=== PATIENT | male | born 1945 | race Hispanic/Latino ===

== ENCOUNTER 2016-05-13 19:45 | Observation (INO) | payer MEDICARE, BC ==
[2016-05-13 20:02] VITALS: BMI 38.7
--- NOTE | 2016-05-13 21:05 | ED PDOC ---
Arrival/HPI - General Chief Complaint: Lower Extremity Problem/Injury Time Seen by Provider: 05/13/16 19:58 Historian: Patient - History of Present Illness Narrative History of Present Illness (Text): 05/13/16 20:05 Isreal Borjas is a 70 year old male, whose past medical history includes CAD with multiple PCIs, hypertension, diabetes, and dyslipidemia, who presents to the ED sent by his PMD for bilateral lower extremity swelling for 2 weeks. Patient also reports associated erythema to the area. Patient denies any fever, chills, chest pain, shortness of breath, nausea, vomiting, diarrhea, urinary symptoms, back pain, neck pain, headache, dizziness, or any other complaints. PMD: Dr. Maximus Cruz Time/Duration: Other (2 weeks) Symptom Onset: Gradual Symptom Course: Unchanged Activities at Onset: Rest, Light Context: Home Past Medical History - Provider Review Nursing Documentation Reviewed: Yes - Infectious Disease Hx of Infectious Diseases: None - Tetanus Immunization Tetanus Immunization: Unknown - Cardiac Hx Cardiac Disorders: Yes (CAD, open heart sx 20 yrs ago) - Pulmonary Hx Respiratory Disorders: Yes Hx Bronchitis: Yes - HEENT Hx HEENT Disorder: No (WEARS RX GLASSES) - Endocrine/Metabolic Hx Diabetes Mellitus Type 2: Yes - Integumentary Other/Comment: melanoma removed form upper back 5 yr ago - Musculoskeletal/Rheumatological Hx Arthritis: Yes (L hip, R knee) - Gastrointestinal Hx Gastrointestinal Disorders: No - Genitourinary/Gynecological Hx Genitourinary Disorders: No Hx Reproductive Disorders: Yes (BPH) - Psychiatric Hx Depression: No Hx Emotional Abuse: No Hx Physical Abuse: No Hx Substance Use: No - Surgical History Hx Cardiac Catheterization: Yes (x5) Hx Coronary Stent: Yes (x2) Hx Open Heart Surgery: Yes (bypass x6, cardiac stent x2, cardiac cath x5) - Anesthesia Hx Anesthesia: Yes Hx Anesthesia Reactions: No Hx Malignant Hyperthermia: No - Suicidal Assessment Feels Threatened In Home Enviroment: No Family/Social History - Physician Review Nursing Documentation Reviewed: Yes Family/Social History: No Known Family HX Smoking Status: Former Smoker Hx Alcohol Use: Yes (socially) Frequency of alcohol use: Socially Hx Substance Use: No Allergies/Home Meds Allergies/Adverse Reactions: Allergies No Known Allergies Allergy (Verified 02/19/15 17:43) Home Medications: Home Meds Medication Instructions Recorded Confirmed Glipizide 10 mg PO BID 07/12/12 02/19/15 Metformin HCl 1,000 mg PO BID 07/12/12 02/19/15 Rivaroxaban [Xarelto] 15 mg PO DAILY 12/07/12 02/19/15 Aspirin [Ecotrin] 81 mg PO DAILY 02/08/14 02/19/15 Magnesium Oxide 400 mg PO DAILY 02/08/14 02/19/15 Potassium Chloride [Klor-Con 10] 10 meq PO DAILY 02/08/14 02/19/15 Atorvastatin [Lipitor] 40 mg PO DAILY 10/31/14 02/19/15 Losartan Potassium [Cozaar] 100 mg PO DAILY 10/31/14 02/19/15 Insulin Glargine,Hum.rec.anlog 30 unit SC AMHS 02/16/15 02/19/15 [Lantus] Lansoprazole [Prevacid] 30 mg PO DAILY 02/16/15 02/19/15 Silodosin [Rapaflo] 4 mg PO HS 02/16/15 02/19/15 Review of Systems - Physician Review All systems were reviewed & negative as marked: Yes - Review of Systems Constitutional: Normal. absent: Fevers Eyes: Normal ENT: Normal Respiratory: Normal. absent: SOB, Cough Cardiovascular: Normal. absent: Chest Pain Gastrointestinal: Normal. absent: Abdominal Pain, Diarrhea, Nausea, Vomiting Genitourinary Male: Normal. absent: Dysuria, Frequency, Hematuria, Urinary Output Changes Musculoskeletal: Other (+bilateral lower extremity swelling). absent: Neck Pain , Joint Swelling Skin: Normal. absent: Rash Neurological: Normal. absent: Headache, Dizziness Endocrine: Normal Hemo/Lymphatic: Normal Psychiatric: Normal Physical Exam Vital Signs Reviewed: Yes Vital Signs Temp Pulse Resp BP Pulse Ox 05/14/16 00:58 62 126/71 05/14/16 00:54 62 19 128/67 99 05/13/16 22:51 66 18 153/72 H 94 L 05/13/16 22:42 153/72 H 05/13/16 20:21 98.3 F 67 18 142/49 L 96 Temperature: Afebrile Blood Pressure: Normal Pulse: Regular Respiratory Rate: Normal Appearance: Positive for: Well-Appearing, Non-Toxic, Comfortable Pain Distress: None Mental Status: Positive for: Alert and Oriented X 3 - Systems Exam Head: Present: Atraumatic, Normocephalic Pupils: Present: PERRL Extroacular Muscles: Present: EOMI Conjunctiva: Present: Normal Mouth: Present: Moist Mucous Membranes Neck: Present: Normal Range of Motion Respiratory/Chest: Present: Clear to Auscultation, Good Air Exchange. No: Respiratory Distress, Accessory Muscle Use Cardiovascular: Present: Regular Rate and Rhythm, Normal S1, S2. No: Murmurs Abdomen: Present: Normal Bowel Sounds. No: Tenderness, Distention, Peritoneal Signs Back: Present: Normal Inspection Upper Extremity: Present: Normal Inspection. No: Cyanosis, Edema Lower Extremity: Present: Swelling (Bilateral lower extremity swelling, left greater than right), Erythema (Bilateral lower extremity erythema), Neurovascularly Intact. No: Edema Neurological: Present: GCS=15, CN II-XII Intact, Speech Normal Skin: Present: Warm, Dry, Normal Color. No: Rashes Psychiatric: Present: Alert, Oriented x 3, Normal Insight, Normal Concentration Medical Decision Making ED Course and Treatment: 05/13/16 20:05 Impression: 70 year old male sent for bilateral lower extremity swelling for 2 weeks with erythema. Differential Diagnosis include but are not limited to: DVT vs. cellulitis vs. PVD Plan: -- EKG -- Chest X-ray -- US Duplex Lower Extremities -- Labs, blood cultures -- Reassess and disposition Prior Visits: Notes and results from previous visits were reviewed. On 02/16/2015, pt was seen in the ED for shortness of breath and cough. Pt was admitted to the hospital for further evaluation. Progress Notes: Reviewed EKG, a fib at [address] bpm[address] Non-specific ST/T wave changes. 05/13/16 21:01 Reviewed sono, US Duplex Lower Extremities are negative for DVT. Reviewed radiology, Chest X-ray shows mild CHF. 05/13/16 22:[address] Cruz, who is aware and agrees with plan. Accepts pt in to his service. Requests CT Abdomen and Pelvis. Pt will go to Telemetry for CHF. Pt is no acute distress. Discussed results and hospital observation plan with pt , who is aware and verbalizes understanding. 05/13/16 23:[address] Abdomen and Pelvis, shows: 1. There is mild bilateral inguinal lymphadenopathy. 2. Question mild anal rectal wall thickening versus underdistention. 3. There is some anasarca in both flank and both hip regions, left greater than right. 4. Additional incidental and/or chronic findings as described. 05/14/16 00:35 - Lab Interpretations Microbiology Results: Microbiology Results 05/13/16 21:17 Blood-Venous Blood Culture - Preliminary NO GROWTH AFTER 3 DAYS 05/13/16 21:17 Blood-Venous Blood Culture - Preliminary NO GROWTH AFTER 3 DAYS Lab Results: 05/13/16 21:17 05/13/16 21:17 Lab Results 05/13/16 21:27: Troponin I 0.01 D, NT-Pro-B Natriuret Pep 2040 H 05/13/16 21:17: WBC 7.0 D, RBC 3.52, Hgb 11.1 L, Hct 34.2 L, MCV 97.2, MCH 31.5 , MCHC 32.5, RDW 16.4 H, Plt Count 211, MPV 11.1 H, Gran % 69.5 H, Lymph % (Auto ) 17.9 L, [place] % (Auto) 7.7 H, Eos % (Auto) 4.8, Baso % (Auto) 0.1, Gran # 4.88 , Lymph # 1.3, [place] # 0.5, Eos # 0.3, Baso # 0.01, PT 12.6 H, INR 1.17 H, APTT 30.7, Sodium 141, Potassium 4.0, Chloride 100, Carbon Dioxide 24, Anion Gap 21 H , BUN 17, Creatinine 1.4, Est GFR ( Amer) > 60, Est GFR (Non-Af Amer) 50 , Random Glucose 110, Calcium 9.2, Total Bilirubin 1.1, AST 25, ALT 21, Alkaline Phosphatase 96, Total Protein 7.4, Albumin 4.0, Globulin 3.5, Albumin/ Globulin Ratio 1.1 I have reviewed the lab results: Yes - RAD Interpretation Narrative RAD Interpretations (Text): CT Abdomen and Pelvis shows: Lower thorax: There is minimal bibasilar atelectasis. ABDOMEN: Liver: There are no focal liver lesions present. Gallbladder and bile ducts: Multiple calcified gallstones are present. No ductal dilation. Pancreas: Pancreas is partially fatty replaced. No ductal dilation. Spleen: The spleen is normal. Adrenals: The adrenal glands are normal. Kidneys and ureters: The kidneys are normal. No obstructing stones. No hydronephrosis. Stomach and bowel: Question mild anal rectal wall thickening versus underdistention. The stomach is normal. There is no evidence of intestinal obstruction. Colonic constipation is present. Appendix: A normal appendix is identified. PELVIS: Bladder: Bladder is decompressed. No stones. Reproductive: Prostate is enlarged measuring 5.1 CM transverse. ABDOMEN and PELVIS: Intraperitoneal space: There is no evidence of free intraperitoneal fluid. There is no free intraperitoneal air. Bones/joints: There is some anasarca in both flank and both hip regions, left greater than right. There are moderate degenerative changes present. There is moderate diffuse osteopenia. Soft tissues: There are bilateral fat-containing inguinal hernias. Vasculature: The aorta demonstrates moderate atherosclerotic calcification. No abdominal aortic aneurysm. Lymph nodes: There is mild bilateral inguinal lymphadenopathy. There are some top normal retroperitoneal nodes without jose d adenopathy. IMPRESSION: 1. There is mild bilateral inguinal lymphadenopathy. 2. Question mild anal rectal wall thickening versus underdistention. 3. There is some anasarca in both flank and both hip regions, left greater than right. 4. Additional incidental and/or chronic findings as described. Radiology Orders: 05/13/16 20:06 DUPLEX LOWER EXTRM VEIN BILAT [US] Stat 05/13/16 20:07 CHEST ONE VIEW [RAD] Stat 05/13/16 22:13 ABD & PELVIS W/O PO OR IV CONT [CT] Stat [employer]: ED Physician, Radiologist - EKG Interpretation Interpreted by ED Physician: Yes Type: 12 lead EKG - Medication Orders Current Medication Orders: Discontinued Medications Amiodarone HCl (Cordarone) 200 mg PO DAILY [facility] Last Admin: 05/15/16 09:31 Dose: 200 MG MAR Pulse and Blood Pressure Document 05/15/16 09:31 IG (Rec: 05/15/16 09:31 [id number]) Pulse Pulse Rate (60-90) 64 Blood Pressure Blood Pressure (100/60-150/90) 140/64 Aspirin (Ecotrin) 81 mg PO DAILY [facility] Last Admin: 05/15/16 09:30 Dose: 81 MG Atorvastatin Calcium (Lipitor) 40 mg PO DAILY [facility] Last Admin: 05/15/16 09:30 Dose: 40 MG Clopidogrel Bisulfate (Plavix) 75 mg PO DAILY [facility] Last Admin: 05/15/16 09:32 Dose: 75 MG Furosemide (Lasix) 20 mg IVP ONCE ONE Stop: 05/13/16 22:06 Last Admin: 05/13/16 22:42 Dose: 20 MG MAR Blood Pressure Document 05/13/16 22:42 MR (Rec: 05/13/16 22:42 MR [facility]-[id number]) Blood Pressure Blood Pressure (100/60-150/90) 153/72 IVP Administration Document 05/13/16 22:42 MR (Rec: 05/13/16 22:42 MR [facility] [place] [place]-[id number]) Charges for Administration # of IVP Administrations 1 Furosemide (Lasix) 40 mg IVP BID GLENNY Stop: 05/15/16 11:00 Last Admin: 05/15/16 11:09 Dose: 40 MG MAR Blood Pressure Document 05/15/16 11:09 IG (Rec: 05/15/16 11:09 IG [facility] [place] [id number]) Blood Pressure Blood Pressure (100/60-150/90) 150/80 IVP Administration Document 05/15/16 11:09 IG (Rec: 05/15/16 11:09 IG [facility] [id number]) Charges for Administration # of IVP Administrations 1 Furosemide (Lasix) 40 mg PO 0800,1400 [facility] Last Admin: 05/15/16 14:09 Dose: Ceftriaxone Sodium (Rocephin 1 Gram Ivpb) 100 mls @ 100 mls/hr IVPB DAILY [facility] PRN Reason: Protocol Last Admin: 05/14/16 10:12 Dose: 100 MLS/HR eMAR Start Stop Document 05/14/16 10:12 MOOKIE (Rec: 05/14/16 10:12 MOOKIE [facility] [place]-[id number]) Intravenous Solution Start Date 05/14/16 Start Time 10:12 End Date 05/14/16 End time 11:12 Total Infusion Time 60 Insulin Human Regular (Humulin R Low) 0 units SC ACHS GLNENY PRN Reason: Protocol Last Admin: 05/15/16 08:19 Dose: Not Given Non-Admin Reason: Blood Sugar Parameter Levothyroxine Sodium (Synthroid) 50 mcg PO ACB [facility]ENNY Last Admin: 05/15/16 11:09 Dose: 50 MCG Losartan Potassium (Cozaar) 100 mg PO DAILY [facility] Last Admin: 05/15/16 09:30 Dose: 100 MG Magnesium Oxide (Mag-Ox) 400 mg PO BID [facility] Last Admin: 05/15/16 09:30 Dose: 400 MG Metformin HCl (Glucophage) 1,000 mg PO BID [facility] Last Admin: 05/15/16 09:40 Dose: 1,000 MG Metoprolol Tartrate (Lopressor) 50 mg PO BID [facility] Last Admin: 05/15/16 09:30 Dose: 50 MG MAR Pulse and Blood Pressure Document 05/15/16 09:30 IG (Rec: 05/15/16 09:31 IG [id number]) Pulse Pulse Rate (60-90) 64 Blood Pressure Blood Pressure (100/60-150/90) 140/74 Silodosin [Rapaflo] (4 Mg (Home Med)) 4 mg PO HS [facility] Last Admin: 05/14/16 22:07 Dose: Rivaroxaban (Xarelto) 15 mg PO DAILY [facility] Last Admin: 05/14/16 10:13 Dose: 15 MG - Xochilt Statement The provider has reviewed the documentation as recorded by the Xochilt Abarca All medical record entries made by the Xochilt were at my direction and personally dictated by me. I have reviewed the chart and agree that the record accurately reflects my personal performance of the history, physical exam, medical decision making, and the department course for this patient. I have also personally directed, reviewed, and agree with the discharge instructions and disposition. Disposition/Present on Arrival - Present on Arrival Any Indicators Present on Arrival: No History of DVT/PE: No History of Uncontrolled Diabetes: No Urinary Catheter: No History of Decub. Ulcer: No History Surgical Site Infection Following: None - Disposition Have Diagnosis and Disposition been Completed?: Yes Diagnosis: Congestive heart failure Disposition: HOSPITALIZED Disposition Time: 22:00 Condition: FAIR
[2016-05-13 21:29] LABS: ADD MANUAL DIFF? NO
[2016-05-13 21:44] LABS: BASO # 0.01 K/mm3 (0.0-2.0); BASO % 0.1 % (0.0-3.0); EOS # 0.3 (0.0-0.7); EOS % 4.8 % (1.5-5.0); GRAN # 4.88 (1.4-6.5); GRAN % 69.5 % (50.0-68.0); HEMATOCRIT 34.2 % (42.0-52.0); LYMPH # 1.3 (1.2-3.4); LYMPH % 17.9 % (22.0-35.0); MEAN CELL VOLUME 97.2 fL (80.0-105.0); MEAN CORPUSCULAR HEMOGLOBIN 31.5 pg (25.0-35.0); MEAN CORPUSCULAR HGB CONC 32.5 g/dl (31.0-37.0); MEAN PLATELET VOLUME 11.1 fl (7.0-11.0); MONO # 0.5 (0.1-0.6); MONO % 7.7 % (1.0-6.0); PLATELET COUNT 211 10^3/uL (120.0-450.0); RED CELL DISTRIBUTION WIDTH 16.4 % (11.5-14.5)
[2016-05-13 21:51] LABS: ALB/GLOB RATIO 1.1 (1.1-1.8); ALKALINE PHOSPHATASE 96 U/L (38-133); ALT/SGPT 21 U/L (7-56); AST/SGOT 25 U/L (15-59); BILIRUBIN,TOTAL 1.1 mg/dL (0.2-1.3); BLOOD UREA NITROGEN 17 mg/dL (7-21); CALCIUM 9.2 mg/dL (8.4-10.5); CARBON DIOXIDE 24 mmol/L (21-33); CHLORIDE 100 mmol/L (98-107); GFR AFRICAN-AMERICAN > 60; GLUCOSE,RANDOM 110 mg/dL (70-110); SODIUM 141 mmol/L (132-148); TOTAL PROTEIN 7.4 g/dL (5.8-8.3)
[2016-05-13 21:55] LABS: INR 1.17 (0.93-1.08); PARTIAL THROMBOPLASTIN TIME 30.7 Seconds (23.7-30.8)
[2016-05-13 23:13] LABS: TROPONIN I 0.01 ng/mL
--- NOTE | 2016-05-14 07:18 | CT ---
PROCEDURE: CT Abdomen and Pelvis without intravenous contrast HISTORY: left leg swelling COMPARISON: None. TECHNIQUE: Unenhanced study. Neither oral nor intravenous contrast administered. Radiation dose: Total exam DLP = 1203.89 mGy-cm. FINDINGS: LOWER THORAX: Unremarkable. LIVER: Unremarkable. No gross lesion or ductal dilatation. GALLBLADDER AND BILE DUCTS: Cholelithiasis without CT evidence of acute cholecystitis. PANCREAS: Unremarkable. No gross lesion or ductal dilatation. SPLEEN: Unremarkable. ADRENALS: Unremarkable. No mass. KIDNEYS AND URETERS: Unremarkable. No hydronephrosis. No solid mass. VASCULATURE: Unremarkable. No aortic aneurysm. BOWEL: Unremarkable. No obstruction. No gross mural thickening. APPENDIX: Unremarkable. Normal appendix. PERITONEUM: Unremarkable. No free fluid. No free air. LYMPH NODES: Small mesenteric and retroperitoneal lymph nodes. Similar-sized bilateral asymmetric lymph nodes in the inguinal regions. BLADDER: Unremarkable. REPRODUCTIVE: Unremarkable. BONES: No acute fracture. OTHER FINDINGS: Bilateral fat containing hernias. IMPRESSION: Cholelithiasis without CT evidence of acute cholecystitis. Retroperitoneal, pelvic and bilateral inguinal lymphadenopathy although the preponderance 1 lymph nodes are less than 1 cm. Concordant results (preliminary interpretation) provided by [employer]. Procedure Completed: 22:55 Preliminary ([facility]) Report: Dictated and Authenticated: 23:19. Final Interpretation: 07:17. May 14, 2016.
[2016-05-14 07:30] LABS: ADD MANUAL DIFF? NO
[2016-05-14 07:35] LABS: BASO # 0.02 K/mm3 (0.0-2.0); BASO % 0.3 % (0.0-3.0); EOS # 0.3 (0.0-0.7); EOS % 5.1 % (1.5-5.0); GRAN # 4.64 (1.4-6.5); GRAN % 69.2 % (50.0-68.0); HEMATOCRIT 36.9 % (42.0-52.0); LYMPH # 1.2 (1.2-3.4); LYMPH % 17.9 % (22.0-35.0); MEAN CELL VOLUME 97.9 fL (80.0-105.0); MEAN CORPUSCULAR HEMOGLOBIN 30.5 pg (25.0-35.0); MEAN CORPUSCULAR HGB CONC 31.2 g/dl (31.0-37.0); MONO # 0.5 (0.1-0.6); MONO % 7.5 % (1.0-6.0); PLATELET COUNT 204 10^3/uL (120.0-450.0); RED CELL DISTRIBUTION WIDTH 16.6 % (11.5-14.5); WHITE BLOOD COUNT 6.7 10^3/ul (4.5-11.0)
[2016-05-14 07:47] LABS: CALCIUM 9.3 mg/dL (8.4-10.5); MAGNESIUM 1.6 mg/dL (1.7-2.2); POTASSIUM 4.1 mmol/L (3.6-5.0)
[2016-05-14] MEDS: Insulin Reg-LOW-Coverage SC SCH ×4 (08:17→22:05)
[2016-05-14] MEDS: Levothyroxine 50 MCG TAB PO SCH (08:18)
--- NOTE | 2016-05-14 08:18 | US ---
HISTORY: Leg pain and swelling. Evaluate for DVT PHYSICIAN(S): Joel Guthrie MD. TECHNIQUE: Duplex sonography and color-flow Doppler with graded compression were used to evaluate the deep venous systems of both lower extremities. The exam is limited by edema. The tibial veins are not well seen. FINDINGS: The visualized deep venous systems of both lower extremities are sonographically normal and compressible. Normal wave forms and augmentation are seen. There is no sonographic evidence for deep venous thrombosis in the visualized segments of both lower extremities. IMPRESSION: No sonographic evidence for deep venous thrombosis in the visualized segments of both lower extremities.
--- NOTE | 2016-05-14 09:23 | RAD ---
PROCEDURE: CHEST RADIOGRAPH, 1 VIEW HISTORY: pain COMPARISON: 02/16/2015 FINDINGS: LUNGS: Clear. PLEURA: No pneumothorax or pleural fluid seen. CARDIOVASCULAR: Sternotomy wires. Mild cardiomegaly. Likely CABG. Surgical clips in both axillae. OSSEOUS STRUCTURES: No significant abnormalities. VISUALIZED UPPER ABDOMEN: Normal. OTHER FINDINGS: None. IMPRESSION: No active disease.
[2016-05-14] MEDS ORDERED: cefTRIAXone 1 gm 100 ML IVPB SCH (10:00)
[2016-05-14] MEDS: Magnesium Oxide 400 mg Tab UD PO SCH ×2 (10:12→18:13)
--- NOTE | 2016-05-14 14:52 | CP.PCM.CON ---
History of Present Illness - History of Present Illness History of Present Illness: 70 year old male with PMH of CAD S/P stenting and cardiac bypass surgery, DM with peripheral neuropathy, hyerplipidemia, back melanoma S/P surgical removal, CHF with EF 40-45%, left knee arthritis was sent in for admission by his PMD because of bilateral lower extremity swelling for the past 2 weeks. He was recently in [place] for vacation and apparently it started during that time. The patient did a good amount of walking while in [place]. The patient denies swimming , no known animal contacts, did not travel through wooded areas. He denies fever or chills, no nausea or vomiting, no chest pain, no headache or dizziness , no abdominal pain, no dysuria. The patient also denies insect bites or known tick bites, no trauma to the foot or legs. Infectious Diseases consult is requested to further evaluate and manage. Social history: He is a former smoker, still drinks alcoholic beverages daily, no illicit drug use; he works in a bar; has no pets at home; he traveled as outlined above Review of Systems - Review of Systems All systems: reviewed and no additional remarkable complaints except (as per HPI ) Past Patient History - Infectious Disease Hx of Infectious Diseases: None - Tetanus Immunizations Tetanus Immunization: Unknown - Past Medical History & Family History Past Medical History?: Yes Past Family History: Reviewed and not pertinent - Past Social History Smoking Status: Former Smoker Alcohol: Occasional Drugs: Denies Home Situation {Lives}: With Family - CARDIAC Hx Cardiac Disorders: Yes (CAD) Hx Hypercholesterolemia: Yes Hx Hypertension: Yes - PULMONARY Hx Bronchitis: Yes Hx Pneumonia: Yes - HEENT Hx HEENT Problems: No (WEARS RX GLASSES) - ENDOCRINE/METABOLIC Hx Diabetes Mellitus Type 2: Yes - INTEGUMENTARY Other/Comment: melanoma removed form upper back 5 yr ago - MUSCULOSKELETAL/RHEUMATOLOGICAL Hx Falls: No - GASTROINTESTINAL Hx Gastrointestinal Disorders: No - GENITOURINARY/GYNECOLOGICAL Hx Prostate Problems: Yes (BPH) - PSYCHIATRIC Hx Substance Use: No - SURGICAL HISTORY Hx Surgeries: Yes (Bilateral knee replacement) Hx Coronary Stent: Yes Hx Open Heart Surgery: Yes (CABG) - ANESTHESIA Hx Anesthesia: Yes Hx Anesthesia Reactions: No Hx Malignant Hyperthermia: No Meds Allergies/Adverse Reactions: Allergies Allergy/AdvReac Type Severity Reaction Status Date / Time No Known Allergies Allergy Verified 02/19/15 17:43 - Medications Medications: Current Medications Amiodarone HCl (Cordarone) 200 mg PO DAILY [facility] Last Admin: 05/14/16 10:09 Dose: 200 mg Aspirin (Ecotrin) 81 mg PO DAILY [facility] Last Admin: 05/14/16 10:09 Dose: 81 mg Atorvastatin Calcium (Lipitor) 40 mg PO DAILY [facility] Last Admin: 05/14/16 10:10 Dose: 40 mg Clopidogrel Bisulfate (Plavix) 75 mg PO DAILY [facility] Last Admin: 05/14/16 10:12 Dose: 75 mg Furosemide (Lasix) 40 mg IVP BID [facility] Last Admin: 05/14/16 10:09 Dose: 40 mg Ceftriaxone Sodium (Rocephin 1 Gram Ivpb) 100 mls @ 100 mls/hr IVPB DAILY [facility] PRN Reason: Protocol Last Admin: 05/14/16 10:12 Dose: 100 mls/hr Insulin Human Regular (Humulin R Low) 0 units SC ACHS [facility] PRN Reason: Protocol Last Admin: 05/14/16 08:17 Dose: 1 units Levothyroxine Sodium (Synthroid) 50 mcg PO ACB [facility] Last Admin: 05/14/16 08:18 Dose: 50 mcg Losartan Potassium (Cozaar) 100 mg PO DAILY [facility] Last Admin: 05/14/16 10:09 Dose: 100 mg Magnesium Oxide (Mag-Ox) 400 mg PO BID [facility] Last Admin: 05/14/16 10:12 Dose: 400 mg Metformin HCl (Glucophage) 1,000 mg PO BID [facility] Last Admin: 05/14/16 10:09 Dose: 1,000 mg Metoprolol Tartrate (Lopressor) 50 mg PO BID [facility] Last Admin: 05/14/16 10:10 Dose: 50 mg Silodosin [Rapaflo] (4 Mg (Home Med)) 4 mg PO [facility] Rivaroxaban (Xarelto) 15 mg PO DAILY [facility] Last Admin: 05/14/16 10:13 Dose: 15 mg Physical Exam - Constitutional Appears: Non-toxic, No Acute Distress - Head Exam Head Exam: NORMAL INSPECTION - ENT Exam ENT Exam: Mucous Membranes Moist - Neck Exam Neck exam: Negative for: Lymphadenopathy, Meningismus - Respiratory Exam Respiratory Exam: Decreased Breath Sounds - Cardiovascular Exam Cardiovascular Exam: +S1, +S2 - GI/Abdominal Exam GI & Abdominal Exam: Soft. absent: Tenderness - Extremities Exam Additional comments: bilateral 2+ pitting edema on the lower extremities with blanching erythema but no tenderness noted, no increased warmth, no note of open wounds or bliters; edema is erythema Results - Vital Signs Recent Vital Signs: Last Vital Signs Temp 97.8 F 05/14/16 06:00 Pulse 64 05/14/16 08:44 Resp 20 05/14/16 06:00 BP 134/90 05/14/16 10:09 Pulse Ox 99 05/14/16 06:00 - Labs Result Diagrams: 05/14/16 06:30 05/14/16 06:30 Labs: Laboratory Results - last 24 hr 05/14/16 05/14/16 05/14/16 06:30 07:33 11:06 WBC 6.7 RBC 3.77 Hgb 11.5 L Hct 36.9 L MCV 97.9 MCH 30.5 MCHC 31.2 RDW 16.6 H Plt Count 204 MPV 11.0 Gran % 69.2 H Lymph % (Auto) 17.9 L [place] % (Auto) 7.5 H Eos % (Auto) 5.1 H Baso % (Auto) 0.3 Gran # 4.64 Lymph # 1.2 [place] # 0.5 Eos # 0.3 Baso # 0.02 Sodium 139 Potassium 4.1 Chloride 102 Carbon Dioxide 26 Anion Gap 15 BUN 19 Creatinine 1.5 H Est GFR ( Amer) 56 Est GFR (Non-Af Amer) 46 POC Glucose (mg/dL) 187 H 213 H Random Glucose 158 H Calcium 9.3 Magnesium 1.6 L NT-Pro-B Natriuret Pep 2100 H TSH 3rd Generation 4.41 Assessment & Plan - Assessment and Plan (Free Text) Plan: Assessment bilateral lower extremity pitting edema, probably related to congestive heart failure as well as lymphatic and venous insufficiency; clinically does not behave like cellulitis CAD S/P stenting and cardiac bypass surgery DM hyerplipidemia back melanoma S/P surgical removal CHF with EF 40-45% left knee arthritis Plan Will monitor off antibiotics since he is at risk for nosocomial infections; doppler U/S did not show DVT; patient may benefit from lasix and leg elevation but will defer to Cardiology Will follow clinically
--- NOTE | 2016-05-14 18:32 | CARD ---
APPROVED REPORT EKG Measurement Heart [id number] <Conclusion> Atrial fibrillation with slow ventricular response Low voltage QRS Cannot rule out Anteroseptal infarct, age undetermined T wave abnormality, consider lateral ischemia or digitalis effect Abnormal ECG
--- NOTE | 2016-05-14 19:02 | CARD ---
APPROVED REPORT EXAM: Two-dimensional and M-mode echocardiogram with Doppler and color Doppler. INDICATION Congestive Heart Failure 2D DIMENSIONS Left Atrium (2D)4.3 (1.6-4.0cm)IVSd1.0 (0.7-1.1cm) LVDd5.7 (3.9-5.9cm)PWd1.2 (0.7-1.1cm) LVDs5.1 (2.5-4.0cm)FS (%) 10.9 % LVEF (%)23.3 (>50%) M-Mode DIMENSIONS Aortic Root3.10 (2.2-3.7cm)Aortic Cusp Exc.1.50 (1.5-2.0cm) Aortic Valve AoV Peak Ybczlddy671.0cm/Michael Peak GR.6mmHg Mitral Valve MV E Okwnchba42.4cm/sMV A Hwoklfrv71.4cm/sE/A ratio1.7 TDI Lateral E' Peak V6.73cm/sMedial E' Peak V4.87cm/sE/Lateral E'12.8 E/Medial E'17.7 Pulmonary Valve PV Peak Drryhxyg61.3cm/sPV Peak Grad.1mmHg Tricuspid Valve TR Peak Fztyhhjl251mk/sRAP [id number] Peak Gr.41mmHg [id number] LEFT VENTRICLE The Left Ventricle is mildly dilated. There is normal left ventricular wall thickness. The systolic function is moderately impaired.EF-30-35% There is normal LV segmental wall motion. The left ventricular diastolic function is normal. No left ventricle thrombus noted on this study. There is no ventricular septal defect visualized. There is no left ventricular aneurysm. RIGHT VENTRICLE The right ventricle is mildly dilated. There is normal right ventricular wall thickness. Systolic function is mildly reduced. ATRIA The left atrium is moderately dilated. The right atrium is mildly dilated. The interatrial septum is intact with no evidence for an atrial septal defect. AORTIC VALVE The aortic valve is calcified and displays decreased opening. No aortic regurgitation is present. There is mild valvular aortic stenosis. There is no aortic valvular vegetation. MITRAL VALVE The mitral valve is thickened but opens well. Mitral regurgitation is mild. There is no mitral valve stenosis. There is no evidence of mitral valve prolapse. TRICUSPID VALVE The tricuspid valve leaflets are thickened , but open well. There is mild to moderate tricuspid regurgitation.RVSP-51 mof Hg. There is no tricuspid valve stenosis. There is no tricuspid valve prolapse or vegetation. PULMONIC VALVE The pulmonic valve is mildly thickened. There is trace pulmonic valvular regurgitation. There is no pulmonic valvular stenosis. GREAT VESSELS The aortic root is normal in size. The ascending aorta is normal in size. The pulmonary artery is normal. The IVC was not visualized. PERICARDIAL EFFUSION There is no pleural effusion. There is a small pericardial effusion. <Conclusion> Four Chamber Dilatation.EF-30-35%. Mitral regurgitation is mild. There is mild to moderate tricuspid regurgitation.RVSP-51 mof Hg. There is a small pericardial effusion. No vegetation, No thrombus noted
[2016-05-14 20:14] LABS: TROPONIN I < 0.01 ng/mL
[2016-05-14] MEDS ORDERED: SILODOSIN 4 MG PO SCH (22:00)
[2016-05-15 00:12] VITALS: RESP 20
[2016-05-15 05:39] VITALS: O2SAT 94
[2016-05-15 07:26] LABS: ADD MANUAL DIFF? NO
[2016-05-15 07:39] LABS: BASO # 0.01 K/mm3 (0.0-2.0); BASO % 0.1 % (0.0-3.0); EOS # 0.4 (0.0-0.7); EOS % 5.5 % (1.5-5.0); GRAN # 4.94 (1.4-6.5); GRAN % 69.8 % (50.0-68.0); HEMATOCRIT 34.6 % (42.0-52.0); LYMPH # 1.2 (1.2-3.4); LYMPH % 16.6 % (22.0-35.0); MEAN CELL VOLUME 96.6 fL (80.0-105.0); MEAN CORPUSCULAR HEMOGLOBIN 30.4 pg (25.0-35.0); MEAN CORPUSCULAR HGB CONC 31.5 g/dl (31.0-37.0); MEAN PLATELET VOLUME 10.7 fl (7.0-11.0); MONO # 0.6 (0.1-0.6); PLATELET COUNT 196 10^3/uL (120.0-450.0); RED CELL DISTRIBUTION WIDTH 16.1 % (11.5-14.5); WHITE BLOOD COUNT 7.1 10^3/ul (4.5-11.0)
[2016-05-15 07:45] LABS: ALB/GLOB RATIO 1.2 (1.1-1.8); BILIRUBIN,TOTAL 1.3 mg/dL (0.2-1.3); CALCIUM 8.7 mg/dL (8.4-10.5); MAGNESIUM 1.6 mg/dL (1.7-2.2); PHOSPHOROUS 3.7 mg/dL (2.5-4.5); POTASSIUM 4.2 mmol/L (3.6-5.0); TOTAL PROTEIN 6.9 g/dL (5.8-8.3)
--- NOTE | 2016-05-15 08:01 | CON ---
DATE: 05/14/2016 SERVICE: Cardiology. REASON FOR CONSULTATION AND FOLLOWUP: Coronary artery disease, status post multiple PTCAs, admitted with swelling of extremity and shortness of breath. Rule out congestive heart failure. BRIEF CLINICAL HISTORY: This is a 70-year-old male with past medical history of morbid obesity, diab etes, hypertension, hyperlipidemia, coronary artery disease, status post CABG, history of multiple PT Abhishek, admitted with complaining of cough, shortness of breath and swelling of extremities. PAST MEDICAL HISTORY: Significant for coronary artery bypass surgery x 2, first was 22 years ago and the second time was 10 years ago, history of cardiomyopathy, LV dysfunction, history of congestive h eart failure, history of paroxysmal atrial fibrillation. PREVIOUS CARDIAC WORKUP: The patient had a MUGA scan done 08/29/2013 that showed ejection fraction 45 %. The patient has history of atrial fibrillation in 2012, had a stress test in 08/2013 that shows ar ea of ischemia and ____ decided to be treated medically. Most recently, the patient had a stress luther t 10/22/2015 that is abnormal, 45%, partially reversible inferolateral suspicious for ischemia, mild LV ____ function. In comparison to the last study, there is ____ reversible changes, decided to be olamide ated medically. PAST SURGICAL HISTORY: Significant for CABG, cardiomyopathy. The patient's most recent echocardiography done on 02/18/2015 showed ejection fraction 40%-45%, trace a ortic regurgitation, trace to mild mitral regurgitation, mild to moderate tricuspid regurgitation, ej ection fraction 40%-45%, RV systolic pressure 42, mild to moderate tricuspid regurgitation. Last str ess test 10/31/2014 showed abnormal SPECT myocardial perfusion study, ejection fraction 40%, partially reversible anterior anterolateral defect suspicious for ischemia. In comparison to the last study , there is less reversible ischemic changes. SOCIAL HISTORY: Denies smoking. Denies any alcohol abuse. ALLERGIES: No known drug allergy. CURRENT MEDICATIONS: The patient is taking Rapaflo for prostate, Xarelto for atrial fibrillation, po tassium chloride, metformin, magnesium oxide, losartan, Cozaar, Prevacid, glipizide, clopidogrel, sunny rvastatin, aspirin, amiodarone for paroxysmal atrial fibrillation. REVIEW OF SYSTEMS: As per HPI. PHYSICAL EXAMINATION: VITAL SIGNS: Temperature afebrile, heart rate 87, blood pressure 132/77. HEENT: PERRLA. Extraocular muscles intact. NECK: Supple. No carotid bruit or thyromegaly. CHEST: Clear to auscultation. HEART: S1, S2 irregular. ABDOMEN: Soft. EXTREMITIES: Clubbing and cyanosis negative. EKG shows atrial fibrillation, rate of 55. LABORATORY DATA: Blood workup as follows: WBC 6.7, hemoglobin ____, hematocrit 36.9, platelet count 204. Chemistry shows sodium ____, potassium ____, chloride 102, carbon dioxide 26, anion gap of 19, BUN 15, creatinine 1.5. BNP 2040. IMPRESSION: Mild congestive heart failure, leg edema, cardiomyopathy, coronary artery disease, coron trent artery bypass graft x 2, 20 years ago and 10 years ago, history of multiple percutaneous translum inal coronary angioplasties, cardiomyopathy, most recent stress test, no significant change from befo re. RECOMMENDATION: Get lipid profile, TSH, hemoglobin A1c. We will use diuretics. Echo to assess LV f unction. We will follow with you. Thank you, Dr. Cruz, for providing the opportunity in taking care of this patient. We will follow with you. Don Cullen MD cc: [id number] TT: 05/14/2016 21:32:37 Confirmation # [id number] Dictation # [id number] neeraj
[2016-05-15] MEDS: Insulin Reg-LOW-Coverage SC SCH (08:19)
[2016-05-15] MEDS: Magnesium Oxide 400 mg Tab UD PO SCH (09:30)
--- NOTE | 2016-05-15 09:38 | PN ---
DATE: 05/15/2016 REASON FOR CONSULTATION AND FOLLOWUP: Coronary artery disease, status post multiple PTCAs, admitted with swelling of extremities and shortness of breath, rule out congestive heart failure. BRIEF CLINICAL HISTORY: A 70-year-old male with a past medical history significant for obesity, diab etes, hypertension, hyperlipidemia, coronary artery disease, status post CABG, history of multiple PT Abhishek. Admitted with a complaint of cough, shortness of breath and swelling of extremities. Denies an y chest pain. PHYSICAL EXAMINATION: VITAL SIGNS: Temperature afebrile, heart rate , blood pressure 119/54. HEENT: PERRLA. Extraocular muscles intact. NECK: Supple. No carotid bruits. No thyromegaly. CHEST: Clear to auscultation. HEART: S1, S2 regular. ABDOMEN: Soft. EXTREMITIES: Clubbing, cyanosis negative. BLOOD WORKUP: WBC 7.8, hemoglobin 10.9, hematocrit 34.6, platelet count 196. Chemistry shows sodium 134, potassium 4.2, chloride 99, carbon dioxide 27, anion gap of 12, BUN 22, creatinine 1.5. The patient underwent echocardiography done yesterday that shows ejection fraction 30%-35%, mild mitr al regurgitation, mild to moderate tricuspid regurgitation, RV systolic pressure 51, small pericardia l effusion noted, no vegetation or thrombus noted. The patient had last stress test 10/31/2014, shows abnormal SPECT myocardial perfusion, ejection fraction 40%, partially reversible anterior defect, peck spicious for ischemia. Compared to last study, no significant change. RECOMMENDATIONS: Continue Lasix. We will get a MUGA scan to see ejection fraction for need for auto matic implantable cardioverter-defibrillator in future. No significant change in stress test i schemia unchanged, history of coronary artery disease, history of coronary artery bypass graft twice 10 years ago and 20 years ago, multiple percutaneous transluminal coronary angioplasties, cardiomyopa thy, ischemic. Recent stress test, no change from there. Monitor electrolytes. We will cut down e Lasix to prevent going into acute renal failure. We will discontinue telemetry. We will follow wi you. Thank you, Dr. Cruz, for providing us the opportunity in taking care of the patient. Cardiovascula r status is stable. Continue gentle diuretics, will change to p.o. We will follow with you. oDn Cullen MD cc: [id number] TT: 05/15/2016 09:37:30 Confirmation # [id number] Dictation # [id number] en
--- NOTE | 2016-05-15 11:08 | HP ---
The patient is a 70-year-old male who came in with swelling of both lower extremities, left more than right. HISTORY OF PRESENT ILLNESS: This is a 70-year-old male with ischemic heart disease, multiple stents, multiple cardiac caths, has a history of congestive heart failure, below normal ejection fraction, s ystolic dysfunction, chronic, came into the hospital with worsened leg swelling, left more than right . The patient does have a history of traveling to [place], staying and driving for a long time. The p atde also has been on medication at home including Xarelto 15 mg and Lasix 40 mg daily. The patien t was taking his meds according to him and has been traveling in [place] for almost a week or more, cam e back with travel for almost 9 hours coming and going, was worsening his leg swelling. He does feel winded, but there is no paroxysmal nocturnal dyspnea. There is no cough. There is no fever. He do es have some bruises in his left toes. There is not any other complaint. His sugar is controlled. The patient was concerned about any infection in his leg or any ischemia. The patient denied any kamilla n. Denied any fever, chills or any other complaints. PAST MEDICAL HISTORY: As I mentioned, chronic atrial fibrillation, paroxysmal, coronary artery disea se, multiple stents, chronic ischemic heart disease, multiple stents, congestive heart failure, chron ic systolic occasionally with acute worsening; insulin-dependent diabetes type 2, using insulin; hype rcholesterolemia, morbid obesity, prostate enlargement. HOME MEDICATIONS: Rapaflo 4 mg at night, Xarelto 15, potassium 10 once a day, metformin 1000 b.i.d., magnesium 400 p.o. daily, Cozaar 100 mg p.o. daily, Prevacid 30 mg p.o. daily, Lantus 10 units q. a. m. and at bedtime, glipizide 10 mg b.i.d., Lasix 40 p.o. daily, Plavix 75 mg once a day, Lipitor 40 a t bedtime, aspirin 81 mg q. day, amiodarone 200 mg p.o. daily. ALLERGIES: No known allergies. SOCIAL HISTORY: He quit smoking many years ago. Drinking not anymore, not even social. He does not drink. PAST SURGICAL HISTORY: He does have bilateral knee replacement. He does have multiple cardiac stent s. He does have also melanoma on the back, was resected 4 or 5 years ago. REVIEW OF SYSTEMS: As in the present illness. He has bilateral arthritis and back pain. He also co mplains of leg swelling occasionally numbness, tingling in his hands and in his feet, especially. Le g cramps at night, short of breath occasionally. PHYSICAL EXAMINATION: VITAL SIGNS: Temperature 98.1, heart rate 87, blood pressure 132/77, respirations 20. HEAD AND NECK: Normal. No JVD, no thyromegaly. CHEST: Clear, good air entry. CARDIAC: First sound, second sound normal. Systolic murmur. ABDOMEN: Obese, nontender. EXTREMITIES: Left leg is more swollen up to the thigh more than the right leg. No tenderness. It f eels warm, but there is no jose d tenderness. NEUROLOGIC: Normal. LABORATORY DATA: When he came in sodium 139, potassium 4.1, chloride 102, bicarb 26, BUN 19, creatin ine 1.5, blood sugar 158, his calcium 9.3, magnesium 1.6. ProBNP 2400. The patient also had the hem atology which shows white count 7, hemoglobin 11.1, hematocrit 34.2, platelets 211. He also had a PT , PTT which was INR 1.17 and PTT normal 30.7. He also had a chest x-ray which shows no active pulmon trent disease, no congestive heart failure. A venous Doppler of lower extremities shows no evidence of DVT. CT abdomen and pelvis shows small lymphadenopathy, retroperitoneal, pelvic and inguinal small lymphadenopathy. The patient also had an electrocardiogram which shows low voltage QRS, atrial fibri llation, slow ventricular response, cannot rule out anteroseptal infarctions, T-wave abnormality, con marine insulator lateral ischemia or digitalis effect. The patient also had an echocardiogram done by Dr. Cullen, shows EF 35% with mild pulmonary hypertension 51 mmHg. IMPRESSION AND PLAN: This 70-year-old man with history of coronary artery disease, ischemic heart di sease with low ejection fraction, came in with lower extremities edema, left more than right. Venous Doppler is negative. CT abdomen and pelvis: No masses. Most likely, the patient could have conges tive heart failure, right heart failure secondary to left heart failure. We will consider increasing his diuretics. We will admit the patient for: 1. Acute congestive heart failure, acute systolic on top of chronic. Continue IV Lasix. Continue o ther medications, anticoagulation with Xarelto, Plavix and aspirin. We will continue these. Continu e Cordarone. We will check his TSH. We will get Dr. Cullen, cardiology consult, to help us with the m anagement and we will follow up clinically. 2. Left leg warm, possible tenderness. Does not look like any infections. We will get infectious jayy story help us with the left leg warm sensations and also the lymphadenopathy which is considered nonspecific. I doubt any infection, but we will continue current treatment. The patient received 1 Rocephin dose and we will follow up with the other consultants. 3. Prostate enlargement, diabetes type 2, on insulin. Continue those treatments, Rapaflo, metformin , insulin coverage, Lipitor, Lopressor and we will follow up clinically. Continue current treatment. Follow up clinically. We will keep the head of the bed at 45 degrees. The patient is obese. The possibility of sleep apnea has been discussed with the patient. He refused completely the CPAP machi ne in the past. He is not willing to deal with that. Continue current management. Follow up clinic ally. Vance Cruz MD cc: [phone] TT: 05/15/2016 11:07:50 nc
[2016-05-15] MEDS: Levothyroxine 50 MCG TAB PO SCH (11:09)
[2016-05-15 11:46] VITALS: BP 148/77; PULSE 61; TEMP 97.9
--- NOTE | 2016-05-15 18:17 | CARD ---
APPROVED REPORT INDICATION Congestive Heart Failure CMP,CABG PROCEDURE The above named patient recieved 28.7 millicuries of Tc99m tagged red blood cells intravenously. After achieving equilibrium, gated imaging of 16/frame/cycle was performed utillizing Gamma camera interfaced with a digital computer and gated device. Gated imaging was then performed in the left anterior oblique, anterior, and the left lateral projections. Findings Left Ventricle: The quality of the study is good. The left ventricle is mildly enlarged in size. The right ventricle is normal in size. Wall motion study shows good contractility of the left ventricle. RV wall motion is normal. The right atrium is dynamic.. The remainder of the study is unremarkable. Impressions Normal gated wall motion of left ventricle wall. LVEF = 53%. LBBB Normal RV wall motion.
--- NOTE | 2016-05-16 09:28 | DS ---
The patient is a 70-year-old male who came in with congestive heart failure. Left leg has much more swelling than the right, and he underwent a venous Doppler, which was negative. His BNP was 2400, an d seen by cardiology, Dr. Aponte. The patient was given IV Lasix twice, he had echocardiography whic h shows pulmonary hypertension, and EF in the 35-40%. The patient, day of discharge, under MUGA to assess his left ventricular function; was read by Dr. Sa hanane Beauchamp, and the ejection fraction was 53%, and normal right ventricular wall motion. The patient was given Lasix and was advised to follow up in the office. The patient has no other complaint. He dempsey s have sleep apnea. Needs to be evaluated as outpatient. He did refuse a mask and the idea of putmalka ng a mask on his face, and otherwise negative. PHYSICAL EXAMINATION: On day of discharge is as follows: Temperature 97, heart rate 61, blood pressure 148/77, respirations 20. HEAD AND NECK: Normal. No JVD, no thyromegaly. CHEST EXAMINATION: Clear, good entry. CARDIAC: First and second sounds normal. ABDOMEN: Soft, obese, nontender. EXTREMITIES: Leg edema, left, all the way up to the thigh, but it is softer and less swelling than b efore. Left is more than right. NEUROLOGIC EXAMINATION: Normal. LABORATORY: White count 7.1, hemoglobin 10.9, hematocrit 34.6, platelet is 96. His chemistry shows sodium 134, potassium 4.2, chloride 99, bicarb 27, BUN 22, creatinine 1.5. Blood sugar 157. Liver f unction test is normal. Magnesium 1.6. The patient also had LDL which was 62, and had TSH was 3.74. DISCHARGE DIAGNOSES: 1. Acute systolic heart failure on top of chronic systolic and diastolic heart failure. Continue Las ix 40 b.i.d., potassium 10 mEq once a day, and follow up in the office in a week in the office. 2. Pulmonary hypertension, probably secondary to left anterior failure. A component of obstructive s leep apnea has been discussed with the patient. 3. Diabetes, using insulin. Will continue current medicines. 4. Coronary artery disease, multiple stents. The patient has bypass surgery in the past. 5. Hypercholesterolemia, morbid obesity, peripheral neuropathy, chronic osteoarthritis, history of bi lateral knee replacements, history of chronic atrial fibrillation, anemia. The patient had colonosco pies in the past. He also has been maintained on the Xarelto 50 mg, plus Plavix, plus baby aspirin 8 1 mg. PLAN: Continue current treatment. Continue Lopressor, Lipitor, insulin, Lantus, Percocet, Cozaar 10 0 once a day, mag oxide was advised to continue 400 mg b.i.d., metformin 1000 b.i.d., potassium 10 mE q once a day, and Rapaflo 4 mg p.o. at bedtime. The patient also advised to continue Cordarone, whic h kept his cardiac status stable. Continue current therapy, see in a week, monitor. Keep the leg el evated, and keep head of the bed elevated. Vance Cruz MD cc: [id number] TT: 05/16/2016 09:27:26 jn
== END 2016-05-15 14:53 | disposition home or self-care (01) ==
LOC: ED 19:45 → ERH 05-14 00:18 → 2RSO 05-14 02:42
PROVIDERS: ADMIT Internal Medicine; ATTEND Internal Medicine
DX: I11.0 Hypertensive heart disease with heart failure (principal); I50.43 Acute on chronic combined systolic (congestive) and diastolic (congestive) heart failure; I27.2 Other secondary pulmonary hypertension; E11.42 Type 2 diabetes mellitus with diabetic polyneuropathy; I25.10 Atherosclerotic heart disease of native coronary artery without angina pectoris; Z96.653 Presence of artificial knee joint, bilateral; M17.12 Unilateral primary osteoarthritis, left knee; G47.33 Obstructive sleep apnea (adult) (pediatric); I48.2 Chronic atrial fibrillation; E66.01 Morbid (severe) obesity due to excess calories; D64.9 Anemia, unspecified; E78.00 Pure hypercholesterolemia, unspecified; N40.0 Benign prostatic hyperplasia without lower urinary tract symptoms; R59.0 Localized enlarged lymph nodes; I48.0 Paroxysmal atrial fibrillation; I08.1 Rheumatic disorders of both mitral and tricuspid valves; I42.9 Cardiomyopathy, unspecified; Z95.1 Presence of aortocoronary bypass graft; Z95.5 Presence of coronary angioplasty implant and graft; Z68.36 Body mass index [BMI] 36.0-36.9, adult; Z79.82 Long term (current) use of aspirin; Z79.01 Long term (current) use of anticoagulants; Z79.84 Long term (current) use of oral hypoglycemic drugs; Z87.891 Personal history of nicotine dependence; Z85.820 Personal history of malignant melanoma of skin
CPT/HCPCS: 36415; 71010; 74176; 78472; 80048; 80053; 80061; 82550; 82948; 83036; 83615; 83735; 83880; 84100; 84443; 84484; 85025; 85610; 85730; 87040; 93005; 93306; 93970; 96374; 99285; G0378; J0696; J1940

== ENCOUNTER 2018-04-04 09:27 | Day surgery (SDC) | payer MEDICARE, BC ==
[2017-07-01 13:41] VITALS: BMI 35.5
[2018-04-04] MEDS ORDERED: Propofol 10 mg/ml Inj (20 ML) ONE (10:39)
[2018-04-04] MEDS ORDERED: Etomidate 20 mg/10ml Inj IV ONE (10:39)
[2018-04-04] MEDS ORDERED: Midazolam 2 MG/2 ML VIAL ONE (10:45)
[2018-04-04] MEDS ORDERED: ePHEDrine 50 mg/ml Inj ONE (10:53)
[2018-04-04] MEDS ORDERED: Sodium Chloride 0.9% 1,000 ML IV SCH (11:15)
[2018-04-04 12:11] VITALS: BP 145/66; PULSE 53; RESP 16; TEMP 97.5; O2SAT 100
== END 2018-04-04 12:50 | disposition home or self-care (01) ==
LOC: ENDO 09:27
PROVIDERS: ATTEND Internal Medicine Gastroenterology
DX: Z12.11 Encounter for screening for malignant neoplasm of colon (principal); Z80.0 Family history of malignant neoplasm of digestive organs; D12.4 Benign neoplasm of descending colon; K57.30 Diverticulosis of large intestine without perforation or abscess without bleeding; K64.8 Other hemorrhoids; E11.9 Type 2 diabetes mellitus without complications; I25.10 Atherosclerotic heart disease of native coronary artery without angina pectoris
CPT/HCPCS: 45380; 82948; 88305; J2250; J2704; J3010; J7030

== ENCOUNTER 2018-06-20 14:25 | Inpatient (IN) | payer MEDICARE, BC ==
[2018-06-20 14:44] VITALS: BMI 36.3
[2018-06-20] MEDS ORDERED: Sodium Chloride 0.9% 1,000 ML IV STA ×2 (14:56→17:48)
[2018-06-20] MEDS ORDERED: Morphine 2 mg/ml ISec IVP STA (15:26)
--- NOTE | 2018-06-20 15:30 | ED PDOC ---
Arrival/HPI - General Chief Complaint: Abdominal Pain Historian: Patient - History of Present Illness Narrative History of Present Illness (Text): 06/20/18 14:56 Isreal Borjas is a 72 year old male, with a past medical history of CAD with multiple PCIs, hypertension, diabetes,dyslipidemia, and endoscopy (04/06/[address] Bills, colonic polyps removed x 2), who presents to the emergency department complaining of constant abdominal pain since 4-6 hours ago. Patient informs noticing sharp midline lower abdominal pain after stress test per Dr. Aponte. Patient notes nausea but denies vomiting or loose stools. Patient's abdominal pain resolved upon arrival to the ED. Patient informs last bowel movement earlier today. Patient denies taking medications for pain. Patient denies any syncopal episodes, chest pain, shortness of breath, constipation, fevers, chills, headache, dizziness, dysuria, hematuria, or any other complaint. Time/Duration: 4-6 hours Symptom Onset: Sudden Symptom Course: Resolved Quality: Stabbing ("sharp") Past Medical History - Provider Review Nursing Documentation Reviewed: Yes Primary Care Provider: Vance Cruz - Infectious Disease Hx of Infectious Diseases: None - Tetanus Immunization Tetanus Immunization: Unknown - Cardiac Hx Hypertension: Yes Hx Pacemaker: No Other/Comment: open heart surgery x 2 - Pulmonary Hx Respiratory Disorders: Yes Hx Bronchitis: Yes - HEENT Hx HEENT Disorder: No (WEARS RX GLASSES) - Endocrine/Metabolic Hx Diabetes Mellitus Type 2: Yes - Hematological/Oncological Hx Blood Transfusions: No Hx Blood Transfusion Reaction: No - Integumentary Other/Comment: melanoma removed form upper back 5 yr ago - Musculoskeletal/Rheumatological Hx Musculoskeletal Disorders: Yes (BILATERAL KNEE REPLACEMENTS) - Gastrointestinal Hx Gastrointestinal Disorders: No - Genitourinary/Gynecological Hx Genitourinary Disorders: No Hx Reproductive Disorders: Yes (BPH) - Psychiatric Hx Emotional Abuse: No Hx Physical Abuse: No Hx Substance Use: No - Surgical History Hx Open Heart Surgery: Yes - Anesthesia Hx Anesthesia: Yes Hx Anesthesia Reactions: No Hx Malignant Hyperthermia: No - Suicidal Assessment Feels Threatened In Home Enviroment: No Family/Social History - Physician Review Nursing Documentation Reviewed: Yes Family/Social History: Unknown Family HX Smoking Status: Former Smoker Hx Alcohol Use: Yes (4-5X PER WEEK) Frequency of alcohol use: Socially Hx Substance Use: No Allergies/Home Meds Allergies/Adverse Reactions: Allergies No Known Allergies Allergy (Verified 06/20/18 14:43) Home Medications: Home Meds Medication Instructions Recorded Confirmed Metformin HCl 1,000 mg PO BID 07/12/12 04/04/18 Atorvastatin [Lipitor] 40 mg PO DAILY 10/31/14 04/04/18 Losartan Potassium [Cozaar] 100 mg PO DAILY 10/31/14 04/04/18 Silodosin [Rapaflo] 4 mg PO HS 02/16/15 04/04/18 Aspirin [Aspirin Chewable] 81 mg PO DAILY 12/23/16 04/04/18 Glipizide [Glipizide ER] 10 mg PO DAILY 12/23/16 04/04/18 Magnesium Oxide [Mag-Ox] 400 mg PO DAILY 12/23/16 04/04/18 Rivaroxaban [Xarelto] 15 mg PO DAILY 12/23/16 04/04/18 Insulin Glargine,Hum.rec.anlog 30 unit SQ QAM 03/28/18 04/04/18 [Lantus Solostar] Potassium Chloride [K-Tab ER] 10 meq PO DAILY 03/28/18 04/04/18 Levothyroxine [Synthroid] 50 mcg PO DAILY 04/04/18 04/04/18 Review of Systems - Physician Review All systems were reviewed & negative as marked: Yes - Review of Systems Constitutional: absent: Fevers, Other (chills) Respiratory: absent: SOB Cardiovascular: absent: Chest Pain, Syncope Gastrointestinal: Abdominal Pain, Nausea. absent: Constipation, Diarrhea (loose stools), Vomiting Genitourinary Male: absent: Dysuria, Hematuria Neurological: absent: Headache, Dizziness Physical Exam Vital Signs Reviewed: Yes Vital Signs Pulse Resp BP Pulse Ox 06/20/18 14:45 65 18 185/84 H 97 Blood Pressure: Normal Pulse: Regular Respiratory Rate: Normal Appearance: Positive for: Well-Appearing, Non-Toxic, Comfortable Pain Distress: None Mental Status: Positive for: Alert and Oriented X 3 - Systems Exam Head: Present: Atraumatic, Normocephalic Pupils: Present: PERRL Extroacular Muscles: Present: EOMI Conjunctiva: Present: Normal Mouth: Present: Moist Mucous Membranes Neck: Present: Normal Range of Motion Respiratory/Chest: Present: Clear to Auscultation, Good Air Exchange. No: Respiratory Distress, Accessory Muscle Use, Wheezes, Rhonchi Cardiovascular: Present: Regular Rate and Rhythm, Normal S1, S2. No: Murmurs, Rub, Gallop Abdomen: Present: Tenderness (periumbilical region), Distention, Normal Bowel Sounds. No: Peritoneal Signs, Rebound, Guarding Back: Present: Normal Inspection Upper Extremity: Present: Normal Inspection. No: Cyanosis, Edema Lower Extremity: Present: Normal Inspection. No: Edema Neurological: Present: GCS=15, CN II-XII Intact, Speech Normal Skin: Present: Warm, Dry, Normal Color. No: Rashes Psychiatric: Present: Alert, Oriented x 3, Normal Insight, Normal Concentration Medical Decision Making ED Course and Treatment: 06/20/18 14:56 Impression: 72 year old male, with a past medical history of CAD with multiple PCIs, hypertension, diabetes,dyslipidemia, and endoscopy (04/06/[address] Bills, colonic polyps removed x 2), who presents to the emergency department complaining of constant abdominal pain since 4-6 hours ago Plan: -- VBG -- CT A/P w/ IV Contrast -- EKG -- Morphine -- Reglan -- IV Fluids -- Reassess and disposition Prior Visits: Notes and results from previous visits were reviewed. Progress Notes: 06/20/18 18:43 Labs reviewed with mild leukocytosis of 11.3 and elevated lipase of 17,[address] a/p reveals distended gallbladder with stones, but no evidence of cholecystitis. Call placed to Dr. Cruz(PCP). - Lab Interpretations Lab Results: 06/20/18 15:24 06/20/18 15:24 Lab Results 06/20/18 17:24: Urine Color Yellow, Urine Appearance Clear, Urine pH 6.5, Ur Specific [place] 1.010, Urine Protein Negative, Urine Glucose (UA) Negative, Urine Ketones Negative, Urine Blood Negative, Urine Nitrate Negative, Urine Bilirubin Negative, Urine Urobilinogen 0.2, Ur Leukocyte Esterase Negative 06/20/18 15:24: Sodium 140, Chloride 103, Potassium 4.5, Carbon Dioxide 22, Anion Gap 20, BUN 27 H, Creatinine 2.0 H, Est GFR ( Amer) 40, Est GFR (Non-Af Amer) 33, Random Glucose 134 H, Calcium 10.0, Magnesium 1.8, Total Bilirubin 2.8 H, AST 98 H, ALT 63 H, Alkaline Phosphatase 279 H, Total Protein 8.5 H, Albumin 4.8, Globulin 3.7, Albumin/Globulin Ratio 1.3, Lipase 55039 H 06/20/18 15:24: PT 30.7 H, INR 2.77, APTT 42.2 H 06/20/18 15:24: WBC 11.3 H, RBC 4.25, Hgb 13.2 L, Hct 41.9 L, MCV 98.6, MCH 31.1, MCHC 31.5, RDW 15.8 H, Plt Count 181, MPV 11.5 H, Neut % (Auto) 77.4 H, Lymph % (Auto) 15.0 L, [place] % (Auto) 6.3 H, Eos % (Auto) 1.1 L, Baso % (Auto) 0.2, Lymph # (Auto) 1.7, [place] # (Auto) 0.7 H, Eos # (Auto) 0.1, Baso # (Auto) 0.02, Absolute Neuts (auto) 8.72 H 06/20/18 04:51: pO2 17 L, VBG pH 7.35, VBG pCO2 48.0, VBG HCO3 26.5, VBG Total CO2 28.0, VBG O2 Sat (Calc) 14.5 L, VBG Base Excess 0.3, VBG Potassium 4.6, Sodium 138.0, Chloride 104.0, Glucose 100, Lactate 2.6 H, FiO2 21.0, Crit Value Called To kathia Velázquez md, Crit Value Called By Thania magana md, Blood Gas Notified Time 1700, Venous Blood Potassium 4.6 I have reviewed the lab results: Yes - RAD Interpretation Narrative RAD Interpretations (Text): 06/20/18 18:40 06/20/2018 PROCEDURE: CT Abdomen and Pelvis with contrast FINDINGS: LOWER THORAX: Unremarkable. LIVER: Unremarkable. No gross lesion or ductal dilatation. GALLBLADDER AND BILE DUCTS: Distended gallbladder. Cholelithiasis without CT evidence of acute cholecystitis. PANCREAS: Unremarkable. No gross lesion or ductal dilatation. SPLEEN: Unremarkable. ADRENALS: Unremarkable. No mass. KIDNEYS AND URETERS: Unremarkable. No hydronephrosis. No solid mass. VASCULATURE: Atherosclerotic calcification and mural plaque present. Findings are seen throughout the aorta which is non aneurysmal. BOWEL: Unremarkable. No obstruction. No gross mural thickening. APPENDIX: A normal appendix is visualized in it's entirety. PERITONEUM: Unremarkable. No free fluid. No free air. LYMPH NODES: Unremarkable. No enlarged lymph nodes. BLADDER: Unremarkable. REPRODUCTIVE: Unremarkable. BONES: No acute fracture. Diffuse osteopenia. Multilevel degenerative change. OTHER FINDINGS: None. IMPRESSION: Distended gallbladder. Cholelithiasis without CT evidence of acute cholecystitis. No significant interval change compared to the prior examination(s). Radiology Orders: 06/20/18 15:12 ABDOMEN & PELVIS [ABD & PELVIS IV CONTRAST ONLY] [CT] Stat - Medication Orders Current Medication Orders: Sodium Chloride (Sodium Chloride 0.9%) 1,000 mls @ 1,000 mls/hr IV .Q1H STA Stop: 06/20/18 15:55 Metoclopramide HCl (Reglan) 10 mg IVP STAT STA Stop: 06/20/18 15:27 - Scribe Statement The provider has reviewed the documentation as recorded by the Scribmahnaz Manriquez All medical record entries made by the Scribe were at my direction and personally dictated by me. I have reviewed the chart and agree that the record accurately reflects my personal performance of the history, physical exam, medical decision making, and the department course for this patient. I have also personally directed, reviewed, and agree with the discharge instructions and disposition. Disposition/Present on Arrival - Present on Arrival Any Indicators Present on Arrival: No History of DVT/PE: No History of Uncontrolled Diabetes: No Urinary Catheter: No History of Decub. Ulcer: No History Surgical Site Infection Following: None - Disposition Have Diagnosis and Disposition been Completed?: Yes Diagnosis: Pancreatitis Disposition: HOSPITALIZED Patient Problems: Current Active Problems Problem Status Onset Pancreatitis Acute Referrals: PCP,NO [Primary Care Provider] - Follow up with primary Forms: [employer] (L[place]anese)
[2018-06-20 15:33] LABS: BASO # 0.02 K/mm3 (0.0-2.0); BASO % 0.2 % (0.0-3.0); EOS # 0.1 (0.0-0.7); EOS % 1.1 % (1.5-5.0); HEMOGLOBIN 13.2 g/dL (14.0-18.0); LYMPH # 1.7 (1.2-3.4); MEAN CELL VOLUME 98.6 fl (80.0-105.0); MEAN CORPUSCULAR HEMOGLOBIN 31.1 pg (25.0-35.0); MEAN CORPUSCULAR HGB CONC 31.5 g/dl (31.0-37.0); MEAN PLATELET VOLUME 11.5 fl (7.0-11.0); MONO # 0.7 (0.1-0.6); MONO % 6.3 % (1.0-6.0); RBC 4.25 10^6/uL (3.5-6.1); RED CELL DISTRIBUTION WIDTH 15.8 % (11.5-14.5); WHITE BLOOD COUNT 11.3 10^3/uL (4.5-11.0)
[2018-06-20 15:41] LABS: INR 2.77; PARTIAL THROMBOPLASTIN TIME 42.2 Seconds (26.9-38.3); PROTHROMBIN TIME 30.7 SECONDS (9.4-12.5)
[2018-06-20 15:45] LABS: ALB/GLOB RATIO 1.3 (1.1-1.8); ALBUMIN 4.8 g/dL (3.0-4.8)
[2018-06-20] MEDS ORDERED: Iodixanol 320 MG/ML 100 ML BOTTLE IV ONE (17:00)
[2018-06-20 17:01] LABS: VENOUS BLOOD GAS BASE EXCESS 0.3 mmol/L (0.0-2.0); VENOUS BLOOD GAS PO2 17 mm/Hg (30-55); VENOUS BLOOD PH 7.35 (7.32-7.43)
[2018-06-20 17:35] LABS: PH,URINE 6.5 (4.7-8.0); URINE BILIRUBIN NEGATIVE (NEGATIVE); URINE BLOOD NEGATIVE (NEGATIVE); URINE GLUCOSE (UA) NEGATIVE (NEGATIVE); URINE LEUKOCYTE ESTERASE NEGATIVE Leu/uL (NEGATIVE); URINE PROTEIN NEGATIVE mg/dL (<30 mg/dL); URINE UROBILINOGEN 0.2 E.U./dL (<1 E.U./dL)
[2018-06-20 17:36] LABS: URINE APPEARANCE CLEAR (CLEAR); URINE COLOR YELLOW (YELLOW)
--- NOTE | 2018-06-20 17:49 | CT ---
Date of service: 06/20/2018 PROCEDURE: CT Abdomen and Pelvis with contrast HISTORY: abdominal pain COMPARISON: 05/13/2016. CT abdomen and pelvis. TECHNIQUE: Intravenous contrast dose: 100 cc Visipaque 320. Radiation dose: Total exam DLP = 1102.31 mGy-cm. This CT exam was performed using one or more of the following dose reduction techniques: Automated exposure control, adjustment of the mA and/or kV according to patient size, and/or use of iterative reconstruction technique. FINDINGS: LOWER THORAX: Unremarkable. LIVER: Unremarkable. No gross lesion or ductal dilatation. GALLBLADDER AND BILE DUCTS: Distended gallbladder. Cholelithiasis without CT evidence of acute cholecystitis. PANCREAS: Unremarkable. No gross lesion or ductal dilatation. SPLEEN: Unremarkable. ADRENALS: Unremarkable. No mass. KIDNEYS AND URETERS: Unremarkable. No hydronephrosis. No solid mass. VASCULATURE: Atherosclerotic calcification and mural plaque present. Findings are seen throughout the aorta which is non aneurysmal. BOWEL: Unremarkable. No obstruction. No gross mural thickening. APPENDIX: A normal appendix is visualized in it's entirety. PERITONEUM: Unremarkable. No free fluid. No free air. LYMPH NODES: Unremarkable. No enlarged lymph nodes. BLADDER: Unremarkable. REPRODUCTIVE: Unremarkable. BONES: No acute fracture. Diffuse osteopenia. Multilevel degenerative change. OTHER FINDINGS: None. IMPRESSION: Distended gallbladder. Cholelithiasis without CT evidence of acute cholecystitis. No significant interval change compared to the prior examination(s).
[2018-06-20 20:48] LABS: VENOUS BLOOD GAS BASE EXCESS 0.5 mmol/L (0.0-2.0); VENOUS BLOOD GAS PO2 30 mm/Hg (30-55)
--- NOTE | 2018-06-20 23:25 | CP.PCM.HP ---
<Neal Thakur - Last Filed: 06/21/18 04:33> History of Present Illness - History of Present Illness History of Present Illness: HISTORY & PHYSICAL NOTE FOR HOSPITALIST SERVICE Neal Thakur PGY1 72 y/o M with PMH of Afib on xarelto/amiodarone/metoprolol, HFrEF (outpatient echo yesterday), DM2, HTN, HLD hypothyroidism, hemorrhoids, diverticulosis presented to ED with complaints of diffuse abdominal pain that started about 1 day ago in the am after returning from an outpatient echocardiogram with Dr. Aponte. Pt reports pain was diffuse, dull, non-radiating, non associated with food, not alleviated/aggravated by anything. He hasn't ate anything since yesterday morning d/t abdominal pain. He reports he had bowel movement yesterday but hasn't passed gas today. He reports associated clear/white dry heaving and fatigue however denies fevers, chills, headache, dizziness, chest pain, palpitations, shortness of breath, constipation, diarrhea, dysuria, hematuria. He reports his abdominal pain had essentially resolved while he was in the ED and received IV fluids PMH: Afib on xarelto/amiodarone/metoprolol, HFrEF (outpatient echo yesterday), DM2, HTN, HLD hypothyroidism, hemorrhoids, diverticulosis, All: NKDA PSH: B/l TKR (2014&2016) SH: Denies current tobacco use, smoked 2-3 pack/day x 10 years (started 14 y/o), Drink ~2shots whiskey every other day. Denies illicit drug use. Reports eating "everything" specifically enjoys mac&cheese Hosp: Denies recent hospitalizations elsewhere FH: Mother: (88 y/o), Father: (38 y/o) [place], Brother 53 y/o (kidney dz), Sister, brain ca Meds: Meds reconciled & reviewed in MAR, pt confirmed PMD: Dr. Cruz Pharmacy: Alexandra Li ([facility]), brought med list to ED and inserted to MAR by nursing staff Present on Admission - Present on Admission Any Indicators Present on Admission: No Review of Systems - Review of Systems Review of Systems: per HPI Past Patient History - Infectious Disease Hx of Infectious Diseases: None - Tetanus Immunizations Tetanus Immunization: Unknown - Past Medical History & Family History Past Medical History?: Yes - Past Social History Smoking Status: Former Smoker - CARDIAC Hx Angina: Yes Hx Cardia Arrhythmia: Yes Hx Hypercholesterolemia: Yes Hx Hypertension: Yes Other/Comment: CABG X2, PTCA - PULMONARY Hx Bronchitis: Yes Hx Pneumonia: Yes - HEENT Hx HEENT Problems: No (WEARS RX GLASSES) - ENDOCRINE/METABOLIC Hx Diabetes Mellitus Type 2: Yes - HEMATOLOGICAL/ONCOLOGICAL Hx Cancer: Yes (SKIN, SURGICAL INTERVENTION) - INTEGUMENTARY Other/Comment: melanoma removed form upper back 5 yr ago - MUSCULOSKELETAL/RHEUMATOLOGICAL Hx Falls: No - GASTROINTESTINAL Hx Gastrointestinal Disorders: No - GENITOURINARY/GYNECOLOGICAL Hx Prostate Problems: Yes (BPH) - PSYCHIATRIC Hx Substance Use: No - SURGICAL HISTORY Hx Surgeries: Yes Hx Cardiac Catheterization: Yes Hx Coronary Stent: Yes Hx Joint Replacement: Yes (B/L KNEE REPLACEMENTS) Hx Open Heart Surgery: Yes - ANESTHESIA Hx Anesthesia: Yes Hx Anesthesia Reactions: No Hx Malignant Hyperthermia: No Meds Allergies/Adverse Reactions: Allergies Allergy/AdvReac Type Severity Reaction Status Date / Time No Known Allergies Allergy Verified 06/20/18 14:43 Physical Exam - Constitutional Appears: Well, Non-toxic, No Acute Distress - Head Exam Head Exam: NORMAL INSPECTION, NORMOCEPHALIC - Eye Exam Eye Exam: EOMI, Normal appearance - ENT Exam ENT Exam: Mucous Membranes Moist - Neck Exam Neck exam: Positive for: Normal Inspection - Respiratory Exam Respiratory Exam: Clear to Auscultation Bilateral, NORMAL BREATHING PATTERN - Cardiovascular Exam Cardiovascular Exam: REGULAR RHYTHM, +S1, +S2 - GI/Abdominal Exam GI & Abdominal Exam: Soft, Tenderness (mildly tender in epigastric region). absent: Organomegaly - Extremities Exam Extremities exam: Positive for: normal inspection. Negative for: calf tenderness - Back Exam Back exam: NORMAL INSPECTION - Neurological Exam Neurological exam: Alert, Oriented x3 - Psychiatric Exam Psychiatric exam: Normal Affect, Normal Mood - Skin Skin Exam: Dry, Intact, Warm Results - Vital Signs Recent Vital Signs: Last Vital Signs Temp 98.3 F 06/20/18 15:30 Pulse 84 06/20/18 20:17 Resp 18 06/20/18 22:01 BP 148/88 06/20/18 20:17 Pulse Ox 97 06/20/18 20:17 - Labs Result Diagrams: 06/20/18 15:24 06/20/18 15:24 Labs: Laboratory Results - last 24 hr 06/20/18 06/20/18 06/20/18 15:24 15:24 15:24 WBC 11.3 H RBC 4.25 Hgb 13.2 L Hct 41.9 L MCV 98.6 MCH 31.1 MCHC 31.5 RDW 15.8 H Plt Count 181 MPV 11.5 H Neut % (Auto) 77.4 H Lymph % (Auto) 15.0 L [place] % (Auto) 6.3 H Eos % (Auto) 1.1 L Baso % (Auto) 0.2 Lymph # (Auto) 1.7 [place] # (Auto) 0.7 H Eos # (Auto) 0.1 Baso # (Auto) 0.02 Absolute Neuts (auto) 8.72 H PT 30.7 H INR 2.77 APTT 42.2 H pO2 VBG pH VBG pCO2 VBG HCO3 VBG Total CO2 VBG O2 Sat (Calc) VBG Base Excess VBG Potassium Glucose Lactate FiO2 Crit Value Called To Crit Value Called By Blood Gas Notified Time Sodium 140 Potassium 4.5 Chloride 103 Carbon Dioxide 22 Anion Gap 20 BUN 27 H Creatinine 2.0 H Est GFR ( Amer) 40 Est GFR (Non-Af Amer) 33 POC Glucose (mg/dL) Random Glucose 134 H Calcium 10.0 Magnesium 1.8 Total Bilirubin 2.8 H AST 98 H ALT 63 H Alkaline Phosphatase 279 H Total Protein 8.5 H Albumin 4.8 Globulin 3.7 Albumin/Globulin Ratio 1.3 Lipase 19333 H Venous Blood Potassium Urine Color Urine Appearance Urine pH Ur Specific [place] Urine Protein Urine Glucose (UA) Urine Ketones Urine Blood Urine Nitrate Urine Bilirubin Urine Urobilinogen Ur Leukocyte Esterase 06/20/18 06/20/18 06/20/18 16:51 17:24 20:40 WBC RBC Hgb Hct MCV MCH MCHC RDW Plt Count MPV Neut % (Auto) Lymph % (Auto) [place] % (Auto) Eos % (Auto) Baso % (Auto) Lymph # (Auto) [place] # (Auto) Eos # (Auto) Baso # (Auto) Absolute Neuts (auto) PT INR APTT pO2 17 L 30 VBG pH 7.35 7.40 VBG pCO2 48.0 41.0 VBG HCO3 26.5 25.4 VBG Total CO2 28.0 26.7 VBG O2 Sat (Calc) 14.5 L 53.8 VBG Base Excess 0.3 0.5 VBG Potassium 4.6 4.2 Glucose 100 69 L Lactate 2.6 H 1.4 FiO2 21.0 21.0 Crit Value Called To kathia Velázquez md Crit Value Called By Thania magana md Blood Gas Notified Time 1700 Sodium 138.0 136.0 Potassium Chloride 104.0 107.0 Carbon Dioxide Anion Gap BUN Creatinine Est GFR ( Amer) Est GFR (Non-Af Amer) POC Glucose (mg/dL) Random Glucose Calcium Magnesium Total Bilirubin AST ALT Alkaline Phosphatase Total Protein Albumin Globulin Albumin/Globulin Ratio Lipase Venous Blood Potassium 4.6 4.2 Urine Color Yellow Urine Appearance Clear Urine pH 6.5 Ur Specific [place] 1.010 Urine Protein Negative Urine Glucose (UA) Negative Urine Ketones Negative Urine Blood Negative Urine Nitrate Negative Urine Bilirubin Negative Urine Urobilinogen 0.2 Ur Leukocyte Esterase Negative 06/20/18 21:50 WBC RBC Hgb Hct MCV MCH MCHC RDW Plt Count MPV Neut % (Auto) Lymph % (Auto) [place] % (Auto) Eos % (Auto) Baso % (Auto) Lymph # (Auto) [place] # (Auto) Eos # (Auto) Baso # (Auto) Absolute Neuts (auto) PT INR APTT pO2 VBG pH VBG pCO2 VBG HCO3 VBG Total CO2 VBG O2 Sat (Calc) VBG Base Excess VBG Potassium Glucose Lactate FiO2 Crit Value Called To Crit Value Called By Blood Gas Notified Time Sodium Potassium Chloride Carbon Dioxide Anion Gap BUN Creatinine Est GFR ( Amer) Est GFR (Non-Af Amer) POC Glucose (mg/dL) 99 Random Glucose Calcium Magnesium Total Bilirubin AST ALT Alkaline Phosphatase Total Protein Albumin Globulin Albumin/Globulin Ratio Lipase Venous Blood Potassium Urine Color Urine Appearance Urine pH Ur Specific [place] Urine Protein Urine Glucose (UA) Urine Ketones Urine Blood Urine Nitrate Urine Bilirubin Urine Urobilinogen Ur Leukocyte Esterase Assessment & Plan - Assessment and Plan (Free Text) Assessment: 72 y/o M with PMH Afib on xarelto/amiodarone/metoprolol, HFrEF (outpatient echo yesterday), DM2, HTN, HLD hypothyroidism, hemorrhoids, diverticulosis admitted for gallstone pancreatitis Plan: Gallstone Pancreatitis CT A/P 06/20/18: Distended gallbladder. Cholelithiasis without CT evidence of acute cholecystitis. Lipase 06145, AST/ALT/Alk Phos: 98/63/279 Keep pt NPO, advance as tolerated received 2L IVF bolus in ED, continue 1L LR bolus followed by maintenance IVF Morphine prn pain, zofran prn trend amylase/lipase GI consulted: Dr. Bills, appreciate recs CAD s/p CABG continue ASA, statin, b-ava Afib on coumadin Rate controlled continue amiodarone, metoprolol, xarelto HFrEF continue home lasix Per pt, outpatient echocardiogram performed yesterday with Dr. Aponte HTN continue home losartan, metoprolol HLD continue home atorvastatin lipid panel pending DM2 Hold metformin continue glipizide, home insulin insulin sliding scale morning A1c pending BPH Hypothyroidism Continue home levothyroxine thyroid studies pending GI/DVT PPX: Case reviewed with attending physician, Dr. Kim Thakur PGY1 <Jose Luis Alvarez - Last Filed: 06/21/18 08:48> Results - Vital Signs Recent Vital Signs: Last Vital Signs Temp 98.3 F 06/20/18 15:30 Pulse 84 06/20/18 20:17 Resp 18 06/20/18 22:01 BP 148/88 06/20/18 20:17 Pulse Ox 97 06/20/18 20:17 - Labs Result Diagrams: 06/21/18 06:30 06/21/18 06:30 Labs: Laboratory Results - last 24 hr 06/20/18 06/20/18 06/20/18 15:24 15:24 15:24 WBC 11.3 H RBC 4.25 Hgb 13.2 L Hct 41.9 L MCV 98.6 MCH 31.1 MCHC 31.5 RDW 15.8 H Plt Count 181 MPV 11.5 H Neut % (Auto) 77.4 H Lymph % (Auto) 15.0 L [place] % (Auto) 6.3 H Eos % (Auto) 1.1 L Baso % (Auto) 0.2 Lymph # (Auto) 1.7 [place] # (Auto) 0.7 H Eos # (Auto) 0.1 Baso # (Auto) 0.02 Absolute Neuts (auto) 8.72 H PT 30.7 H INR 2.77 APTT 42.2 H pO2 VBG pH VBG pCO2 VBG HCO3 VBG Total CO2 VBG O2 Sat (Calc) VBG Base Excess VBG Potassium Glucose Lactate FiO2 Crit Value Called To Crit Value Called By Blood Gas Notified Time Sodium 140 Potassium 4.5 Chloride 103 Carbon Dioxide 22 Anion Gap 20 BUN 27 H Creatinine 2.0 H Est GFR ( Amer) 40 Est GFR (Non-Af Amer) 33 POC Glucose (mg/dL) Random Glucose 134 H Calcium 10.0 Phosphorus Magnesium 1.8 Total Bilirubin 2.8 H AST 98 H ALT 63 H Alkaline Phosphatase 279 H Total Protein 8.5 H Albumin 4.8 Globulin 3.7 Albumin/Globulin Ratio 1.3 Triglycerides Cholesterol LDL Cholesterol Direct HDL Cholesterol Lipase 93015 H Free T4 TSH 3rd Generation Venous Blood Potassium Urine Color Urine Appearance Urine pH Ur Specific [place] Urine Protein Urine Glucose (UA) Urine Ketones Urine Blood Urine Nitrate Urine Bilirubin Urine Urobilinogen Ur Leukocyte Esterase Alcohol, Quantitative 06/20/18 06/20/18 06/20/18 16:51 17:24 20:40 WBC RBC Hgb Hct MCV MCH MCHC RDW Plt Count MPV Neut % (Auto) Lymph % (Auto) [place] % (Auto) Eos % (Auto) Baso % (Auto) Lymph # (Auto) [place] # (Auto) Eos # (Auto) Baso # (Auto) Absolute Neuts (auto) PT INR APTT pO2 17 L 30 VBG pH 7.35 7.40 VBG pCO2 48.0 41.0 VBG HCO3 26.5 25.4 VBG Total CO2 28.0 26.7 VBG O2 Sat (Calc) 14.5 L 53.8 VBG Base Excess 0.3 0.5 VBG Potassium 4.6 4.2 Glucose 100 69 L Lactate 2.6 H 1.4 FiO2 21.0 21.0 Crit Value Called To kathia Velázquez md Crit Value Called By Thania magana md Blood Gas Notified Time 1700 Sodium 138.0 136.0 Potassium Chloride 104.0 107.0 Carbon Dioxide Anion Gap BUN Creatinine Est GFR ( Amer) Est GFR (Non-Af Amer) POC Glucose (mg/dL) Random Glucose Calcium Phosphorus Magnesium Total Bilirubin AST ALT Alkaline Phosphatase Total Protein Albumin Globulin Albumin/Globulin Ratio Triglycerides Cholesterol LDL Cholesterol Direct HDL Cholesterol Lipase Free T4 TSH 3rd Generation Venous Blood Potassium 4.6 4.2 Urine Color Yellow Urine Appearance Clear Urine pH 6.5 Ur Specific [place] 1.010 Urine Protein Negative Urine Glucose (UA) Negative Urine Ketones Negative Urine Blood Negative Urine Nitrate Negative Urine Bilirubin Negative Urine Urobilinogen 0.2 Ur Leukocyte Esterase Negative Alcohol, Quantitative 06/20/18 06/21/18 06/21/18 21:50 06:30 06:30 WBC 11.9 H RBC 3.59 Hgb 11.0 L D Hct 35.0 L MCV 97.5 MCH 30.6 MCHC 31.4 RDW 15.8 H Plt Count 149 MPV 11.7 H Neut % (Auto) 81.8 H Lymph % (Auto) 8.8 L [place] % (Auto) 9.0 H Eos % (Auto) 0.3 L Baso % (Auto) 0.1 Lymph # (Auto) 1.1 L [place] # (Auto) 1.1 H Eos # (Auto) 0.0 Baso # (Auto) 0.01 Absolute Neuts (auto) 9.71 H PT INR APTT pO2 VBG pH VBG pCO2 VBG HCO3 VBG Total CO2 VBG O2 Sat (Calc) VBG Base Excess VBG Potassium Glucose Lactate FiO2 Crit Value Called To Crit Value Called By Blood Gas Notified Time Sodium Potassium Chloride Carbon Dioxide Anion Gap BUN Creatinine Est GFR ( Amer) Est GFR (Non-Af Amer) POC Glucose (mg/dL) 99 Random Glucose Calcium Phosphorus Magnesium Total Bilirubin AST ALT Alkaline Phosphatase Total Protein Albumin Globulin Albumin/Globulin Ratio Triglycerides Cholesterol LDL Cholesterol Direct HDL Cholesterol Lipase Free T4 2.41 H TSH 3rd Generation 2.58 Venous Blood Potassium Urine Color Urine Appearance Urine pH Ur Specific [place] Urine Protein Urine Glucose (UA) Urine Ketones Urine Blood Urine Nitrate Urine Bilirubin Urine Urobilinogen Ur Leukocyte Esterase Alcohol, Quantitative 06/21/18 06/21/18 06/21/18 06:30 07:15 08:20 WBC RBC Hgb Hct MCV MCH MCHC RDW Plt Count MPV Neut % (Auto) Lymph % (Auto) [place] % (Auto) Eos % (Auto) Baso % (Auto) Lymph # (Auto) [place] # (Auto) Eos # (Auto) Baso # (Auto) Absolute Neuts (auto) PT INR APTT pO2 VBG pH VBG pCO2 VBG HCO3 VBG Total CO2 VBG O2 Sat (Calc) VBG Base Excess VBG Potassium Glucose Lactate FiO2 Crit Value Called To Crit Value Called By Blood Gas Notified Time Sodium 140 Potassium 4.3 Chloride 106 Carbon Dioxide 24 Anion Gap 14 BUN 24 H Creatinine 1.7 H Est GFR ( Amer) 48 Est GFR (Non-Af Amer) 40 POC Glucose (mg/dL) 57 L Random Glucose 51 L Calcium 8.8 Phosphorus 4.0 Magnesium Total Bilirubin 5.3 H AST 88 H ALT 69 H Alkaline Phosphatase 254 H Total Protein 6.9 Albumin 3.7 Globulin 3.2 Albumin/Globulin Ratio 1.1 Triglycerides 73 Cholesterol 100 L LDL Cholesterol Direct 49 HDL Cholesterol 33 Lipase 656 H Free T4 TSH 3rd Generation Venous Blood Potassium Urine Color Urine Appearance Urine pH Ur Specific [place] Urine Protein Urine Glucose (UA) Urine Ketones Urine Blood Urine Nitrate Urine Bilirubin Urine Urobilinogen Ur Leukocyte Esterase Alcohol, Quantitative < 10 06/21/18 08:32 WBC RBC Hgb Hct MCV MCH MCHC RDW Plt Count MPV Neut % (Auto) Lymph % (Auto) [place] % (Auto) Eos % (Auto) Baso % (Auto) Lymph # (Auto) [place] # (Auto) Eos # (Auto) Baso # (Auto) Absolute Neuts (auto) PT INR APTT pO2 VBG pH VBG pCO2 VBG HCO3 VBG Total CO2 VBG O2 Sat (Calc) VBG Base Excess VBG Potassium Glucose Lactate FiO2 Crit Value Called To Crit Value Called By Blood Gas Notified Time Sodium Potassium Chloride Carbon Dioxide Anion Gap BUN Creatinine Est GFR ( Amer) Est GFR (Non-Af Amer) POC Glucose (mg/dL) 84 Random Glucose Calcium Phosphorus Magnesium Total Bilirubin AST ALT Alkaline Phosphatase Total Protein Albumin Globulin Albumin/Globulin Ratio Triglycerides Cholesterol LDL Cholesterol Direct HDL Cholesterol Lipase Free T4 TSH 3rd Generation Venous Blood Potassium Urine Color Urine Appearance Urine pH Ur Specific [place] Urine Protein Urine Glucose (UA) Urine Ketones Urine Blood Urine Nitrate Urine Bilirubin Urine Urobilinogen Ur Leukocyte Esterase Alcohol, Quantitative Attending/Attestation - Attestation I have personally seen and examined this patient.: Yes I have fully participated in the care of the patient.: Yes I have reviewed all pertinent clinical information: Yes Notes (Text): 06/21/18 08:47 Patient was seen when he was in [facility]. Medical record was reviewed. Agree with history, physical examination, assessment and plan.
[2018-06-20] MEDS ORDERED: Morphine 2 mg/ml ISec IVP PRN (23:27)
[2018-06-20] MEDS ORDERED: Lactated Ringer's 1,000 ML IV SCH (23:30)
[2018-06-21] MEDS ORDERED: Lactated Ringer's 1,000 ML IV SCH (01:00)
[2018-06-21] MEDS: Levothyroxine 50 MCG TAB PO SCH (05:40)
[2018-06-21 07:10] LABS: BASO # 0.01 K/mm3 (0.0-2.0); BASO % 0.1 % (0.0-3.0); EOS % 0.3 % (1.5-5.0); LYMPH # 1.1 (1.2-3.4); LYMPH % 8.8 % (22.0-35.0); MEAN CELL VOLUME 97.5 fl (80.0-105.0); MEAN CORPUSCULAR HEMOGLOBIN 30.6 pg (25.0-35.0); MEAN CORPUSCULAR HGB CONC 31.4 g/dl (31.0-37.0); MEAN PLATELET VOLUME 11.7 fl (7.0-11.0); MONO # 1.1 (0.1-0.6); RBC 3.59 10^6/uL (3.5-6.1); RED CELL DISTRIBUTION WIDTH 15.8 % (11.5-14.5); WHITE BLOOD COUNT 11.9 10^3/uL (4.5-11.0)
--- NOTE | 2018-06-21 07:13 | CARD ---
APPROVED REPORT Date of service: 06/20/2018 EKG Measurement Heart [id number] <Conclusion> Atrial fibrillation Low voltage QRS Cannot rule out Anteroseptal infarct, age undetermined Abnormal ECG
[2018-06-21 07:25] LABS: ALB/GLOB RATIO 1.1 (1.1-1.8); ALBUMIN 3.7 g/dL (3.0-4.8); CALCIUM 8.8 mg/dL (8.4-10.5); FREE T4 2.41 ng/dL (0.78-2.19)
[2018-06-21] MEDS ORDERED: Dextrose 50% SYRINGE Inj (50 ml) IVP STA (07:27)
[2018-06-21] MEDS: Insulin Reg-LOW-Coverage SC SCH ×4 (08:46→22:00)
--- NOTE | 2018-06-21 09:09 | CP.PCM.CON ---
<KvngalfredoDamion zuniga D - Last Filed: 06/21/18 10:57> History of Present Illness - History of Present Illness History of Present Illness: SURGERY CONSULT NOTE DR. WU Reason: gallstone pancreatitis 72M presents with abdominal pain. Patient states pain started yesterday and is located in the epigastric and right upper quadrant region. The pain is associated with nausea, dry heaving. He states those symptoms have now resolved. At home he began feeling fatigues and that is why he came to hospital. he states he has never had this kind of pain before. Denies any change in bowel function. PMH: Afib, CAD, DM, HTN, HLD, Hypothyroid, hemorrhoids, diverticulosis PSH: B/L TKR, Open heart surgery*2 bypass Social: Denies current tobacco use, smoked 2-3 pack/day x 10 years (started 14 y/o), Drink ~2shots whiskey every other day. Denies illicit drug use. Allergies: NKDA Past Patient History - Infectious Disease Hx of Infectious Diseases: None - Tetanus Immunizations Tetanus Immunization: Unknown - Past Medical History & Family History Past Medical History?: Yes - Past Social History Smoking Status: Former Smoker - CARDIAC Hx Angina: Yes Hx Cardia Arrhythmia: Yes Hx Hypercholesterolemia: Yes Hx Hypertension: Yes Other/Comment: CABG X2, PTCA - PULMONARY Hx Bronchitis: Yes Hx Pneumonia: Yes - HEENT Hx HEENT Problems: No (WEARS RX GLASSES) - ENDOCRINE/METABOLIC Hx Diabetes Mellitus Type 2: Yes - HEMATOLOGICAL/ONCOLOGICAL Hx Cancer: Yes (SKIN, SURGICAL INTERVENTION) - INTEGUMENTARY Other/Comment: melanoma removed form upper back 5 yr ago - MUSCULOSKELETAL/RHEUMATOLOGICAL Hx Falls: No - GASTROINTESTINAL Hx Gastrointestinal Disorders: No - GENITOURINARY/GYNECOLOGICAL Hx Prostate Problems: Yes (BPH) - PSYCHIATRIC Hx Substance Use: No - SURGICAL HISTORY Hx Surgeries: Yes Hx Cardiac Catheterization: Yes Hx Coronary Stent: Yes Hx Joint Replacement: Yes (B/L KNEE REPLACEMENTS) Hx Open Heart Surgery: Yes - ANESTHESIA Hx Anesthesia: Yes Hx Anesthesia Reactions: No Hx Malignant Hyperthermia: No Meds Allergies/Adverse Reactions: Allergies Allergy/AdvReac Type Severity Reaction Status Date / Time No Known Allergies Allergy Verified 06/20/18 14:43 - Medications Medications: Current Medications Amiodarone HCl (Cordarone) 200 mg PO DAILY [facility] Aspirin (Aspirin Chewable) 81 mg PO DAILY [facility] Atorvastatin Calcium (Lipitor) 40 mg PO DAILY [facility] Dextrose (Dextrose 50% Inj) 0 ml IV STAT PRN; Protocol PRN Reason: Hypoglycemia Protocol Last Admin: 06/21/18 07:38 Dose: 50 ml Furosemide (Lasix) 40 mg PO 0800,1400 [facility] Lactated Ringer's (Lactated Ringer's) 1,000 mls @ 125 mls/hr IV .Q8H [facility] Last Admin: 06/21/18 01:16 Dose: 125 mls/hr Dextrose (Dextrose 5% In Water 1000 Ml) 1,000 mls @ 0 mls/hr IV .Q0M PRN; Protocol PRN Reason: Hypoglycemia Protocol Insulin Human Regular (Humulin R Low) 0 units SC ACHS [facility]; Protocol Levothyroxine Sodium (Synthroid) 50 mcg PO 0600 [facility] Last Admin: 06/21/18 05:40 Dose: Not Given Losartan Potassium (Cozaar) 100 mg PO DAILY [facility] Magnesium Oxide (Mag-Ox) 400 mg PO DAILY [facility] Metoprolol Tartrate (Lopressor) 50 mg PO BID [facility] Morphine Sulfate (Morphine) 2 mg IVP Q6H PRN PRN Reason: Pain, severe (8-10) Non-Formulary Medication (Silodosin [Rapaflo]) 4 mg PO HS [facility] Ondansetron HCl (Zofran Inj) 4 mg IVP Q6H PRN PRN Reason: Nausea/Vomiting Pantoprazole Sodium (Protonix Inj) 40 mg IVP DAILY [facility] Potassium Chloride (Klor-Con 10) 10 meq PO DAILY [facility] Rivaroxaban (Xarelto) 15 mg PO DAILY [facility]; Protocol Physical Exam - Constitutional Appears: Non-toxic, No Acute Distress - Eye Exam Eye Exam: EOMI - ENT Exam ENT Exam: Mucous Membranes Moist - Respiratory Exam Respiratory Exam: Clear to Auscultation Bilateral, NORMAL BREATHING PATTERN - Cardiovascular Exam Cardiovascular Exam: REGULAR RHYTHM, +S1, +S2 - GI/Abdominal Exam GI & Abdominal Exam: Soft, Tenderness (RUQ tenderness). absent: Distended, Firm, Guarding, Rebound, Rigid - Extremities Exam Extremities exam: Negative for: pedal edema, tenderness - Neurological Exam Neurological exam: Alert, Oriented x3 - Psychiatric Exam Psychiatric exam: Normal Affect, Normal Mood - Skin Skin Exam: Dry, Intact, Normal Color, Warm Results - Vital Signs Recent Vital Signs: Last Vital Signs Temp 98 F 06/21/18 08:53 Pulse 62 06/21/18 08:53 Resp 20 06/21/18 08:53 BP 125/51 L 06/21/18 08:53 Pulse Ox 93 L 06/21/18 08:53 - Labs Result Diagrams: 06/21/18 06:30 06/21/18 06:30 Labs: Laboratory Results - last 24 hr 06/20/18 06/20/18 06/20/18 15:24 15:24 15:24 WBC 11.3 H RBC 4.25 Hgb 13.2 L Hct 41.9 L MCV 98.6 MCH 31.1 MCHC 31.5 RDW 15.8 H Plt Count 181 MPV 11.5 H Neut % (Auto) 77.4 H Lymph % (Auto) 15.0 L [place] % (Auto) 6.3 H Eos % (Auto) 1.1 L Baso % (Auto) 0.2 Lymph # (Auto) 1.7 [place] # (Auto) 0.7 H Eos # (Auto) 0.1 Baso # (Auto) 0.02 Absolute Neuts (auto) 8.72 H PT 30.7 H INR 2.77 APTT 42.2 H pO2 VBG pH VBG pCO2 VBG HCO3 VBG Total CO2 VBG O2 Sat (Calc) VBG Base Excess VBG Potassium Glucose Lactate FiO2 Crit Value Called To Crit Value Called By Blood Gas Notified Time Sodium 140 Potassium 4.5 Chloride 103 Carbon Dioxide 22 Anion Gap 20 BUN 27 H Creatinine 2.0 H Est GFR ( Amer) 40 Est GFR (Non-Af Amer) 33 POC Glucose (mg/dL) Random Glucose 134 H Calcium 10.0 Phosphorus Magnesium 1.8 Total Bilirubin 2.8 H AST 98 H ALT 63 H Alkaline Phosphatase 279 H Total Protein 8.5 H Albumin 4.8 Globulin 3.7 Albumin/Globulin Ratio 1.3 Triglycerides Cholesterol LDL Cholesterol Direct HDL Cholesterol Lipase 42015 H Free T4 TSH 3rd Generation Venous Blood Potassium Urine Color Urine Appearance Urine pH Ur Specific [place] Urine Protein Urine Glucose (UA) Urine Ketones Urine Blood Urine Nitrate Urine Bilirubin Urine Urobilinogen Ur Leukocyte Esterase Alcohol, Quantitative 06/20/18 06/20/18 06/20/18 16:51 17:24 20:40 WBC RBC Hgb Hct MCV MCH MCHC RDW Plt Count MPV Neut % (Auto) Lymph % (Auto) [place] % (Auto) Eos % (Auto) Baso % (Auto) Lymph # (Auto) [place] # (Auto) Eos # (Auto) Baso # (Auto) Absolute Neuts (auto) PT INR APTT pO2 17 L 30 VBG pH 7.35 7.40 VBG pCO2 48.0 41.0 VBG HCO3 26.5 25.4 VBG Total CO2 28.0 26.7 VBG O2 Sat (Calc) 14.5 L 53.8 VBG Base Excess 0.3 0.5 VBG Potassium 4.6 4.2 Glucose 100 69 L Lactate 2.6 H 1.4 FiO2 21.0 21.0 Crit Value Called To kathia Velázquez md Crit Value Called By Thania magana md Blood Gas Notified Time 1700 Sodium 138.0 136.0 Potassium Chloride 104.0 107.0 Carbon Dioxide Anion Gap BUN Creatinine Est GFR ( Amer) Est GFR (Non-Af Amer) POC Glucose (mg/dL) Random Glucose Calcium Phosphorus Magnesium Total Bilirubin AST ALT Alkaline Phosphatase Total Protein Albumin Globulin Albumin/Globulin Ratio Triglycerides Cholesterol LDL Cholesterol Direct HDL Cholesterol Lipase Free T4 TSH 3rd Generation Venous Blood Potassium 4.6 4.2 Urine Color Yellow Urine Appearance Clear Urine pH 6.5 Ur Specific [place] 1.010 Urine Protein Negative Urine Glucose (UA) Negative Urine Ketones Negative Urine Blood Negative Urine Nitrate Negative Urine Bilirubin Negative Urine Urobilinogen 0.2 Ur Leukocyte Esterase Negative Alcohol, Quantitative 06/20/18 06/21/18 06/21/18 21:50 06:30 06:30 WBC 11.9 H RBC 3.59 Hgb 11.0 L D Hct 35.0 L MCV 97.5 MCH 30.6 MCHC 31.4 RDW 15.8 H Plt Count 149 MPV 11.7 H Neut % (Auto) 81.8 H Lymph % (Auto) 8.8 L [place] % (Auto) 9.0 H Eos % (Auto) 0.3 L Baso % (Auto) 0.1 Lymph # (Auto) 1.1 L [place] # (Auto) 1.1 H Eos # (Auto) 0.0 Baso # (Auto) 0.01 Absolute Neuts (auto) 9.71 H PT INR APTT pO2 VBG pH VBG pCO2 VBG HCO3 VBG Total CO2 VBG O2 Sat (Calc) VBG Base Excess VBG Potassium Glucose Lactate FiO2 Crit Value Called To Crit Value Called By Blood Gas Notified Time Sodium Potassium Chloride Carbon Dioxide Anion Gap BUN Creatinine Est GFR ( Amer) Est GFR (Non-Af Amer) POC Glucose (mg/dL) 99 Random Glucose Calcium Phosphorus Magnesium Total Bilirubin AST ALT Alkaline Phosphatase Total Protein Albumin Globulin Albumin/Globulin Ratio Triglycerides Cholesterol LDL Cholesterol Direct HDL Cholesterol Lipase Free T4 2.41 H TSH 3rd Generation 2.58 Venous Blood Potassium Urine Color Urine Appearance Urine pH Ur Specific [place] Urine Protein Urine Glucose (UA) Urine Ketones Urine Blood Urine Nitrate Urine Bilirubin Urine Urobilinogen Ur Leukocyte Esterase Alcohol, Quantitative 06/21/18 06/21/18 06/21/18 06:30 07:15 08:20 WBC RBC Hgb Hct MCV MCH MCHC RDW Plt Count MPV Neut % (Auto) Lymph % (Auto) [place] % (Auto) Eos % (Auto) Baso % (Auto) Lymph # (Auto) [place] # (Auto) Eos # (Auto) Baso # (Auto) Absolute Neuts (auto) PT INR APTT pO2 VBG pH VBG pCO2 VBG HCO3 VBG Total CO2 VBG O2 Sat (Calc) VBG Base Excess VBG Potassium Glucose Lactate FiO2 Crit Value Called To Crit Value Called By Blood Gas Notified Time Sodium 140 Potassium 4.3 Chloride 106 Carbon Dioxide 24 Anion Gap 14 BUN 24 H Creatinine 1.7 H Est GFR ( Amer) 48 Est GFR (Non-Af Amer) 40 POC Glucose (mg/dL) 57 L Random Glucose 51 L Calcium 8.8 Phosphorus 4.0 Magnesium Total Bilirubin 5.3 H AST 88 H ALT 69 H Alkaline Phosphatase 254 H Total Protein 6.9 Albumin 3.7 Globulin 3.2 Albumin/Globulin Ratio 1.1 Triglycerides 73 Cholesterol 100 L LDL Cholesterol Direct 49 HDL Cholesterol 33 Lipase 656 H Free T4 TSH 3rd Generation Venous Blood Potassium Urine Color Urine Appearance Urine pH Ur Specific [place] Urine Protein Urine Glucose (UA) Urine Ketones Urine Blood Urine Nitrate Urine Bilirubin Urine Urobilinogen Ur Leukocyte Esterase Alcohol, Quantitative < 10 06/21/18 08:32 WBC RBC Hgb Hct MCV MCH MCHC RDW Plt Count MPV Neut % (Auto) Lymph % (Auto) [place] % (Auto) Eos % (Auto) Baso % (Auto) Lymph # (Auto) [place] # (Auto) Eos # (Auto) Baso # (Auto) Absolute Neuts (auto) PT INR APTT pO2 VBG pH VBG pCO2 VBG HCO3 VBG Total CO2 VBG O2 Sat (Calc) VBG Base Excess VBG Potassium Glucose Lactate FiO2 Crit Value Called To Crit Value Called By Blood Gas Notified Time Sodium Potassium Chloride Carbon Dioxide Anion Gap BUN Creatinine Est GFR ( Amer) Est GFR (Non-Af Amer) POC Glucose (mg/dL) 84 Random Glucose Calcium Phosphorus Magnesium Total Bilirubin AST ALT Alkaline Phosphatase Total Protein Albumin Globulin Albumin/Globulin Ratio Triglycerides Cholesterol LDL Cholesterol Direct HDL Cholesterol Lipase Free T4 TSH 3rd Generation Venous Blood Potassium Urine Color Urine Appearance Urine pH Ur Specific [place] Urine Protein Urine Glucose (UA) Urine Ketones Urine Blood Urine Nitrate Urine Bilirubin Urine Urobilinogen Ur Leukocyte Esterase Alcohol, Quantitative Assessment & Plan - Assessment and Plan (Free Text) Assessment: 72M with an extensive cardiac history presents with Pancreatitis likely from gallbladder source CT: cholelithaiasis, distended gallbladder US: Cholelithiasis, [id number] Plan: - NPO - IVF - Pain control - Follow up ultrasound report - Patient will require MRCP, r/o choledocholithiasis - GI team is on board - Will continue to follow Further recs discuss with Dr. Dominik Gonzalez, PGY3 <Brad Wu - Last Filed: 06/26/18 20:40> Results - Vital Signs Recent Vital Signs: Last Vital Signs Temp 98.2 F 06/26/18 00:00 Pulse 72 06/26/18 10:00 Resp 20 06/26/18 00:00 BP 116/66 06/26/18 10:10 Pulse Ox 96 06/26/18 00:00 - Labs Result Diagrams: 06/26/18 07:00 06/26/18 07:00 Labs: Laboratory Results - last 24 hr 06/25/18 06/26/18 06/26/18 21:04 07:00 07:00 WBC 6.2 RBC 3.73 Hgb 11.5 L Hct 36.1 L MCV 96.8 MCH 30.8 MCHC 31.9 RDW 15.9 H Plt Count 170 MPV 11.5 H Neut % (Auto) 68.5 H Lymph % (Auto) 17.0 L [place] % (Auto) 9.5 H Eos % (Auto) 4.7 Baso % (Auto) 0.3 Lymph # (Auto) 1.1 L [place] # (Auto) 0.6 Eos # (Auto) 0.3 Baso # (Auto) 0.02 Absolute Neuts (auto) 4.27 Sodium 137 Potassium 3.7 Chloride 103 Carbon Dioxide 22 Anion Gap 15 BUN 21 Creatinine 1.7 H Est GFR ( Amer) 48 Est GFR (Non-Af Amer) 40 POC Glucose (mg/dL) 151 H Random Glucose 140 H Calcium 8.8 Total Bilirubin 4.1 H AST 45 ALT 41 Alkaline Phosphatase 377 H Total Protein 7.2 Albumin 3.6 Globulin 3.6 Albumin/Globulin Ratio 1.0 L 06/26/18 07:29 WBC RBC Hgb Hct MCV MCH MCHC RDW Plt Count MPV Neut % (Auto) Lymph % (Auto) [place] % (Auto) Eos % (Auto) Baso % (Auto) Lymph # (Auto) [place] # (Auto) Eos # (Auto) Baso # (Auto) Absolute Neuts (auto) Sodium Potassium Chloride Carbon Dioxide Anion Gap BUN Creatinine Est GFR ( Amer) Est GFR (Non-Af Amer) POC Glucose (mg/dL) 165 H Random Glucose Calcium Total Bilirubin AST ALT Alkaline Phosphatase Total Protein Albumin Globulin Albumin/Globulin Ratio Attending/Attestation - Attestation I have personally seen and examined this patient.: Yes I have fully participated in the care of the patient.: Yes I have reviewed all pertinent clinical information: Yes Notes (Text): Pt was seen and examined at bedside Agree with above note and assessment Pt with Upper abdominal pain and diarrhea Abdomen : Soft, tender in upper abdomen, Non distended Labs and Radiology reviewed Ass: GS Pancreatitis, Cholelithiasis Plan : IV antibiotics MRCP GI consult for ERCP NPO, IVF Plan d.w pt in detail Risk and benefit explained in detail.
[2018-06-21 09:32] LABS: BILIRUBIN,DIRECT 3.8 mg/dL (0.0-0.4)
--- NOTE | 2018-06-21 09:38 | RAD ---
Date of service: 06/21/2018 HISTORY: evaluation COMPARISON: 10/13/2017 TECHNIQUE: Chest PA and lateral views FINDINGS: LUNGS: No active pulmonary disease. PLEURA: No significant pleural effusion identified. No pneumothorax apparent. CARDIOVASCULAR: Aortic calcification Mild cardiomegaly no pulmonary vascular congestion. OSSEOUS STRUCTURES: Sternal wires VISUALIZED UPPER ABDOMEN: Normal. OTHER FINDINGS: None. IMPRESSION: No active disease.
[2018-06-21] MEDS ORDERED: GlipiZIDE 10 mg SR Tab PO SCH (10:00)
[2018-06-21] MEDS ORDERED: Insulin Detemir 100 units/ml Vial (Levemir) SC SCH (10:00)
--- NOTE | 2018-06-21 10:20 | US ---
Date of service: 06/21/2018 HISTORY: pancreatitis, transaminitis COMPARISON: None. TECHNIQUE: Sonographic evaluation of the right upper quadrant of the abdomen. FINDINGS: LIVER: Measures 19.6 cm in length. Patent portal and hepatic venous systems. Hepatopedal blood flow. Fatty infiltration manifest ultrasonographically as increased echogenicity of the liver parenchyma. No mass. No intrahepatic bile duct dilatation. GALLBLADDER: Cholelithiasis. Negative study for gallbladder wall thickening, pericholecystic fluid, sonographic Chaney's sign. Distended gall bladder COMMON BILE DUCT: Measures 6.3 mm. No stones. No dilatation. PANCREAS: Unremarkable as visualized. No mass. No ductal dilatation. RIGHT KIDNEY: Measures 5.3 x 10.8 cm in length. Normal echogenicity. No calculus, mass, or hydronephrosis. AORTA: No aneurysmal dilatation. IVC: Unremarkable. OTHER FINDINGS: None . IMPRESSION: Cholelithiasis. No sonographic evidence of acute cholecystitis.
[2018-06-21] MEDS ORDERED: Dextrose 50% SYRINGE Inj (50 ml) IVP ONE (11:13)
[2018-06-21] MEDS: Potassium Chloride 10 mEq ER Tab PO SCH (11:59)
[2018-06-21] MEDS: Magnesium Oxide 400 mg Tab UD PO SCH (11:59)
--- NOTE | 2018-06-21 12:11 | CP.PCM.PN ---
<Bharath Honeycutt - Last Filed: 06/21/18 12:06> Subjective - Date & Time of Evaluation Date of Evaluation: 06/21/18 Time of Evaluation: 12:06 - Subjective Subjective: Bharath Honeycutt, PGY-1, Internal Medicine Progress Note for Dr. Bravo Patient seen and evaluated at bedside. Patient had no acute overnight events. Patient reports significant improvement of abdominal pain. He currently denies nausea, vomiting, though he did have 9-10 episodes yesterday. He also denies constipation or diarrhea at this time. He denies fever, chills, chest pain, heart palpitations, shortness of breath, dysuria, and hematuria. 12-point ROS was unremarkable except for what was mentioned above. Objective - Vital Signs/Intake and Output Vital Signs (last 24 hours): Temp Pulse Resp BP Pulse Ox 98 F 62 20 125/51 L 93 L 06/21/18 08:53 06/21/18 08:53 06/21/18 08:53 06/21/18 12:01 06/21/18 08:53 - Medications Medications: Current Medications Amiodarone HCl (Cordarone) 200 mg PO DAILY [facility] Aspirin (Aspirin Chewable) 81 mg PO DAILY [facility] Last Admin: 06/21/18 12:00 Dose: 81 mg Atorvastatin Calcium (Lipitor) 40 mg PO DAILY [facility] Last Admin: 06/21/18 12:00 Dose: 40 mg Dextrose (Dextrose 50% Inj) 0 ml IV STAT PRN; Protocol PRN Reason: Hypoglycemia Protocol Last Admin: 06/21/18 11:33 Dose: 50 ml Furosemide (Lasix) 40 mg PO 0800,1400 [facility] Last Admin: 06/21/18 12:01 Dose: 40 mg Lactated Ringer's (Lactated Ringer's) 1,000 mls @ 125 mls/hr IV .Q8H [facility] Last Admin: 06/21/18 01:16 Dose: 125 mls/hr Dextrose (Dextrose 5% In Water 1000 Ml) 1,000 mls @ 0 mls/hr IV .Q0M PRN; Protocol PRN Reason: Hypoglycemia Protocol Dextrose/Sodium Chloride (Dextrose 5%/0.45% Ns 1000 Ml) 1,000 mls @ 125 mls/hr IV .Q8H [facility] Insulin Human Regular (Humulin R Low) 0 units SC ACHS [facility]; Protocol Last Admin: 06/21/18 08:46 Dose: Not Given Levothyroxine Sodium (Synthroid) 50 mcg PO 0600 [facility] Last Admin: 06/21/18 05:40 Dose: Not Given Losartan Potassium (Cozaar) 100 mg PO DAILY [facility] Last Admin: 06/21/18 12:00 Dose: 100 mg Magnesium Oxide (Mag-Ox) 400 mg PO DAILY [facility] Last Admin: 06/21/18 11:59 Dose: 400 mg Metoprolol Tartrate (Lopressor) 50 mg PO BID [facility] Morphine Sulfate (Morphine) 2 mg IVP Q6H PRN PRN Reason: Pain, severe (8-10) Non-Formulary Medication (Silodosin [Rapaflo]) 4 mg PO HS [facility] Ondansetron HCl (Zofran Inj) 4 mg IVP Q6H PRN PRN Reason: Nausea/Vomiting Pantoprazole Sodium (Protonix Inj) 40 mg IVP DAILY [facility] Potassium Chloride (Klor-Con 10) 10 meq PO DAILY [facility] Last Admin: 06/21/18 11:59 Dose: 10 meq Rivaroxaban (Xarelto) 15 mg PO DAILY [facility]; Protocol - Labs Labs: 06/21/18 06:30 06/21/18 06:30 PT 30.7 SECONDS (9.4-12.5) H 06/20/18 15:24 INR 2.77 06/20/18 15:24 APTT 42.2 Seconds (26.9-38.3) H 06/20/18 15:24 - Constitutional Appears: Well, Non-toxic, No Acute Distress - Head Exam Head Exam: ATRAUMATIC, NORMAL INSPECTION, NORMOCEPHALIC - Eye Exam Eye Exam: EOMI, PERRL - ENT Exam ENT Exam: Mucous Membranes Moist - Neck Exam Neck Exam: Full ROM - Respiratory Exam Respiratory Exam: Clear to Ausculation Bilateral, NORMAL BREATHING PATTERN. absent: Decreased Breath Sounds, Rales, Rhonchi, Wheezes - Cardiovascular Exam Cardiovascular Exam: REGULAR RHYTHM, RRR, +S1, +S2. absent: Clicks, Gallop, Rubs, Murmur - GI/Abdominal Exam GI & Abdominal Exam: Soft, Normal Bowel Sounds. absent: Distended, Firm, Guarding, Tenderness - Extremities Exam Extremities Exam: Full ROM, Normal Capillary Refill, Normal Inspection - Neurological Exam Neurological Exam: Alert, Awake, CN II-XII Intact, Oriented x3 - Psychiatric Exam Psychiatric exam: Normal Affect, Normal Mood - Skin Skin Exam: Dry, Intact, Normal Color Assessment and Plan - Assessment and Plan (Free Text) Assessment: 72 year old male with past medical history of Atrial Fibrillation on Xarelto, amiodarone, and metoprolol, diabetes mellitus type II, hypertension, hyperlipidemia, hemorrhoids, and diverticulosis presented with abdominal pain and intractible nausea and vomiting. CT abdomen and pelvis on 06/20 showed distended gallbladder. Cholelithiasis without evidence of acute cholecystitis. Pancreas was shown to be unremarkable. Gallbladder ultrasound also showed cholithiasis with no evidence of cholecystitis. Plan: Abdominal pain / to gallstone pancreatitis vs. choledocholithiasis -CT abdomen and pelvis 06/20: distended gallbladder. Cholelithiasis without evidence of acute cholecystitis. Pancreas was shown to be unremarkable. -Gallbladder ultrasound 06/20: cholelithiasis with no evidence of cholecystitis. -Lipase on admission was [id number], which has trended down to 656 -Lipid panel is within normal limits. -AST, ALT, ALP, and bilirubin were all elevated on admission and AST and ALP are trending down at this time. Bilirubin is trending up. -Mild elevation of WBC in the 11s -Blood alcohol level was unremarkable. He reports drinking a few shots every other day. -Patient fulfills 2 out of 3 criteria for pancreatitis and was thus diagnosed with likely pancreatitis -Patient received 3 L of IV fluids. Initially was on LR, but switched to D51/2NS due to hypoglycemia since he is NPO -Patient is NPO for possible procedure -Xarelto held for possible procedure. -Continue with morphine PRN for pain -Continue with zofran PRN for nausea -General surgery recommends MRCP to rule out choledocholithiasis. -Cardiology, Dr. Aponte, consulted for cardiology clearance for possible procedure. -General surgery, Dr. Colon, consulted for recommendations. Follow recs -GI, Dr. Bills, consulted for recommendations. Follow recs Diabetes Mellitus -HgbA1c: 8.4 -Patient was found to be hypoglycemic and was started on D51/2NS -Continue with low SSI Paroxysmal atrial fibrillation -EKG on admission showed atrial fibrillation but is rate controlled -Continue home amiodarone, metoprolol tartrate -Held xarelto due to possible procedure -Continue home aspirin Benign prostatic hyperplasia -Continue with home sildosin Coronary artery disease -Continue with home aspirin, lipitor, cozaar, and lopressor Systolic Congestive heart failure -Echo from 05/14/16: LVEF: 23.3%, four chamber dilation, RVSP 51, small pericardial effusion -Continue with home lasix, cozaar, lopressor -Continue with potassium chloride and magnesium oxide for side effects of lasix. Hypertension -Continue with home cozaar, lopressor Hyperlipidemia -Continue with home lipitor Hypothyroidism -Continue with home levothyroxine GI prophylaxis: protonix DVT prophylaxis: xarelto held, SCD Patient plan discussed with Dr. Bravo. <Rosalba Bravo - Last Filed: 06/21/18 13:48> Objective - Vital Signs/Intake and Output Vital Signs (last 24 hours): Temp Pulse Resp BP Pulse Ox 98 F 62 20 125/51 L 93 L 06/21/18 08:53 06/21/18 08:53 06/21/18 08:53 06/21/18 12:01 06/21/18 08:53 - Medications Medications: Current Medications Amiodarone HCl (Cordarone) 200 mg PO DAILY [facility] Last Admin: 06/21/18 12:07 Dose: 200 mg Aspirin (Aspirin Chewable) 81 mg PO DAILY [facility] Last Admin: 06/21/18 12:00 Dose: 81 mg Atorvastatin Calcium (Lipitor) 40 mg PO DAILY [facility] Last Admin: 06/21/18 12:00 Dose: 40 mg Dextrose (Dextrose 50% Inj) 0 ml IV STAT PRN; Protocol PRN Reason: Hypoglycemia Protocol Last Admin: 06/21/18 11:33 Dose: 50 ml Furosemide (Lasix) 40 mg PO 0800,1400 [facility] Last Admin: 06/21/18 12:01 Dose: 40 mg Lactated Ringer's (Lactated Ringer's) 1,000 mls @ 125 mls/hr IV .Q8H [facility] Last Admin: 06/21/18 01:16 Dose: 125 mls/hr Dextrose (Dextrose 5% In Water 1000 Ml) 1,000 mls @ 0 mls/hr IV .Q0M PRN; Protocol PRN Reason: Hypoglycemia Protocol Dextrose/Sodium Chloride (Dextrose 5%/0.45% Ns 1000 Ml) 1,000 mls @ 125 mls/hr IV .Q8H [facility] Insulin Human Regular (Humulin R Low) 0 units SC ACHS [facility]; Protocol Last Admin: 06/21/18 08:46 Dose: Not Given Levothyroxine Sodium (Synthroid) 50 mcg PO 0600 [facility] Last Admin: 06/21/18 05:40 Dose: Not Given Losartan Potassium (Cozaar) 100 mg PO DAILY [facility] Last Admin: 06/21/18 12:00 Dose: 100 mg Magnesium Oxide (Mag-Ox) 400 mg PO DAILY [facility] Last Admin: 06/21/18 11:59 Dose: 400 mg Metoprolol Tartrate (Lopressor) 50 mg PO BID [facility] Morphine Sulfate (Morphine) 2 mg IVP Q6H PRN PRN Reason: Pain, severe (8-10) Non-Formulary Medication (Silodosin [Rapaflo]) 4 mg PO HS [facility] Ondansetron HCl (Zofran Inj) 4 mg IVP Q6H PRN PRN Reason: Nausea/Vomiting Pantoprazole Sodium (Protonix Inj) 40 mg IVP DAILY [facility] Potassium Chloride (Klor-Con 10) 10 meq PO DAILY [facility] Last Admin: 06/21/18 11:59 Dose: 10 meq Rivaroxaban (Xarelto) 15 mg PO DAILY [facility]; Protocol - Labs Labs: 06/21/18 06:30 06/21/18 06:30 PT 30.7 SECONDS (9.4-12.5) H 06/20/18 15:24 INR 2.77 06/20/18 15:24 APTT 42.2 Seconds (26.9-38.3) H 06/20/18 15:24 Attending/Attestation - Attestation I have personally seen and examined this patient.: Yes I have fully participated in the care of the patient.: Yes I have reviewed all pertinent clinical information, including history, physical exam and plan: Yes Notes (Text): 06/21/18 13:42 72 year old male with past medical history of afib on xarelto, diabetes, hypertension, dyslipidemia and CAD who presented with complaint of abdominal pain with nausea/vomiting. He was found to have cholelithiasis on US/CT with elevated lipase; admitted for gallstone pancreatitis. Continue with NPO, iv fluids and analgesics. GI and surgery evaluation are requested. MRCP is ordered. Cardiology evaluation also requested for cardiac clearance if plan is for any procedure. Xarelto on hold for now in case plan is for procedure. Patient was counselled on alcohol abstinence. Rosalba Bravo MD Hospitalist.
--- NOTE | 2018-06-21 12:18 | CP.PCM.APN ---
Subjective - Date & Time of Evaluation Date of Evaluation: 06/21/18 Time of Evaluation: 12:00 - Subjective Subjective: pt seen and examined at bedside, pt reports he feels better , sttes he is awaiting MRI , no n/v at [facility] time states abd pain has improved Review of Systems - Constitutional Constitutional: As Per HPI Objective - Vital Signs/Intake and Output Vital Signs (last 24 hours): Temp Pulse Resp BP Pulse Ox 98 F 62 20 125/51 L 93 L 06/21/18 08:53 06/21/18 08:53 06/21/18 08:53 06/21/18 12:01 06/21/18 08:53 - Medications Medications: Current Medications Amiodarone HCl (Cordarone) 200 mg PO DAILY [facility] Last Admin: 06/21/18 12:07 Dose: 200 mg Aspirin (Aspirin Chewable) 81 mg PO DAILY [facility] Last Admin: 06/21/18 12:00 Dose: 81 mg Atorvastatin Calcium (Lipitor) 40 mg PO DAILY [facility] Last Admin: 06/21/18 12:00 Dose: 40 mg Dextrose (Dextrose 50% Inj) 0 ml IV STAT PRN; Protocol PRN Reason: Hypoglycemia Protocol Last Admin: 06/21/18 11:33 Dose: 50 ml Furosemide (Lasix) 40 mg PO 0800,1400 [facility] Last Admin: 06/21/18 12:01 Dose: 40 mg Lactated Ringer's (Lactated Ringer's) 1,000 mls @ 125 mls/hr IV .Q8H [facility] Last Admin: 06/21/18 01:16 Dose: 125 mls/hr Dextrose (Dextrose 5% In Water 1000 Ml) 1,000 mls @ 0 mls/hr IV .Q0M PRN; Protocol PRN Reason: Hypoglycemia Protocol Dextrose/Sodium Chloride (Dextrose 5%/0.45% Ns 1000 Ml) 1,000 mls @ 125 mls/hr IV .Q8H [facility] Insulin Human Regular (Humulin R Low) 0 units SC ACHS [facility]; Protocol Last Admin: 06/21/18 08:46 Dose: Not Given Levothyroxine Sodium (Synthroid) 50 mcg PO 0600 [facility] Last Admin: 06/21/18 05:40 Dose: Not Given Losartan Potassium (Cozaar) 100 mg PO DAILY [facility] Last Admin: 06/21/18 12:00 Dose: 100 mg Magnesium Oxide (Mag-Ox) 400 mg PO DAILY [facility] Last Admin: 06/21/18 11:59 Dose: 400 mg Metoprolol Tartrate (Lopressor) 50 mg PO BID [facility] Morphine Sulfate (Morphine) 2 mg IVP Q6H PRN PRN Reason: Pain, severe (8-10) Non-Formulary Medication (Silodosin [Rapaflo]) 4 mg PO HS [facility] Ondansetron HCl (Zofran Inj) 4 mg IVP Q6H PRN PRN Reason: Nausea/Vomiting Pantoprazole Sodium (Protonix Inj) 40 mg IVP DAILY [facility] Potassium Chloride (Klor-Con 10) 10 meq PO DAILY [facility] Last Admin: 06/21/18 11:59 Dose: 10 meq Rivaroxaban (Xarelto) 15 mg PO DAILY [facility]; Protocol - Labs Labs: 06/21/18 06:30 06/21/18 06:30 PT 30.7 SECONDS (9.4-12.5) H 06/20/18 15:24 INR 2.77 06/20/18 15:24 APTT 42.2 Seconds (26.9-38.3) H 06/20/18 15:24 - Constitutional Appears: Well, Non-toxic, No Acute Distress - Head Exam Head Exam: ATRAUMATIC, NORMAL INSPECTION - Eye Exam Eye Exam: Normal appearance - ENT Exam ENT Exam: Mucous Membranes Moist - Neck Exam Neck Exam: Normal Inspection - Respiratory Exam Respiratory Exam: NORMAL BREATHING PATTERN - Cardiovascular Exam Cardiovascular Exam: +S2 - GI/Abdominal Exam GI & Abdominal Exam: Guarding, Tenderness, Normal Bowel Sounds - Extremities Exam Extremities Exam: Full ROM - Neurological Exam Neurological Exam: Alert, Awake - Psychiatric Exam Psychiatric exam: Anxious - Skin Skin Exam: Dry, Intact Assessment and Plan - Assessment and Plan (Free Text) Plan: ITS Impressions Abdomen/Pelvis CT 06/20/18 15:12 IMPRESSION: Distended gallbladder. Cholelithiasis without CT evidence of acute cholecystitis. No significant interval change compared to the prior examination(s). Chest X-Ray 06/21/18 08:03 IMPRESSION: No active disease. Gallbladder Ultrasound 06/21/18 08:44 IMPRESSION: Cholelithiasis. No sonographic evidence of acute cholecystitis. A/P 72 yr old white male with pmh sig for afib , Chf with normal EF, htn, hld, hemorrhoids, diverticulosis who presented to the ED with diffuse abd pain. pt was admitted for further eval with GI, cardiology and surgical consultation. pt workup so far revealed distended Gb on Ct, cholelithiasis on US and pt is now awaiting MRI/MRCP. will follow results. BPCI/TIC - BPCIA/TIC Educated pt/family on BPCIA/CIR/Med to Bed Programs: N/A Flyers given, including [facility] Beneficiary letter: N/A Pt/family verbalized understanding & agreed to program: N/A
--- NOTE | 2018-06-21 13:31 | MRI ---
Date of service: 06/21/2018 PROCEDURE: Magnetic Resonance Cholangiopancreatography HISTORY: Rule out choledocholithiasis COMPARISON: None available. TECHNIQUE: Multiplanar, multisequence MR images of the abdomen were obtained, including heavily T2 weighted MRCP images of the biliary system. Rotating maximum intensity projection images of the biliary system were generated. FINDINGS: MRCP: There is a 6 mm stone in the distal common duct. There is no evidence of biliary obstruction or dilatation. Multiple stones are seen in the gallbladder LIVER: Unremarkable. GALLBLADDER: Multiple small stones SPLEEN: Unremarkable. PANCREAS: Unremarkable. ADRENALS: Unremarkable. KIDNEYS: Unremarkable. AORTA: No aneurysm. ASCITES: None. OTHER FINDINGS: None. IMPRESSION: There is a 6 mm stone in the distal common duct. There is no evidence of biliary obstruction or dilatation. Multiple stones are seen in the gallbladder
--- NOTE | 2018-06-21 16:55 | CP.PCM.CON ---
<Sonny Morales - Last Filed: 06/21/18 17:05> History of Present Illness - History of Present Illness History of Present Illness: PGY6 GI Fellow Consult Note Patient is a 72yo male with PMHx significant for atrial fibrillation on Xarelto, DM2, HTN, HLD and hypothyroidism who presented to ED with complaints of abdominal pain. Pain began suddenly one day prior to admission. Patient cannot locate any one particular area that hurts, rather stating that pain was diffuse at onset. He did try to alleviate symptoms with the use of Pepto Bismol but did not have any improvement. As pain intensified, he developed nausea but did not vomit. Given prolonged symptoms, he came to the ED for evaluation. In the ED he was noted to have KYLE and elevated LFTs (mixed patter). A CT and U/S of the abdomen revealed cholelithiasis. Currently, patient has ongoing abdominal pain, though improved from prior. Denies any fever, chills, weight loss, change in bowel habits. 12 system ROS performed and negative except where stated PMHx: See HPI PSHx: B/L total knee replacement FHx: Father - CAD; Brother - CKD; Sister - brain malignancy Social: Prior tobacco use (quit > 10 yrs ago), +EtOH use every other day; denies illicit drug use Past Patient History - Infectious Disease Hx of Infectious Diseases: None - Tetanus Immunizations Tetanus Immunization: Unknown - Past Medical History & Family History Past Medical History?: Yes - Past Social History Smoking Status: Former Smoker - CARDIAC Hx Angina: Yes Hx Cardia Arrhythmia: Yes Hx Hypercholesterolemia: Yes Hx Hypertension: Yes Other/Comment: CABG X2, PTCA - PULMONARY Hx Bronchitis: Yes Hx Pneumonia: Yes - HEENT Hx HEENT Problems: No (WEARS RX GLASSES) - ENDOCRINE/METABOLIC Hx Diabetes Mellitus Type 2: Yes - HEMATOLOGICAL/ONCOLOGICAL Hx Cancer: Yes (SKIN, SURGICAL INTERVENTION) - INTEGUMENTARY Other/Comment: melanoma removed form upper back 5 yr ago - MUSCULOSKELETAL/RHEUMATOLOGICAL Hx Falls: No - GASTROINTESTINAL Hx Gastrointestinal Disorders: No - GENITOURINARY/GYNECOLOGICAL Hx Prostate Problems: Yes (BPH) - PSYCHIATRIC Hx Substance Use: No - SURGICAL HISTORY Hx Surgeries: Yes Hx Cardiac Catheterization: Yes Hx Coronary Stent: Yes Hx Joint Replacement: Yes (B/L KNEE REPLACEMENTS) Hx Open Heart Surgery: Yes - ANESTHESIA Hx Anesthesia: Yes Hx Anesthesia Reactions: No Hx Malignant Hyperthermia: No Meds Allergies/Adverse Reactions: Allergies Allergy/AdvReac Type Severity Reaction Status Date / Time No Known Allergies Allergy Verified 06/20/18 14:43 - Medications Medications: Current Medications Amiodarone HCl (Cordarone) 200 mg PO DAILY [facility] Last Admin: 06/21/18 12:07 Dose: 200 mg Aspirin (Aspirin Chewable) 81 mg PO DAILY [facility] Last Admin: 06/21/18 12:00 Dose: 81 mg Atorvastatin Calcium (Lipitor) 40 mg PO DAILY [facility] Last Admin: 06/21/18 12:00 Dose: 40 mg Dextrose (Dextrose 50% Inj) 0 ml IV STAT PRN; Protocol PRN Reason: Hypoglycemia Protocol Last Admin: 06/21/18 11:33 Dose: 50 ml Furosemide (Lasix) 40 mg PO 0800,1400 [facility] Last Admin: 06/21/18 12:01 Dose: 40 mg Lactated Ringer's (Lactated Ringer's) 1,000 mls @ 125 mls/hr IV .Q8H [facility] Last Admin: 06/21/18 01:16 Dose: 125 mls/hr Dextrose (Dextrose 5% In Water 1000 Ml) 1,000 mls @ 0 mls/hr IV .Q0M PRN; Protocol PRN Reason: Hypoglycemia Protocol Dextrose/Sodium Chloride (Dextrose 5%/0.45% Ns 1000 Ml) 1,000 mls @ 125 mls/hr IV .Q8H [facility] Insulin Human Regular (Humulin R Low) 0 units SC ACHS [facility]; Protocol Last Admin: 06/21/18 08:46 Dose: Not Given Levothyroxine Sodium (Synthroid) 50 mcg PO 0600 [facility] Last Admin: 06/21/18 05:40 Dose: Not Given Losartan Potassium (Cozaar) 100 mg PO DAILY [facility] Last Admin: 06/21/18 12:00 Dose: 100 mg Magnesium Oxide (Mag-Ox) 400 mg PO DAILY [facility] Last Admin: 06/21/18 11:59 Dose: 400 mg Metoprolol Tartrate (Lopressor) 50 mg PO BID [facility] Morphine Sulfate (Morphine) 2 mg IVP Q6H PRN PRN Reason: Pain, severe (8-10) Non-Formulary Medication (Silodosin [Rapaflo]) 4 mg PO HS [facility] Ondansetron HCl (Zofran Inj) 4 mg IVP Q6H PRN PRN Reason: Nausea/Vomiting Pantoprazole Sodium (Protonix Inj) 40 mg IVP DAILY [facility] Potassium Chloride (Klor-Con 10) 10 meq PO DAILY [facility] Last Admin: 06/21/18 11:59 Dose: 10 meq Rivaroxaban (Xarelto) 15 mg PO DAILY [facility]; Protocol Physical Exam - Constitutional Appears: Non-toxic, No Acute Distress - Eye Exam Eye Exam: EOMI, PERRL - ENT Exam ENT Exam: Mucous Membranes Moist - Respiratory Exam Respiratory Exam: Clear to Auscultation Bilateral. absent: Rales, Rhonchi, Wheezes - Cardiovascular Exam Cardiovascular Exam: RRR, +S1, +S2 - GI/Abdominal Exam GI & Abdominal Exam: Normal Bowel Sounds, Soft, Tenderness. absent: Distended, Firm, Guarding, Mass, Organomegaly, Rigid - Extremities Exam Extremities exam: Positive for: normal inspection. Negative for: pedal edema - Neurological Exam Neurological exam: Alert, Oriented x3 - Psychiatric Exam Psychiatric exam: Normal Affect, Normal Mood - Skin Skin Exam: Dry, Warm Results - Vital Signs Recent Vital Signs: Last Vital Signs Temp 97.4 F L 06/21/18 16:44 Pulse 51 L 06/21/18 16:44 Resp 20 06/21/18 16:44 BP 115/49 L 06/21/18 16:44 Pulse Ox 95 06/21/18 16:44 - Labs Result Diagrams: 06/21/18 06:30 06/21/18 06:30 Labs: Laboratory Results - last 24 hr 06/20/18 06/20/18 06/20/18 16:51 17:24 20:40 WBC RBC Hgb Hct MCV MCH MCHC RDW Plt Count MPV Neut % (Auto) Lymph % (Auto) [place] % (Auto) Eos % (Auto) Baso % (Auto) Lymph # (Auto) [place] # (Auto) Eos # (Auto) Baso # (Auto) Absolute Neuts (auto) Retic Count pO2 17 L 30 VBG pH 7.35 7.40 VBG pCO2 48.0 41.0 VBG HCO3 26.5 25.4 VBG Total CO2 28.0 26.7 VBG O2 Sat (Calc) 14.5 L 53.8 VBG Base Excess 0.3 0.5 VBG Potassium 4.6 4.2 Sodium 138.0 136.0 Chloride 104.0 107.0 Glucose 100 69 L Lactate 2.6 H 1.4 FiO2 21.0 21.0 Crit Value Called To kathia Velázquez md Crit Value Called By Thania magana md Blood Gas Notified Time 1700 Potassium Carbon Dioxide Anion Gap BUN Creatinine Est GFR ( Amer) Est GFR (Non-Af Amer) POC Glucose (mg/dL) Random Glucose Hemoglobin A1c Calcium Phosphorus Total Bilirubin Direct Bilirubin AST ALT Alkaline Phosphatase Lactate Dehydrogenase Total Protein Albumin Globulin Albumin/Globulin Ratio Triglycerides Cholesterol LDL Cholesterol Direct HDL Cholesterol Lipase Free T4 TSH 3rd Generation Venous Blood Potassium 4.6 4.2 Urine Color Yellow Urine Appearance Clear Urine pH 6.5 Ur Specific [place] 1.010 Urine Protein Negative Urine Glucose (UA) Negative Urine Ketones Negative Urine Blood Negative Urine Nitrate Negative Urine Bilirubin Negative Urine Urobilinogen 0.2 Ur Leukocyte Esterase Negative Alcohol, Quantitative 06/20/18 06/21/18 06/21/18 21:50 06:30 06:30 WBC RBC Hgb Hct MCV MCH MCHC RDW Plt Count MPV Neut % (Auto) Lymph % (Auto) [place] % (Auto) Eos % (Auto) Baso % (Auto) Lymph # (Auto) [place] # (Auto) Eos # (Auto) Baso # (Auto) Absolute Neuts (auto) Retic Count pO2 VBG pH VBG pCO2 VBG HCO3 VBG Total CO2 VBG O2 Sat (Calc) VBG Base Excess VBG Potassium Sodium Chloride Glucose Lactate FiO2 Crit Value Called To Crit Value Called By Blood Gas Notified Time Potassium Carbon Dioxide Anion Gap BUN Creatinine Est GFR ( Amer) Est GFR (Non-Af Amer) POC Glucose (mg/dL) 99 Random Glucose Hemoglobin A1c 8.4 H Calcium Phosphorus Total Bilirubin Direct Bilirubin AST ALT Alkaline Phosphatase Lactate Dehydrogenase Total Protein Albumin Globulin Albumin/Globulin Ratio Triglycerides Cholesterol LDL Cholesterol Direct HDL Cholesterol Lipase Free T4 2.41 H TSH 3rd Generation 2.58 Venous Blood Potassium Urine Color Urine Appearance Urine pH Ur Specific [place] Urine Protein Urine Glucose (UA) Urine Ketones Urine Blood Urine Nitrate Urine Bilirubin Urine Urobilinogen Ur Leukocyte Esterase Alcohol, Quantitative 06/21/18 06/21/18 06/21/18 06:30 06:30 07:15 WBC 11.9 H RBC 3.59 Hgb 11.0 L D Hct 35.0 L MCV 97.5 MCH 30.6 MCHC 31.4 RDW 15.8 H Plt Count 149 MPV 11.7 H Neut % (Auto) 81.8 H Lymph % (Auto) 8.8 L [place] % (Auto) 9.0 H Eos % (Auto) 0.3 L Baso % (Auto) 0.1 Lymph # (Auto) 1.1 L [place] # (Auto) 1.1 H Eos # (Auto) 0.0 Baso # (Auto) 0.01 Absolute Neuts (auto) 9.71 H Retic Count pO2 VBG pH VBG pCO2 VBG HCO3 VBG Total CO2 VBG O2 Sat (Calc) VBG Base Excess VBG Potassium Sodium 140 Chloride 106 Glucose Lactate FiO2 Crit Value Called To Crit Value Called By Blood Gas Notified Time Potassium 4.3 Carbon Dioxide 24 Anion Gap 14 BUN 24 H Creatinine 1.7 H Est GFR ( Amer) 48 Est GFR (Non-Af Amer) 40 POC Glucose (mg/dL) 57 L Random Glucose 51 L Hemoglobin A1c Calcium 8.8 Phosphorus 4.0 Total Bilirubin 5.3 H Direct Bilirubin AST 88 H ALT 69 H Alkaline Phosphatase 254 H Lactate Dehydrogenase Total Protein 6.9 Albumin 3.7 Globulin 3.2 Albumin/Globulin Ratio 1.1 Triglycerides 73 Cholesterol 100 L LDL Cholesterol Direct 49 HDL Cholesterol 33 Lipase 656 H Free T4 TSH 3rd Generation Venous Blood Potassium Urine Color Urine Appearance Urine pH Ur Specific [place] Urine Protein Urine Glucose (UA) Urine Ketones Urine Blood Urine Nitrate Urine Bilirubin Urine Urobilinogen Ur Leukocyte Esterase Alcohol, Quantitative 06/21/18 06/21/18 06/21/18 08:20 08:32 09:15 WBC RBC Hgb Hct MCV MCH MCHC RDW Plt Count MPV Neut % (Auto) Lymph % (Auto) [place] % (Auto) Eos % (Auto) Baso % (Auto) Lymph # (Auto) [place] # (Auto) Eos # (Auto) Baso # (Auto) Absolute Neuts (auto) Retic Count 1.63 H pO2 VBG pH VBG pCO2 VBG HCO3 VBG Total CO2 VBG O2 Sat (Calc) VBG Base Excess VBG Potassium Sodium Chloride Glucose Lactate FiO2 Crit Value Called To Crit Value Called By Blood Gas Notified Time Potassium Carbon Dioxide Anion Gap BUN Creatinine Est GFR ( Amer) Est GFR (Non-Af Amer) POC Glucose (mg/dL) 84 Random Glucose Hemoglobin A1c Calcium Phosphorus Total Bilirubin Direct Bilirubin AST ALT Alkaline Phosphatase Lactate Dehydrogenase Total Protein Albumin Globulin Albumin/Globulin Ratio Triglycerides Cholesterol LDL Cholesterol Direct HDL Cholesterol Lipase Free T4 TSH 3rd Generation Venous Blood Potassium Urine Color Urine Appearance Urine pH Ur Specific [place] Urine Protein Urine Glucose (UA) Urine Ketones Urine Blood Urine Nitrate Urine Bilirubin Urine Urobilinogen Ur Leukocyte Esterase Alcohol, Quantitative < 10 06/21/18 06/21/18 06/21/18 09:15 11:03 12:15 WBC RBC Hgb Hct MCV MCH MCHC RDW Plt Count MPV Neut % (Auto) Lymph % (Auto) [place] % (Auto) Eos % (Auto) Baso % (Auto) Lymph # (Auto) [place] # (Auto) Eos # (Auto) Baso # (Auto) Absolute Neuts (auto) Retic Count pO2 VBG pH VBG pCO2 VBG HCO3 VBG Total CO2 VBG O2 Sat (Calc) VBG Base Excess VBG Potassium Sodium Chloride Glucose Lactate FiO2 Crit Value Called To Crit Value Called By Blood Gas Notified Time Potassium Carbon Dioxide Anion Gap BUN Creatinine Est GFR ( Amer) Est GFR (Non-Af Amer) POC Glucose (mg/dL) 52 L 80 Random Glucose Hemoglobin A1c Calcium Phosphorus Total Bilirubin Direct Bilirubin 3.8 H AST ALT Alkaline Phosphatase Lactate Dehydrogenase 493 Total Protein Albumin Globulin Albumin/Globulin Ratio Triglycerides Cholesterol LDL Cholesterol Direct HDL Cholesterol Lipase Free T4 TSH 3rd Generation Venous Blood Potassium Urine Color Urine Appearance Urine pH Ur Specific [place] Urine Protein Urine Glucose (UA) Urine Ketones Urine Blood Urine Nitrate Urine Bilirubin Urine Urobilinogen Ur Leukocyte Esterase Alcohol, Quantitative 06/21/18 16:27 WBC RBC Hgb Hct MCV MCH MCHC RDW Plt Count MPV Neut % (Auto) Lymph % (Auto) [place] % (Auto) Eos % (Auto) Baso % (Auto) Lymph # (Auto) [place] # (Auto) Eos # (Auto) Baso # (Auto) Absolute Neuts (auto) Retic Count pO2 VBG pH VBG pCO2 VBG HCO3 VBG Total CO2 VBG O2 Sat (Calc) VBG Base Excess VBG Potassium Sodium Chloride Glucose Lactate FiO2 Crit Value Called To Crit Value Called By Blood Gas Notified Time Potassium Carbon Dioxide Anion Gap BUN Creatinine Est GFR ( Amer) Est GFR (Non-Af Amer) POC Glucose (mg/dL) 66 Random Glucose Hemoglobin A1c Calcium Phosphorus Total Bilirubin Direct Bilirubin AST ALT Alkaline Phosphatase Lactate Dehydrogenase Total Protein Albumin Globulin Albumin/Globulin Ratio Triglycerides Cholesterol LDL Cholesterol Direct HDL Cholesterol Lipase Free T4 TSH 3rd Generation Venous Blood Potassium Urine Color Urine Appearance Urine pH Ur Specific [place] Urine Protein Urine Glucose (UA) Urine Ketones Urine Blood Urine Nitrate Urine Bilirubin Urine Urobilinogen Ur Leukocyte Esterase Alcohol, Quantitative Assessment & Plan - Assessment and Plan (Free Text) Assessment: Patient is a 72yo male with PMHx significant for atrial fibrillation on Xarelto, DM2, HTN, HLD and hypothyroidism who presented to ED with complaints of abdominal pain -Cholelithiasis -Choledocolithiasis -Elevated LFTs likely 2/2 above -KYLE -Atrial fibrillation on Xarelto (HELD) -DM2 Plan: -MRCP ordered and reviewed with distal CBD filling defect concerning for obstruction -LFTs with direct hyperbilirubinemia could reflect biliary obstruction -Xarelto is currently held with last dose 06/20/18 - Xarelto ideally held for at least 2 days prior to endoscopic interventions -Patient may benefit from ERCP, will discuss timing with Dr Bills -Liquid diet recommended - Date & Time Date: 06/21/18 Time: 09:30 <Crystal Bills V - Last Filed: 06/22/18 20:50> Meds - Medications Medications: Current Medications Amiodarone HCl (Cordarone) 200 mg PO DAILY [facility] Last Admin: 06/21/18 12:07 Dose: 200 mg Aspirin (Aspirin Chewable) 81 mg PO DAILY [facility] Last Admin: 06/21/18 12:00 Dose: 81 mg Atorvastatin Calcium (Lipitor) 40 mg PO DAILY [facility] Last Admin: 06/21/18 12:00 Dose: 40 mg Dextrose (Dextrose 50% Inj) 0 ml IV STAT PRN; Protocol PRN Reason: Hypoglycemia Protocol Last Admin: 06/21/18 11:33 Dose: 50 ml Furosemide (Lasix) 40 mg PO 0800,1400 [facility] Last Admin: 06/21/18 18:07 Dose: Not Given Lactated Ringer's (Lactated Ringer's) 1,000 mls @ 125 mls/hr IV .Q8H [facility] Last Admin: 06/21/18 01:16 Dose: 125 mls/hr Dextrose (Dextrose 5% In Water 1000 Ml) 1,000 mls @ 0 mls/hr IV .Q0M PRN; Protocol PRN Reason: Hypoglycemia Protocol Dextrose/Sodium Chloride (Dextrose 5%/0.45% Ns 1000 Ml) 1,000 mls @ 125 mls/hr IV .Q8H [facility] Last Admin: 06/22/18 05:43 Dose: 125 mls/hr Insulin Human Regular (Humulin R Low) 0 units SC ACHS [facility]; Protocol Last Admin: 06/21/18 22:00 Dose: Not Given Levothyroxine Sodium (Synthroid) 50 mcg PO 0600 [facility] Last Admin: 06/22/18 05:35 Dose: 50 mcg Losartan Potassium (Cozaar) 100 mg PO DAILY [facility] Last Admin: 06/21/18 12:00 Dose: 100 mg Magnesium Oxide (Mag-Ox) 400 mg PO DAILY [facility] Last Admin: 06/21/18 11:59 Dose: 400 mg Metoprolol Tartrate (Lopressor) 50 mg PO BID [facility] Last Admin: 06/21/18 18:06 Dose: Not Given Morphine Sulfate (Morphine) 2 mg IVP Q6H PRN PRN Reason: Pain, severe (8-10) Non-Formulary Medication (Silodosin [Rapaflo]) 4 mg PO HS [facility] Last Admin: 06/21/18 22:02 Dose: Not Given Ondansetron HCl (Zofran Inj) 4 mg IVP Q6H PRN PRN Reason: Nausea/Vomiting Pantoprazole Sodium (Protonix Inj) 40 mg IVP DAILY [facility] Last Admin: 06/21/18 11:55 Dose: 40 mg Potassium Chloride (Klor-Con 10) 10 meq PO DAILY [facility] Last Admin: 06/21/18 11:59 Dose: 10 meq Rivaroxaban (Xarelto) 15 mg PO DAILY [facility]; Protocol Results - Vital Signs Recent Vital Signs: Last Vital Signs Temp 97.4 F L 06/21/18 16:44 Pulse 62 06/21/18 18:06 Resp 20 06/21/18 16:44 BP 115/49 L 06/21/18 18:07 Pulse Ox 95 06/21/18 16:44 - Labs Result Diagrams: 06/22/18 06:45 06/22/18 06:45 Labs: Laboratory Results - last 24 hr 06/21/18 06/21/18 06/21/18 06:30 06:30 06:30 WBC 11.9 H RBC 3.59 Hgb 11.0 L D Hct 35.0 L MCV 97.5 MCH 30.6 MCHC 31.4 RDW 15.8 H Plt Count 149 MPV 11.7 H Neut % (Auto) 81.8 H Lymph % (Auto) 8.8 L [place] % (Auto) 9.0 H Eos % (Auto) 0.3 L Baso % (Auto) 0.1 Lymph # (Auto) 1.1 L [place] # (Auto) 1.1 H Eos # (Auto) 0.0 Baso # (Auto) 0.01 Absolute Neuts (auto) 9.71 H Retic Count Sodium Potassium Chloride Carbon Dioxide Anion Gap BUN Creatinine Est GFR ( Amer) Est GFR (Non-Af Amer) POC Glucose (mg/dL) Random Glucose Hemoglobin A1c 8.4 H Calcium Phosphorus Total Bilirubin Direct Bilirubin AST ALT Alkaline Phosphatase Lactate Dehydrogenase Total Protein Albumin Globulin Albumin/Globulin Ratio Triglycerides Cholesterol LDL Cholesterol Direct HDL Cholesterol Lipase Free T4 2.41 H TSH 3rd Generation 2.58 Alcohol, Quantitative 06/21/18 06/21/18 06/21/18 06:30 07:15 08:20 WBC RBC Hgb Hct MCV MCH MCHC RDW Plt Count MPV Neut % (Auto) Lymph % (Auto) [place] % (Auto) Eos % (Auto) Baso % (Auto) Lymph # (Auto) [place] # (Auto) Eos # (Auto) Baso # (Auto) Absolute Neuts (auto) Retic Count Sodium 140 Potassium 4.3 Chloride 106 Carbon Dioxide 24 Anion Gap 14 BUN 24 H Creatinine 1.7 H Est GFR ( Amer) 48 Est GFR (Non-Af Amer) 40 POC Glucose (mg/dL) 57 L Random Glucose 51 L Hemoglobin A1c Calcium 8.8 Phosphorus 4.0 Total Bilirubin 5.3 H Direct Bilirubin AST 88 H ALT 69 H Alkaline Phosphatase 254 H Lactate Dehydrogenase Total Protein 6.9 Albumin 3.7 Globulin 3.2 Albumin/Globulin Ratio 1.1 Triglycerides 73 Cholesterol 100 L LDL Cholesterol Direct 49 HDL Cholesterol 33 Lipase 656 H Free T4 TSH 3rd Generation Alcohol, Quantitative < 10 06/21/18 06/21/18 06/21/18 08:32 09:15 09:15 WBC RBC Hgb Hct MCV MCH MCHC RDW Plt Count MPV Neut % (Auto) Lymph % (Auto) [place] % (Auto) Eos % (Auto) Baso % (Auto) Lymph # (Auto) [place] # (Auto) Eos # (Auto) Baso # (Auto) Absolute Neuts (auto) Retic Count 1.63 H Sodium Potassium Chloride Carbon Dioxide Anion Gap BUN Creatinine Est GFR ( Amer) Est GFR (Non-Af Amer) POC Glucose (mg/dL) 84 Random Glucose Hemoglobin A1c Calcium Phosphorus Total Bilirubin Direct Bilirubin 3.8 H AST ALT Alkaline Phosphatase Lactate Dehydrogenase 493 Total Protein Albumin Globulin Albumin/Globulin Ratio Triglycerides Cholesterol LDL Cholesterol Direct HDL Cholesterol Lipase Free T4 TSH 3rd Generation Alcohol, Quantitative 06/21/18 06/21/18 06/21/18 11:03 12:15 16:27 WBC RBC Hgb Hct MCV MCH MCHC RDW Plt Count MPV Neut % (Auto) Lymph % (Auto) [place] % (Auto) Eos % (Auto) Baso % (Auto) Lymph # (Auto) [place] # (Auto) Eos # (Auto) Baso # (Auto) Absolute Neuts (auto) Retic Count Sodium Potassium Chloride Carbon Dioxide Anion Gap BUN Creatinine Est GFR ( Amer) Est GFR (Non-Af Amer) POC Glucose (mg/dL) 52 L 80 66 Random Glucose Hemoglobin A1c Calcium Phosphorus Total Bilirubin Direct Bilirubin AST ALT Alkaline Phosphatase Lactate Dehydrogenase Total Protein Albumin Globulin Albumin/Globulin Ratio Triglycerides Cholesterol LDL Cholesterol Direct HDL Cholesterol Lipase Free T4 TSH 3rd Generation Alcohol, Quantitative 06/21/18 21:36 WBC RBC Hgb Hct MCV MCH MCHC RDW Plt Count MPV Neut % (Auto) Lymph % (Auto) [place] % (Auto) Eos % (Auto) Baso % (Auto) Lymph # (Auto) [place] # (Auto) Eos # (Auto) Baso # (Auto) Absolute Neuts (auto) Retic Count Sodium Potassium Chloride Carbon Dioxide Anion Gap BUN Creatinine Est GFR ( Amer) Est GFR (Non-Af Amer) POC Glucose (mg/dL) 157 H Random Glucose Hemoglobin A1c Calcium Phosphorus Total Bilirubin Direct Bilirubin AST ALT Alkaline Phosphatase Lactate Dehydrogenase Total Protein Albumin Globulin Albumin/Globulin Ratio Triglycerides Cholesterol LDL Cholesterol Direct HDL Cholesterol Lipase Free T4 TSH 3rd Generation Alcohol, Quantitative Attending/Attestation - Attestation I have personally seen and examined this patient.: Yes I have fully participated in the care of the patient.: Yes I have reviewed all pertinent clinical information: Yes Notes (Text): This is an addendum to the GI consultation report dictated by the fellow. This patient was seen and evaluated the area. Imaging studies were reviewed. Obstructive jaundice rule out CBD stone. Patient is very anxious and elected for MRI we will give a dose of Ativan. To the MRCP. Follow-up LFT. Family history of colon cancer patient did have multiple polyps in the past. Last colonoscopy report was also reviewed 06/22/18 06:36 06/22/18 20:49
[2018-06-21] MEDS: Dextrose 5%/0.45% NS 1,000 ML IV SCH (21:30)
[2018-06-21] MEDS: SILODOSIN 4 MG PO SCH (22:02)
[2018-06-21] MEDS ORDERED: Phytonadione 10 mg/ml Inj (Adult) SC ONE (23:45)
[2018-06-22] MEDS ORDERED: Phytonadione 10 mg/ml Inj (Adult) ONE (00:14)
--- NOTE | 2018-06-22 03:18 | CON ---
DATE: 06/21/2018 REASON FOR CONSULTATION: Cardiac clearance for possible ERCP. BRIEF CLINICAL HISTORY: This is a 72-year-old male with past medical history significant for atrial fibrillation, on amiodarone and Xarelto; history of ischemic cardiomyopathy; history of coronary artery bypass surgery twice; diabetes; hypertension; hyperlipidemia; morbid obesity; first bypass 22 years ago; second bypass 17 years ago; history of multiple PTCAs by ks. Admitted with acute cholecystitis. Cardiology consult was called for preop evaluation and risk stratification for ERCP. Past history is significant for coronary artery disease, status post CABG at 24 years ago and then 15 years ago; history of reduced LV function; cardiomyopathy, ischemic; history of atrial fibrillation, paroxysmal. Now, the patient has persistent atrial fibrillation, on Xarelto and amiodarone. Previous cardiac workup as follows. The patient has a recent echo done in Dr. Aponte's office yesterday that showed ejection fraction of 25%, [id number] aortic stenosis. This is the preliminary report. Decreased LV function, mild MR, [id number] TR. History of prior MUGA scan showed ejection fraction of 45%. Most recent stress test the patient had on 06/30/2017 that shows ejection fraction 36%, fixed defect, moderate LV dysfunction, hypokinesis in comparison to last study dated 10/31/2014, inferolateral defect appears more prominent and remainder of the findings are unchanged. The patient's last MUGA scan dated 05/15/2016 that shows ejection fraction 53%. The patient has last echocardiography done here that shows four-chamber dilatation with 30% to 35%, mild mitral regurgitation and [id number] tricuspid regurgitation, RV systolic pressure 51. CURRENT MEDICATIONS: The patient at home is taking Rapaflo 4 mg daily, potassium chloride 10 mEq daily, metformin 1 g daily, amiodarone 200 mg daily, magnesium oxide 400 mg daily, levothyroxine 50 mg daily, aspirin 81 mg daily, metoprolol 50 mg daily, losartan 100 mg daily, glipizide 10 mg daily, atorvastatin 15 mg daily. REVIEW OF SYSTEMS: As per HPI. ALLERGIES: NO KNOWN DRUG ALLERGIES. PHYSICAL EXAMINATION: As follows: VITAL SIGNS: Height of the patient is 5 feet 6 inches. The patient weighs 225 pounds. Body mass index 36.3 kg per sq m. Temperature afebrile, heart rate 62, blood pressure 125/51. HEENT: PERRLA. Extraocular muscles intact. NECK: Supple. No carotid bruit or thyromegaly. CHEST: Clear to auscultation. HEART: S1 and S2, regular. ABDOMEN: Soft. EXTREMITIES: Clubbing and cyanosis negative. LABORATORY DATA: WBC 11.9, hemoglobin 11, and hematocrit 35, platelet count 149. Chemistry shows sodium 140, potassium 4.3, chloride 106, carbon dioxide of 24, anion gap of 14, BUN 24, and creatinine 1.7. IMPRESSION AND PLAN: A 72-year-old morbidly obese male with past medical history significant for coronary artery disease, status post coronary artery bypass surgery twice, once in 22 years ago and another in 15 years ago, history of multiple stent, history of paroxysmal atrial fibrillation, now is persistent and on Xarelto and amiodarone, history of ischemic cardiomyopathy, diabetes, hypertension, hyperlipidemia. Most recent echocardiogram was done two days ago in Dr. Aponte's office which shows ejection fraction 25%, mild mitral regurgitation, [id number] tricuspid regurgitation, [id number] aortic stenosis. Admitted with acute cholecystitis. Gallbladder ultrasound showed cholelithiasis. The patient is for possible endoscopic retrograde cholangiopancreatography, cardiology consultation was called for preoperative evaluation and risk stratification. The patient is cleared to go for cardiology point of view with moderate to high risk underlying comorbidity. No absolute contraindication. We will follow with you. Resume the previous medications. Thank you Dr. Moses for providing us the opportunity in taking care of the patient, Suad. Don Cullen MD
[2018-06-22] MEDS: Levothyroxine 50 MCG TAB PO SCH (05:35)
[2018-06-22] MEDS: Dextrose 5%/0.45% NS 1,000 ML IV SCH ×3 (05:43→23:46)
[2018-06-22 07:18] LABS: BASO # 0.01 K/mm3 (0.0-2.0); BASO % 0.1 % (0.0-3.0); EOS # 0.3 (0.0-0.7); EOS % 3.6 % (1.5-5.0); HEMOGLOBIN 10.6 g/dL (14.0-18.0); INR 1.56; LYMPH # 0.8 (1.2-3.4); LYMPH % 11.7 % (22.0-35.0); MEAN CORPUSCULAR HEMOGLOBIN 30.6 pg (25.0-35.0); MEAN CORPUSCULAR HGB CONC 31.3 g/dl (31.0-37.0); MEAN PLATELET VOLUME 11.4 fl (7.0-11.0); MONO # 0.6 (0.1-0.6); MONO % 8.4 % (1.0-6.0); PARTIAL THROMBOPLASTIN TIME 36.9 Seconds (26.9-38.3); PROTHROMBIN TIME 17.6 SECONDS (9.4-12.5); RBC 3.46 10^6/uL (3.5-6.1); RED CELL DISTRIBUTION WIDTH 16.2 % (11.5-14.5); WHITE BLOOD COUNT 6.9 10^3/uL (4.5-11.0)
[2018-06-22 07:29] LABS: ALB/GLOB RATIO 1.1 (1.1-1.8); ALBUMIN 3.6 g/dL (3.0-4.8); CALCIUM 8.6 mg/dL (8.4-10.5)
--- NOTE | 2018-06-22 08:12 | CP.PCM.PN ---
Subjective - Date & Time of Evaluation Date of Evaluation: 06/22/18 Time of Evaluation: 06:40 - Subjective Subjective: Awake, alert, sitting at side of bed Reason for consultation and follow up: Pre-op risk stratification for surgery, cardiac clearance, history of atrial fibrillation on Xarelto and Amiodarone, history of coronary artery disease Seen and examined by me and Dr. Cullen Objective - Vital Signs/Intake and Output Vital Signs (last 24 hours): Temp Pulse Resp BP Pulse Ox 97.4 F L 62 20 115/49 L 95 06/21/18 16:44 06/21/18 18:06 06/21/18 16:44 06/21/18 18:07 06/21/18 16:44 Intake and Output: 06/22/18 06/22/18 06:59 18:59 Intake Total 1620 Balance 1620 - Medications Medications: Current Medications Amiodarone HCl (Cordarone) 200 mg PO DAILY [facility] Last Admin: 06/21/18 12:07 Dose: 200 mg Aspirin (Aspirin Chewable) 81 mg PO DAILY [facility] Last Admin: 06/21/18 12:00 Dose: 81 mg Atorvastatin Calcium (Lipitor) 40 mg PO DAILY [facility] Last Admin: 06/21/18 12:00 Dose: 40 mg Dextrose (Dextrose 50% Inj) 0 ml IV STAT PRN; Protocol PRN Reason: Hypoglycemia Protocol Last Admin: 06/21/18 11:33 Dose: 50 ml Furosemide (Lasix) 40 mg PO 0800,1400 [facility] Last Admin: 06/21/18 18:07 Dose: Not Given Lactated Ringer's (Lactated Ringer's) 1,000 mls @ 125 mls/hr IV .Q8H [facility] Last Admin: 06/21/18 01:16 Dose: 125 mls/hr Dextrose (Dextrose 5% In Water 1000 Ml) 1,000 mls @ 0 mls/hr IV .Q0M PRN; Protocol PRN Reason: Hypoglycemia Protocol Dextrose/Sodium Chloride (Dextrose 5%/0.45% Ns 1000 Ml) 1,000 mls @ 125 mls/hr IV .Q8H [facility] Last Admin: 06/22/18 05:43 Dose: 125 mls/hr Insulin Human Regular (Humulin R Low) 0 units SC ACHS [facility]; Protocol Last Admin: 06/21/18 22:00 Dose: Not Given Levothyroxine Sodium (Synthroid) 50 mcg PO 0600 [facility] Last Admin: 06/22/18 05:35 Dose: 50 mcg Losartan Potassium (Cozaar) 100 mg PO DAILY [facility] Last Admin: 06/21/18 12:00 Dose: 100 mg Magnesium Oxide (Mag-Ox) 400 mg PO DAILY [facility] Last Admin: 06/21/18 11:59 Dose: 400 mg Metoprolol Tartrate (Lopressor) 50 mg PO BID [facility] Last Admin: 06/21/18 18:06 Dose: Not Given Morphine Sulfate (Morphine) 2 mg IVP Q6H PRN PRN Reason: Pain, severe (8-10) Non-Formulary Medication (Silodosin [Rapaflo]) 4 mg PO HS [facility] Last Admin: 06/21/18 22:02 Dose: Not Given Ondansetron HCl (Zofran Inj) 4 mg IVP Q6H PRN PRN Reason: Nausea/Vomiting Pantoprazole Sodium (Protonix Inj) 40 mg IVP DAILY [facility] Last Admin: 06/21/18 11:55 Dose: 40 mg Potassium Chloride (Klor-Con 10) 10 meq PO DAILY [facility] Last Admin: 06/21/18 11:59 Dose: 10 meq Rivaroxaban (Xarelto) 15 mg PO DAILY [facility]; Protocol - Labs Labs: 06/22/18 06:45 06/22/18 06:45 PT 17.6 SECONDS (9.4-12.5) H 06/22/18 06:45 INR 1.56 06/22/18 06:45 APTT 36.9 Seconds (26.9-38.3) 06/22/18 06:45 - Constitutional Appears: Non-toxic, No Acute Distress - Head Exam Head Exam: NORMAL INSPECTION, NORMOCEPHALIC - Eye Exam Eye Exam: Normal appearance Pupil Exam: NORMAL ACCOMODATION - ENT Exam ENT Exam: Mucous Membranes Moist, Normal Exam - Respiratory Exam Respiratory Exam: Decreased Breath Sounds, Clear to Ausculation Bilateral, NORMAL BREATHING PATTERN - Cardiovascular Exam Cardiovascular Exam: +S1, +S2 - GI/Abdominal Exam GI & Abdominal Exam: Guarding, Tenderness, Normal Bowel Sounds - Extremities Exam Extremities Exam: Full ROM, Normal Capillary Refill - Neurological Exam Neurological Exam: Alert, Awake, Oriented x3 - Psychiatric Exam Psychiatric exam: Normal Affect, Normal Mood - Skin Skin Exam: Dry, Normal Color, Warm Assessment and Plan - Assessment and Plan (Free Text) Assessment: A 72 year old obese male who came in to the ER due to complaints of abdominal pain. Admitted for acute cholecystitis. Ultrasound of the gallbladder showed cholelithiasis. History of chronic atrial fibrillation on Xarelto and Amiodarone, diabetes, hypertension, hyperlipidemia, hypothyroidism , coronary artery disease with coronary artery bypass surgery twice (22 years ago and 15 ye ars ago). Recent echo done at Dr. Aponte's office (3 days ago) showed LVEF 25%, mild mitral regurgitation, mild to moderate tricuspid regurgitation, mild to moderate aortic stenosis. He was cleared for procedure with moderate to high risk. Had MRCP yesterday and showed multiple stones in the gallbladder. No distress. GI on consult, work up in progress. Cardiac status stable. Decrease IV fluid to prevent congestion and overload especially with low EF. Plan: No distress. Cardiac status stable. Heart rate nad blood pressure stable On Amiodarone 200 mg daily, ASA 81 mg daily, Lipitor 40 mg daily, Lasix 40 mg BID, Synthroid 50 mcg daily, Cozaar 100 mg daily Lopressor 50 mg BID, Potassium 10 meq daily, Xarelto 15 mg daily Continue current treatment Continue current medications GI on consult, work up in progress Continue IV fluids for hydration but decrease to 50 cc/hr. Will follow up Plan and treatment discussed with Dr. Cullen
[2018-06-22] MEDS: Insulin Reg-LOW-Coverage SC SCH ×4 (08:19→21:37)
[2018-06-22] MEDS: Potassium Chloride 10 mEq ER Tab PO SCH (09:40)
[2018-06-22] MEDS: Magnesium Oxide 400 mg Tab UD PO SCH (09:41)
--- NOTE | 2018-06-22 11:06 | CP.PCM.PN ---
<Damion Gonzalez - Last Filed: 06/22/18 11:03> Subjective - Date & Time of Evaluation Date of Evaluation: 06/22/18 Time of Evaluation: 11:03 - Subjective Subjective: SURGERY NOTE FOR DR. LEHMAN 72M seen and examined at bedside. Patient denies abdominal pain, denies nausea or vomiting, fevers or chills. Tolerating liquid diet. Objective - Vital Signs/Intake and Output Vital Signs (last 24 hours): Temp Pulse Resp BP Pulse Ox 97.4 F L 63 20 153/72 H 95 06/21/18 16:44 06/22/18 09:40 06/21/18 16:44 06/22/18 09:40 06/21/18 16:44 Intake and Output: 06/22/18 06/22/18 06:59 18:59 Intake Total 1620 Balance 1620 - Medications Medications: Current Medications Amiodarone HCl (Cordarone) 200 mg PO DAILY [facility] Last Admin: 06/22/18 09:38 Dose: 200 mg Aspirin (Aspirin Chewable) 81 mg PO DAILY [facility] Last Admin: 06/22/18 10:43 Dose: Not Given Atorvastatin Calcium (Lipitor) 40 mg PO DAILY [facility] Last Admin: 06/22/18 09:40 Dose: 40 mg Dextrose (Dextrose 50% Inj) 0 ml IV STAT PRN; Protocol PRN Reason: Hypoglycemia Protocol Last Admin: 06/21/18 11:33 Dose: 50 ml Furosemide (Lasix) 40 mg PO 0800,1400 [facility] Last Admin: 06/22/18 08:40 Dose: 40 mg Lactated Ringer's (Lactated Ringer's) 1,000 mls @ 125 mls/hr IV .Q8H [facility] Last Admin: 06/21/18 01:16 Dose: 125 mls/hr Dextrose (Dextrose 5% In Water 1000 Ml) 1,000 mls @ 0 mls/hr IV .Q0M PRN; Pr otocol PRN Reason: Hypoglycemia Protocol Dextrose/Sodium Chloride (Dextrose 5%/0.45% Ns 1000 Ml) 1,000 mls @ 50 mls/hr IV .Q20H [facility] Last Admin: 06/22/18 09:40 Dose: 50 mls/hr Insulin Human Regular (Humulin R Low) 0 units SC ACHS [facility]; Protocol Last Admin: 06/22/18 08:19 Dose: Not Given Levothyroxine Sodium (Synthroid) 50 mcg PO 0600 [facility] Last Admin: 06/22/18 05:35 Dose: 50 mcg Losartan Potassium (Cozaar) 100 mg PO DAILY [facility] Last Admin: 06/22/18 09:39 Dose: 100 mg Magnesium Oxide (Mag-Ox) 400 mg PO DAILY [facility] Last Admin: 06/22/18 09:41 Dose: 400 mg Metoprolol Tartrate (Lopressor) 50 mg PO BID [facility] Last Admin: 06/22/18 09:40 Dose: 50 mg Morphine Sulfate (Morphine) 2 mg IVP Q6H PRN PRN Reason: Pain, severe (8-10) Non-Formulary Medication (Silodosin [Rapaflo]) 4 mg PO HS [facility] Last Admin: 06/21/18 22:02 Dose: Not Given Ondansetron HCl (Zofran Inj) 4 mg IVP Q6H PRN PRN Reason: Nausea/Vomiting Pantoprazole Sodium (Protonix Inj) 40 mg IVP DAILY [facility] Last Admin: 06/22/18 09:41 Dose: 40 mg Potassium Chloride (Klor-Con 10) 10 meq PO DAILY [facility] Last Admin: 06/22/18 09:40 Dose: 10 meq Rivaroxaban (Xarelto) 15 mg PO DAILY [facility]; Protocol - Labs Labs: 06/22/18 06:45 06/22/18 06:45 PT 17.6 SECONDS (9.4-12.5) H 06/22/18 06:45 INR 1.56 06/22/18 06:45 APTT 36.9 Seconds (26.9-38.3) 06/22/18 06:45 - Constitutional Appears: Non-toxic, No Acute Distress - Respiratory Exam Respiratory Exam: Clear to Ausculation Bilateral, NORMAL BREATHING PATTERN - Cardiovascular Exam Cardiovascular Exam: REGULAR RHYTHM, +S1, +S2 - GI/Abdominal Exam GI & Abdominal Exam: Soft. absent: Distended, Firm, Guarding, Rigid, Tenderness, Rebound Additional comments: obese abdomen - Neurological Exam Neurological Exam: Alert, Awake - Skin Skin Exam: Dry, Intact, Normal Color, Warm Assessment and Plan - Assessment and Plan (Free Text) Assessment: 72M with gallstone pancreatitis, choledocholithiasis as seen on MRCP Plan: - patient will require ERCP, f/u GI team - f/u tomm AM labs - Plan for outpatient cholecystectomy Discussed with Dr. Dominik Gonzalez, PGY3 <Brad Lehman - Last Filed: 06/26/18 20:42> Objective - Vital Signs/Intake and Output Vital Signs (last 24 hours): Temp Pulse Resp BP Pulse Ox 98.2 F 72 20 116/66 96 06/26/18 00:00 06/26/18 10:00 06/26/18 00:00 06/26/18 10:10 06/26/18 00:00 - Labs Labs: 06/26/18 07:00 06/26/18 07:00 PT 12.9 SECONDS (9.4-12.5) H 06/23/18 11:00 INR 1.14 06/23/18 11:00 APTT 36.9 Seconds (26.9-38.3) 06/22/18 06:45 Attending/Attestation - Attestation I have fully participated in the care of the patient.: Yes I have reviewed all pertinent clinical information, including history, physical exam and plan: Yes Notes (Text): Pt is improving clinically ERCP as per GI team Further cardiology work up after ERCP Out pt Lap Cholecystectomy after cardiac workup C/w current mx Plan d.w pt and primary team in detail. Risk and benefit explained in detail.
--- NOTE | 2018-06-22 11:09 | CP.PCM.PCO ---
Physician Communication Note - Physician Communication Note Physician Communication Note: pt seenand examined, mrcp results noted - +GB stonesm 6mm stone CBD Additional Comments - Additional Comments Additional Comments: dicuss with GI - plans for possible ERCP in 24-48 hrs, full liquid diet, xarelto on hold. will continue to follow GI recs
--- NOTE | 2018-06-22 11:46 | CP.PCM.PN ---
Subjective - Date & Time of Evaluation Date of Evaluation: 06/22/18 Time of Evaluation: 11:34 - Subjective Subjective: Peter Buenrostro- Internal Medicine Resident- Progress Note on Behalf of Dr. Bills Subjective: Patient seen and examined at bedside. Resting comfortably in bed. No acute overnight events. Patient states abdominal pain has resolved. Offers no new complaints at this time. Denies fever, chills, nausea, vomiting, diarrhea, constipation, and urinary symptoms. 12-point review of systems negative except as indicated in the HPI Physical Examination: - Constitutional Appears: Non-toxic, No Acute Distress - Eye Exam Eye Exam: EOMI, PERRL - ENT Exam ENT Exam: Mucous Membranes Moist - Respiratory Exam Respiratory Exam: Clear to Auscultation Bilateral. absent: Rales, Rhonchi, Wheezes - Cardiovascular Exam Cardiovascular Exam: RRR, +S1, +S2 - GI/Abdominal Exam GI & Abdominal Exam: Normal Bowel Sounds, Soft, Tenderness. absent: Distended, Firm, Guarding, Mass, Organomegaly, Rigid - Extremities Exam Extremities exam: Positive for: normal inspection. Negative for: pedal edema - Neurological Exam Neurological exam: Alert, Oriented x3 - Psychiatric Exam Psychiatric exam: Normal Affect, Normal Mood - Skin Skin Exam: Dry, Warm Assessment and Plan: Patient is a 72 year old male with a PMHx significant for atrial fibrillation on Xarelto, DM2, HTN, HLD and hypothyroidism who was admitted for evaluation and treatment of abdominal pain. -Cholelithiasis -Choledocolithiasis -Elevated LFTs- downtrending -KYLE -Atrial fibrillation on Xarelto (HELD) -MRCP ordered and reviewed- There is a 6 mm stone in the distal common duct. There is no evidence of biliary obstruction or dilatation. Multiple stones are seen in the gallbladder -LFTs with direct hyperbilirubinemia could reflect biliary obstruction -Xarelto is currently held -ERCP on 06/24/2018 -continue liquid diet Patient seen, case discussed with, and plan approved by Dr. Bills Objective - Vital Signs/Intake and Output Vital Signs (last 24 hours): Temp Pulse Resp BP Pulse Ox 97.4 F L 63 20 153/72 H 95 06/21/18 16:44 06/22/18 09:40 06/21/18 16:44 06/22/18 09:40 06/21/18 16:44 Intake and Output: 06/22/18 06/22/18 06:59 18:59 Intake Total 1620 Balance 1620 - Medications Medications: Current Medications Amiodarone HCl (Cordarone) 200 mg PO DAILY [facility] Last Admin: 06/22/18 09:38 Dose: 200 mg Aspirin (Aspirin Chewable) 81 mg PO DAILY [facility] Last Admin: 06/22/18 10:43 Dose: Not Given Atorvastatin Calcium (Lipitor) 40 mg PO DAILY [facility] Last Admin: 06/22/18 09:40 Dose: 40 mg Dextrose (Dextrose 50% Inj) 0 ml IV STAT PRN; Protocol PRN Reason: Hypoglycemia Protocol Last Admin: 06/21/18 11:33 Dose: 50 ml Furosemide (Lasix) 40 mg PO 0800,1400 [facility] Last Admin: 06/22/18 08:40 Dose: 40 mg Lactated Ringer's (Lactated Ringer's) 1,000 mls @ 125 mls/hr IV .Q8H [facility] Last Admin: 06/21/18 01:16 Dose: 125 mls/hr Dextrose (Dextrose 5% In Water 1000 Ml) 1,000 mls @ 0 mls/hr IV .Q0M PRN; Protocol PRN Reason: Hypoglycemia Protocol Dextrose/Sodium Chloride (Dextrose 5%/0.45% Ns 1000 Ml) 1,000 mls @ 50 mls/hr IV .Q20H [facility] Last Admin: 06/22/18 09:40 Dose: 50 mls/hr Insulin Human Regular (Humulin R Low) 0 units SC ACHS [facility]; Protocol Last Admin: 06/22/18 08:19 Dose: Not Given Levothyroxine Sodium (Synthroid) 50 mcg PO 0600 [facility] Last Admin: 06/22/18 05:35 Dose: 50 mcg Losartan Potassium (Cozaar) 100 mg PO DAILY [facility] Last Admin: 06/22/18 09:39 Dose: 100 mg Magnesium Oxide (Mag-Ox) 400 mg PO DAILY [facility] Last Admin: 06/22/18 09:41 Dose: 400 mg Metoprolol Tartrate (Lopressor) 50 mg PO BID [facility] Last Admin: 06/22/18 09:40 Dose: 50 mg Morphine Sulfate (Morphine) 2 mg IVP Q6H PRN PRN Reason: Pain, severe (8-10) Non-Formulary Medication (Silodosin [Rapaflo]) 4 mg PO HS [facility] Last Admin: 06/21/18 22:02 Dose: Not Given Ondansetron HCl (Zofran Inj) 4 mg IVP Q6H PRN PRN Reason: Nausea/Vomiting Pantoprazole Sodium (Protonix Inj) 40 mg IVP DAILY [facility] Last Admin: 06/22/18 09:41 Dose: 40 mg Potassium Chloride (Klor-Con 10) 10 meq PO DAILY [facility] Last Admin: 06/22/18 09:40 Dose: 10 meq Rivaroxaban (Xarelto) 15 mg PO DAILY [facility]; Protocol - Labs Labs: 06/22/18 06:45 06/22/18 06:45 PT 17.6 SECONDS (9.4-12.5) H 06/22/18 06:45 INR 1.56 06/22/18 06:45 APTT 36.9 Seconds (26.9-38.3) 06/22/18 06:45
--- NOTE | 2018-06-22 12:09 | CP.PCM.PN ---
<Bharath Honeycutt - Last Filed: 06/22/18 12:05> Subjective - Date & Time of Evaluation Date of Evaluation: 06/22/18 Time of Evaluation: 12:06 - Subjective Subjective: Bharath Honeycutt, PGY-1, Internal Medicine Progress Note for Dr. Bravo Patient seen and evaluated at bedside. Patient had no acute overnight events. Patient denies abdominal pain, nausea, vomiting, constipation, or diarrhea this morning. 12-point ROS was unremarkable except for what was mentioned above. Objective - Vital Signs/Intake and Output Vital Signs (last 24 hours): Temp Pulse Resp BP Pulse Ox 97.4 F L 63 20 153/72 H 95 06/21/18 16:44 06/22/18 09:40 06/21/18 16:44 06/22/18 09:40 06/21/18 16:44 Intake and Output: 06/22/18 06/22/18 06:59 18:59 Intake Total 1620 Balance 1620 - Medications Medications: Current Medications Amiodarone HCl (Cordarone) 200 mg PO DAILY [facility] Last Admin: 06/22/18 09:38 Dose: 200 mg Aspirin (Aspirin Chewable) 81 mg PO DAILY [facility] Last Admin: 06/22/18 10:43 Dose: Not Given Atorvastatin Calcium (Lipitor) 40 mg PO DAILY [facility] Last Admin: 06/22/18 09:40 Dose: 40 mg Dextrose (Dextrose 50% Inj) 0 ml IV STAT PRN; Protocol PRN Reason: Hypoglycemia Protocol Last Admin: 06/21/18 11:33 Dose: 50 ml Furosemide (Lasix) 40 mg PO 0800,1400 [facility] Last Admin: 06/22/18 08:40 Dose: 40 mg Lactated Ringer's (Lactated Ringer's) 1,000 mls @ 125 mls/hr IV .Q8H [facility] Last Admin: 06/21/18 01:16 Dose: 125 mls/hr Dextrose (Dextrose 5% In Water 1000 Ml) 1,000 mls @ 0 mls/hr IV .Q0M PRN; Protocol PRN Reason: Hypoglycemia Protocol Dextrose/Sodium Chloride (Dextrose 5%/0.45% Ns 1000 Ml) 1,000 mls @ 50 mls/hr IV .Q20H [facility] Last Admin: 06/22/18 09:40 Dose: 50 mls/hr Insulin Human Regular (Humulin R Low) 0 units SC ACHS [facility]; Protocol Last Admin: 06/22/18 08:19 Dose: Not Given Levothyroxine Sodium (Synthroid) 50 mcg PO 0600 [facility] Last Admin: 06/22/18 05:35 Dose: 50 mcg Losartan Potassium (Cozaar) 100 mg PO DAILY [facility] Last Admin: 06/22/18 09:39 Dose: 100 mg Magnesium Oxide (Mag-Ox) 400 mg PO DAILY [facility] Last Admin: 06/22/18 09:41 Dose: 400 mg Metoprolol Tartrate (Lopressor) 50 mg PO BID [facility] Last Admin: 06/22/18 09:40 Dose: 50 mg Morphine Sulfate (Morphine) 2 mg IVP Q6H PRN PRN Reason: Pain, severe (8-10) Non-Formulary Medication (Silodosin [Rapaflo]) 4 mg PO HS [facility] Last Admin: 06/21/18 22:02 Dose: Not Given Ondansetron HCl (Zofran Inj) 4 mg IVP Q6H PRN PRN Reason: Nausea/Vomiting Pantoprazole Sodium (Protonix Inj) 40 mg IVP DAILY [facility] Last Admin: 06/22/18 09:41 Dose: 40 mg Potassium Chloride (Klor-Con 10) 10 meq PO DAILY [facility] Last Admin: 06/22/18 09:40 Dose: 10 meq Rivaroxaban (Xarelto) 15 mg PO DAILY [facility]; Protocol - Labs Labs: 06/22/18 06:45 06/22/18 06:45 PT 17.6 SECONDS (9.4-12.5) H 06/22/18 06:45 INR 1.56 06/22/18 06:45 APTT 36.9 Seconds (26.9-38.3) 06/22/18 06:45 - Constitutional Appears: Well, Non-toxic, No Acute Distress - Head Exam Head Exam: ATRAUMATIC, NORMAL INSPECTION, NORMOCEPHALIC - Eye Exam Eye Exam: EOMI, PERRL - ENT Exam ENT Exam: Mucous Membranes Moist - Neck Exam Neck Exam: Full ROM - Respiratory Exam Respiratory Exam: Clear to Ausculation Bilateral, NORMAL BREATHING PATTERN. absent: Decreased Breath Sounds, Rales, Rhonchi, Wheezes - Cardiovascular Exam Cardiovascular Exam: IRREGULAR RHYTHM, Regular rate, +S1, +S2. absent: Clicks, Gallop, Rubs, Murmur - GI/Abdominal Exam GI & Abdominal Exam: Soft, Normal Bowel Sounds. absent: Distended, Firm, Guarding, Tenderness - Extremities Exam Extremities Exam: Full ROM, Normal Capillary Refill, Normal Inspection - Neurological Exam Neurological Exam: Alert, Awake, CN II-XII Intact, Oriented x3 - Psychiatric Exam Psychiatric exam: Normal Affect, Normal Mood - Skin Skin Exam: Dry, Intact, Normal Color Assessment and Plan - Assessment and Plan (Free Text) Assessment: 72 year old male with past medical history of Atrial Fibrillation on Xarelto, amiodarone, and metoprolol, diabetes mellitus type II, hypertension, hyperlipidemia, hemorrhoids, and diverticulosis presented with abdominal pain and intractible nausea and vomiting. CT abdomen and pelvis on 06/20 showed distended gallbladder. Cholelithiasis without evidence of acute cholecystitis. Pancreas was shown to be unremarkable. Gallbladder ultrasound also showed cholithiasis with no evidence of cholecystitis. Plan: Abdominal pain likely 2/2 to gallstone pancreatitis -CT abdomen and pelvis 06/20: distended gallbladder. Cholelithiasis without evidence of acute cholecystitis. Pancreas was shown to be unremarkable. -Gallbladder ultrasound 06/20: cholelithiasis with no evidence of cholecystitis. -MRCP 06/21: 6 mm stone is the distal common duct. No obstruction or dilation. Multiple stones in GB -[place] admission [place] 630[address], which has trended down to 72 -AST, ALT, ALP, and bilirubin were all elevated on admission and AST and ALT are trending down at this time. Bilirubin and ALP is trending up. -Leukocytosis resolved -Afebrile -Patient fulfills 2 out of 3 criteria for pancreatitis and was thus diagnosed with likely pancreatitis -D51/2 was reduced as patient is now on CLD and due to CHF -Patient cleared for ERCP with moderate to high risk by Cardiology. -Patient for ERCP likely Wednesday. -Cholecystectomy likely to be done in outpatient setting -Xarelto held for ERCP -Continue with morphine PRN for pain -Continue with zofran PRN for nausea -General surgery, Dr. Colon, consulted for recommendations. Follow recs -GI, Dr. Bills, consulted for recommendations. Follow recs Diabetes Mellitus -HgbA1c: 8.4 -Currently on D51/2NS 50 cc/hr -Continue with low SSI Paroxysmal atrial fibrillation -EKG on admission showed atrial fibrillation but is rate controlled -Continue home amiodarone, metoprolol tartrate -Held xarelto due to ERCP likely Wednesday -Continue home aspirin Benign prostatic hyperplasia -Continue with home sildosin Coronary artery disease -Continue with home aspirin, lipitor, cozaar, and lopressor Systolic Congestive heart failure -Echo from 05/14/16: LVEF: 23.3%, four chamber dilation, RVSP 51, small pericardial effusion -Continue with home lasix, cozaar, lopressor -Continue with potassium chloride and magnesium oxide for side effects of lasix. Hypertension -Continue with home cozaar, lopressor Hyperlipidemia -Continue with home lipitor Hypothyroidism -Continue with home levothyroxine GI prophylaxis: protonix DVT prophylaxis: xarelto held, SCD Patient plan discussed with Dr. Bravo. <Rosalba Bravo - Last Filed: 06/22/18 12:35> Objective - Vital Signs/Intake and Output Vital Signs (last 24 hours): Temp Pulse Resp BP Pulse Ox 97.4 F L 63 20 153/72 H 95 06/21/18 16:44 06/22/18 09:40 06/21/18 16:44 06/22/18 09:40 06/21/18 16:44 Intake and Output: 06/22/18 06/22/18 06:59 18:59 Intake Total 1620 Balance 1620 - Medications Medications: Current Medications Amiodarone HCl (Cordarone) 200 mg PO DAILY [facility] Last Admin: 06/22/18 09:38 Dose: 200 mg Aspirin (Aspirin Chewable) 81 mg PO DAILY [facility] Last Admin: 06/22/18 10:43 Dose: Not Given Atorvastatin Calcium (Lipitor) 40 mg PO DAILY [facility] Last Admin: 06/22/18 09:40 Dose: 40 mg Dextrose (Dextrose 50% Inj) 0 ml IV STAT PRN; Protocol PRN Reason: Hypoglycemia Protocol Last Admin: 06/21/18 11:33 Dose: 50 ml Furosemide (Lasix) 40 mg PO 0800,1400 [facility] Last Admin: 06/22/18 08:40 Dose: 40 mg Lactated Ringer's (Lactated Ringer's) 1,000 mls @ 125 mls/hr IV .Q8H [facility] Last Admin: 06/21/18 01:16 Dose: 125 mls/hr Dextrose (Dextrose 5% In Water 1000 Ml) 1,000 mls @ 0 mls/hr IV .Q0M PRN; Protocol PRN Reason: Hypoglycemia Protocol Dextrose/Sodium Chloride (Dextrose 5%/0.45% Ns 1000 Ml) 1,000 mls @ 50 mls/hr IV .Q20H [facility] Last Admin: 06/22/18 09:40 Dose: 50 mls/hr Insulin Human Regular (Humulin R Low) 0 units SC ACHS [facility]; Protocol Last Admin: 06/22/18 12:07 Dose: 3 units Levothyroxine Sodium (Synthroid) 50 mcg PO 0600 [facility] Last Admin: 06/22/18 05:35 Dose: 50 mcg Losartan Potassium (Cozaar) 100 mg PO DAILY [facility] Last Admin: 06/22/18 09:39 Dose: 100 mg Magnesium Oxide (Mag-Ox) 400 mg PO DAILY [facility] Last Admin: 06/22/18 09:41 Dose: 400 mg Metoprolol Tartrate (Lopressor) 50 mg PO BID [facility] Last Admin: 06/22/18 09:40 Dose: 50 mg Morphine Sulfate (Morphine) 2 mg IVP Q6H PRN PRN Reason: Pain, severe (8-10) Non-Formulary Medication (Silodosin [Rapaflo]) 4 mg PO HS [facility] Last Admin: 06/21/18 22:02 Dose: Not Given Ondansetron HCl (Zofran Inj) 4 mg IVP Q6H PRN PRN Reason: Nausea/Vomiting Pantoprazole Sodium (Protonix Inj) 40 mg IVP DAILY [facility] Last Admin: 06/22/18 09:41 Dose: 40 mg Potassium Chloride (Klor-Con 10) 10 meq PO DAILY [facility] Last Admin: 06/22/18 09:40 Dose: 10 meq Rivaroxaban (Xarelto) 15 mg PO DAILY [facility]; Protocol - Labs Labs: 06/22/18 06:45 06/22/18 06:45 PT 17.6 SECONDS (9.4-12.5) H 06/22/18 06:45 INR 1.56 06/22/18 06:45 APTT 36.9 Seconds (26.9-38.3) 06/22/18 06:45 Attending/Attestation - Attestation I have personally seen and examined this patient.: Yes I have fully participated in the care of the patient.: Yes I have reviewed all pertinent clinical information, including history, physical exam and plan: Yes Notes (Text): 06/22/18 12:33 72 year old male with past medical history of afib on xarelto, diabetes, hyperte nsion, dyslipidemia and CAD who presented with complaint of abdominal pain with nausea/vomiting. He was found to have cholelithiasis on US/CT with elevated lipase; admitted for gallstone pancreatitis. Abdominal pain has improved and lipase has come down. MRCP was reviewed which shows CBD stone and multiple stones in gallbladder. GI and surgery are following. Xarelto is on hold for now; plan is for for ERCP. Will discuss with surgery as well regarding cholecystectomy. Patient was counselled on alcohol abstinence. Rosalba Bravo MD Hospitalist.
[2018-06-22] MEDS: SILODOSIN 4 MG PO SCH (21:38)
--- NOTE | 2018-06-23 01:47 | CP.PCM.PCO ---
<Rosalva Thakur - Last Filed: 06/23/18 01:46> Addendum Addendum: 06/23/18 01:46 OVERNIGHT RESIDENT NOTE ROSALVA THAKUR PGY1 Code start called. PCP was present at bedside. Pt was reaching over desk and slipped. He did not hit his head. Upon interview, pt reports no complaints, did not suffer injury, AxO x 3, PE wnl, vitals stable. Incident was witness, no injury occurred per nursing staff/PCP <Jose Luis Alvarez - Last Filed: 06/23/18 04:03> Attending/Attestation - Attestation I have personally seen and examined this patient.: Yes I have fully participated in the care of the patient.: Yes I have reviewed all pertinent clinical information: Yes
--- NOTE | 2018-06-23 03:31 | CP.PCM.PN ---
Subjective - Date & Time of Evaluation Date of Evaluation: 06/23/18 Time of Evaluation: 03:30 - Subjective Subjective: poor venous access: # 22 angiocath was inserted in right hand dorsum. Objective - Vital Signs/Intake and Output Vital Signs (last 24 hours): Temp Pulse Resp BP Pulse Ox 97.3 F L 64 18 167/87 H 98 06/23/18 01:28 06/23/18 01:28 06/23/18 01:28 06/23/18 01:28 06/23/18 01:28 - Medications Medications: Current Medications Amiodarone HCl (Cordarone) 200 mg PO DAILY [facility] Last Admin: 06/22/18 09:38 Dose: 200 mg Aspirin (Aspirin Chewable) 81 mg PO DAILY [facility] Last Admin: 06/22/18 10:43 Dose: Not Given Atorvastatin Calcium (Lipitor) 40 mg PO DAILY [facility] Last Admin: 06/22/18 09:40 Dose: 40 mg Dextrose (Dextrose 50% Inj) 0 ml IV STAT PRN; Protocol PRN Reason: Hypoglycemia Protocol Last Admin: 06/21/18 11:33 Dose: 50 ml Furosemide (Lasix) 40 mg PO 0800,1400 [facility] Last Admin: 06/22/18 14:34 Dose: 40 mg Lactated Ringer's (Lactated Ringer's) 1,000 mls @ 125 mls/hr IV .Q8H [facility] Last Admin: 06/21/18 01:16 Dose: 125 mls/hr Dextrose (Dextrose 5% In Water 1000 Ml) 1,000 mls @ 0 mls/hr IV .Q0M PRN; Protocol PRN Reason: Hypoglycemia Protocol Dextrose/Sodium Chloride (Dextrose 5%/0.45% Ns 1000 Ml) 1,000 mls @ 50 mls/hr IV .Q20H [facility] Last Admin: 06/22/18 23:46 Dose: 50 mls/hr Insulin Human Regular (Humulin R Low) 0 units SC ACHS [facility]; Protocol Last Admin: 06/22/18 21:37 Dose: Not Given Levothyroxine Sodium (Synthroid) 50 mcg PO 0600 [facility] Last Admin: 06/22/18 05:35 Dose: 50 mcg Losartan Potassium (Cozaar) 100 mg PO DAILY [facility] Last Admin: 06/22/18 09:39 Dose: 100 mg Magnesium Oxide (Mag-Ox) 400 mg PO DAILY [facility] Last Admin: 06/22/18 09:41 Dose: 400 mg Metoprolol Tartrate (Lopressor) 50 mg PO BID [facility] Last Admin: 06/22/18 17:36 Dose: 50 mg Morphine Sulfate (Morphine) 2 mg IVP Q6H PRN PRN Reason: Pain, severe (8-10) Non-Formulary Medication (Silodosin [Rapaflo]) 4 mg PO HS [facility] Last Admin: 06/22/18 21:38 Dose: Not Given Ondansetron HCl (Zofran Inj) 4 mg IVP Q6H PRN PRN Reason: Nausea/Vomiting Pantoprazole Sodium (Protonix Inj) 40 mg IVP DAILY [facility] Last Admin: 06/22/18 09:41 Dose: 40 mg Potassium Chloride (Klor-Con 10) 10 meq PO DAILY [facility] Last Admin: 06/22/18 09:40 Dose: 10 meq Rivaroxaban (Xarelto) 15 mg PO DAILY [facility]; Protocol - Labs Labs: 06/22/18 06:45 06/22/18 06:45 PT 17.6 SECONDS (9.4-12.5) H 06/22/18 06:45 INR 1.56 06/22/18 06:45 APTT 36.9 Seconds (26.9-38.3) 06/22/18 06:45
[2018-06-23] MEDS: Levothyroxine 50 MCG TAB PO SCH (05:51)
[2018-06-23 07:02] LABS: EOS # 0.2 (0.0-0.7); EOS % 3.6 % (1.5-5.0); HEMOGLOBIN 10.9 g/dL (14.0-18.0); LYMPH # 0.8 (1.2-3.4); LYMPH % 13.3 % (22.0-35.0); MEAN CELL VOLUME 97.2 fl (80.0-105.0); MEAN CORPUSCULAR HEMOGLOBIN 30.6 pg (25.0-35.0); MEAN CORPUSCULAR HGB CONC 31.5 g/dl (31.0-37.0); MEAN PLATELET VOLUME 11.3 fl (7.0-11.0); MONO # 0.3 (0.1-0.6); MONO % 5.9 % (1.0-6.0); RBC 3.56 10^6/uL (3.5-6.1); RED CELL DISTRIBUTION WIDTH 15.7 % (11.5-14.5); WHITE BLOOD COUNT 5.8 10^3/uL (4.5-11.0)
[2018-06-23 07:53] LABS: ALBUMIN 3.7 g/dL (3.0-4.8); CALCIUM 8.6 mg/dL (8.4-10.5)
--- NOTE | 2018-06-23 08:55 | CP.PCM.PN ---
Subjective - Date & Time of Evaluation Date of Evaluation: 06/23/18 Time of Evaluation: 06:58 - Subjective Subjective: Awake, alert, sitting at side of bed,no distress Reason for consultation and follow up: Pre-op risk stratification for surgery, cardiac clearance, history of atrial fibrillation on Xarelto and Amiodarone, history of coronary artery disease Seen and examined by me and Dr. Cullen Objective - Vital Signs/Intake and Output Vital Signs (last 24 hours): Temp Pulse Resp BP Pulse Ox 97.3 F L 64 18 167/87 H 98 06/23/18 01:28 06/23/18 01:28 06/23/18 01:28 06/23/18 01:28 06/23/18 01:28 Intake and Output: 06/23/18 06/23/18 06:59 18:59 Intake Total 720 Output Total 800 Balance -80 - Medications Medications: Current Medications Amiodarone HCl (Cordarone) 200 mg PO DAILY [facility] Last Admin: 06/22/18 09:38 Dose: 200 mg Aspirin (Aspirin Chewable) 81 mg PO DAILY [facility] Last Admin: 06/22/18 10:43 Dose: Not Given Atorvastatin Calcium (Lipitor) 40 mg PO DAILY [facility] Last Admin: 06/22/18 09:40 Dose: 40 mg Dextrose (Dextrose 50% Inj) 0 ml IV STAT PRN; Protocol PRN Reason: Hypoglycemia Protocol Last Admin: 06/21/18 11:33 Dose: 50 ml Furosemide (Lasix) 40 mg PO 0800,1400 [facility] Last Admin: 06/22/18 14:34 Dose: 40 mg Lactated Ringer's (Lactated Ringer's) 1,000 mls @ 125 mls/hr IV .Q8H [facility] Last Admin: 06/21/18 01:16 Dose: 125 mls/hr Dextrose (Dextrose 5% In Water 1000 Ml) 1,000 mls @ 0 mls/hr IV .Q0M PRN; Protocol PRN Reason: Hypoglycemia Protocol Dextrose/Sodium Chloride (Dextrose 5%/0.45% Ns 1000 Ml) 1,000 mls @ 50 mls/hr IV .Q20H [facility] Last Admin: 06/22/18 23:46 Dose: 50 mls/hr Insulin Human Regular (Humulin R Low) 0 units SC ACHS [facility]; Protocol Last Admin: 06/22/18 21:37 Dose: Not Given Levothyroxine Sodium (Synthroid) 50 mcg PO 0600 [facility] Last Admin: 06/23/18 05:51 Dose: 50 mcg Losartan Potassium (Cozaar) 100 mg PO DAILY [facility] Last Admin: 06/22/18 09:39 Dose: 100 mg Magnesium Oxide (Mag-Ox) 400 mg PO DAILY [facility] Last Admin: 06/22/18 09:41 Dose: 400 mg Metoprolol Tartrate (Lopressor) 50 mg PO BID [facility] Last Admin: 06/22/18 17:36 Dose: 50 mg Morphine Sulfate (Morphine) 2 mg IVP Q6H PRN PRN Reason: Pain, severe (8-10) Non-Formulary Medication (Silodosin [Rapaflo]) 4 mg PO HS [facility] Last Admin: 06/22/18 21:38 Dose: Not Given Ondansetron HCl (Zofran Inj) 4 mg IVP Q6H PRN PRN Reason: Nausea/Vomiting Pantoprazole Sodium (Protonix Inj) 40 mg IVP DAILY [facility] Last Admin: 06/22/18 09:41 Dose: 40 mg Potassium Chloride (Klor-Con 10) 10 meq PO DAILY [facility] Last Admin: 06/22/18 09:40 Dose: 10 meq Rivaroxaban (Xarelto) 15 mg PO DAILY [facility]; Protocol - Labs Labs: 06/23/18 06:30 06/23/18 06:30 PT 17.6 SECONDS (9.4-12.5) H 06/22/18 06:45 INR 1.56 06/22/18 06:45 APTT 36.9 Seconds (26.9-38.3) 06/22/18 06:45 - Constitutional Appears: Non-toxic, No Acute Distress - Head Exam Head Exam: NORMAL INSPECTION, NORMOCEPHALIC - Eye Exam Eye Exam: Normal appearance Pupil Exam: NORMAL ACCOMODATION - ENT Exam ENT Exam: Mucous Membranes Moist, Normal Exam - Respiratory Exam Respiratory Exam: Decreased Breath Sounds, Clear to Ausculation Bilateral, NORMAL BREATHING PATTERN - Cardiovascular Exam Cardiovascular Exam: +S1, +S2 - GI/Abdominal Exam GI & Abdominal Exam: Soft, Normal Bowel Sounds - Extremities Exam Extremities Exam: Full ROM Additional comments: 2+ edema - Neurological Exam Neurological Exam: Alert, Awake, Oriented x3 - Psychiatric Exam Psychiatric exam: Normal Affect, Normal Mood - Skin Skin Exam: Dry, Normal Color, Warm Assessment and Plan - Assessment and Plan (Free Text) Assessment: A 72 year old obese male who came in to the ER due to complaints of abdominal pain. Admitted for acute cholecystitis. Ultrasound of the gallbladder showed cholelithiasis. History of chronic atrial fibrillation on Xarelto and Amiodarone, diabetes, hypertension, hyperlipidemia, hypothyroidism , coronary artery disease with coronary artery bypass surgery twice (22 years ago and 15 years ago). Recent echo done at Dr. Aponte's office (3 days ago) showed LVEF 25%, mild mitral regurgitation, mild to moderate tricuspid regurgitation, mild to moderate aortic stenosis. Had MRCP and showed multiple stones in the gallbladder. No distress. GI on consult, work up in progress. Cleared for procedure with moderate to high risk considering co-morbidities. For ERCP tomorrow. Had episode of fall energy economist with no apparent injuries or fracture. Cardiac status stable. No evidence of heart failure. Plan: Post fall energy economist, No distress. For ERCP tomorrow Cleared for procedure with moderate to high risk Cardiac status stable. Heart rate controlled Blood pressure stable On Amiodarone 200 mg daily, ASA 81 mg daily, Lipitor 40 mg daily, Lasix 40 mg BID, Synthroid 50 mcg daily, Cozaar 100 mg daily Lopressor 50 mg BID, Potassium 10 meq daily, Xarelto 15 mg daily Continue current treatment Continue current medications GI on consult, work up in progress Continue IV fluids for hydration Fall precaution Glucose control Will follow up Plan and treatment discussed with Dr. Cullen
--- NOTE | 2018-06-23 09:34 | CP.PCM.PN ---
<Peter Buenrostro - Last Filed: 06/23/18 09:32> Subjective - Date & Time of Evaluation Date of Evaluation: 06/23/18 Time of Evaluation: 08:30 - Subjective Subjective: Peter Buenrostro- Internal Medicine Resident- Progress Note on Behalf of Dr. Bills Subjective: Patient seen and examined at bedside. Resting comfortably in bed. No acute overnight events. Patient states abdominal pain has resolved. Requests ad vancement in diet. Offers no new complaints at this time. Denies fever, chills, nausea, vomiting, diarrhea, constipation, and urinary symptoms. 12-point review of systems negative except as indicated in the HPI Physical Examination: - Constitutional Appears: Non-toxic, No Acute Distress - Eye Exam Eye Exam: EOMI, PERRL - ENT Exam ENT Exam: Mucous Membranes Moist - Respiratory Exam Respiratory Exam: Clear to Auscultation Bilateral. absent: Rales, Rhonchi, Wheezes - Cardiovascular Exam Cardiovascular Exam: RRR, +S1, +S2 - GI/Abdominal Exam GI & Abdominal Exam: Normal Bowel Sounds, Soft, Tenderness. absent: Distended, Firm, Guarding, Mass, Organomegaly, Rigid - Extremities Exam Extremities exam: Positive for: normal inspection. Negative for: pedal edema - Neurological Exam Neurological exam: Alert, Oriented x3 - Psychiatric Exam Psychiatric exam: Normal Affect, Normal Mood - Skin Skin Exam: Dry, Warm Assessment and Plan: Patient is a 72 year old male with a PMHx significant for atrial fibrillation on Xarelto, DM2, HTN, HLD and hypothyroidism who was admitted for evaluation and treatment of abdominal pain. -Cholelithiasis -Choledocolithiasis -Elevated LFTs- downtrending -KYLE -Atrial fibrillation on Xarelto (HELD)- must hold for 72 hours prior to pr ocedure -MRCP ordered and reviewed- There is a 6 mm stone in the distal common duct. There is no evidence of biliary obstruction or dilatation. Multiple stones are seen in the gallbladder -LFTs with direct hyperbilirubinemia could reflect biliary obstruction -Xarelto is currently held -ERCP on 06/24/2018 -continue liquid diet, keep NPO after midnight Patient seen, case discussed with, and plan approved by Dr. Bills Objective - Vital Signs/Intake and Output Vital Signs (last 24 hours): Temp Pulse Resp BP Pulse Ox 97.3 F L 64 18 167/87 H 98 06/23/18 01:28 06/23/18 01:28 06/23/18 01:28 06/23/18 01:28 06/23/18 01:28 Intake and Output: 06/23/18 06/23/18 06:59 18:59 Intake Total 720 Output Total 800 Balance -80 - Medications Medications: Current Medications Amiodarone HCl (Cordarone) 200 mg PO DAILY [facility] Last Admin: 06/22/18 09:38 Dose: 200 mg Aspirin (Aspirin Chewable) 81 mg PO DAILY [facility] Last Admin: 06/22/18 10:43 Dose: Not Given Atorvastatin Calcium (Lipitor) 40 mg PO DAILY [facility] Last Admin: 06/22/18 09:40 Dose: 40 mg Dextrose (Dextrose 50% Inj) 0 ml IV STAT PRN; Protocol PRN Reason: Hypoglycemia Protocol Last Admin: 06/21/18 11:33 Dose: 50 ml Furosemide (Lasix) 40 mg PO 0800,1400 [facility] Last Admin: 06/22/18 14:34 Dose: 40 mg Lactated Ringer's (Lactated Ringer's) 1,000 mls @ 125 mls/hr IV .Q8H [facility] Last Admin: 06/21/18 01:16 Dose: 125 mls/hr Dextrose (Dextrose 5% In Water 1000 Ml) 1,000 mls @ 0 mls/hr IV .Q0M PRN; Protocol PRN Reason: Hypoglycemia Protocol Dextrose/Sodium Chloride (Dextrose 5%/0.45% Ns 1000 Ml) 1,000 mls @ 50 mls/hr IV .Q20H [facility] Last Admin: 06/22/18 23:46 Dose: 50 mls/hr Insulin Human Regular (Humulin R Low) 0 units SC ACHS [facility]; Protocol Last Admin: 06/22/18 21:37 Dose: Not Given Levothyroxine Sodium (Synthroid) 50 mcg PO 0600 [facility] Last Admin: 06/23/18 05:51 Dose: 50 mcg Losartan Potassium (Cozaar) 100 mg PO DAILY [facility] Last Admin: 06/22/18 09:39 Dose: 100 mg Magnesium Oxide (Mag-Ox) 400 mg PO DAILY [facility] Last Admin: 06/22/18 09:41 Dose: 400 mg Metoprolol Tartrate (Lopressor) 50 mg PO BID [facility] Last Admin: 06/22/18 17:36 Dose: 50 mg Morphine Sulfate (Morphine) 2 mg IVP Q6H PRN PRN Reason: Pain, severe (8-10) Non-Formulary Medication (Silodosin [Rapaflo]) 4 mg PO HS [facility] Last Admin: 06/22/18 21:38 Dose: Not Given Ondansetron HCl (Zofran Inj) 4 mg IVP Q6H PRN PRN Reason: Nausea/Vomiting Pantoprazole Sodium (Protonix Inj) 40 mg IVP DAILY [facility] Last Admin: 06/22/18 09:41 Dose: 40 mg Potassium Chloride (Klor-Con 10) 10 meq PO DAILY [facility] Last Admin: 06/22/18 09:40 Dose: 10 meq Rivaroxaban (Xarelto) 15 mg PO DAILY [facility]; Protocol - Labs Labs: 06/23/18 06:30 06/23/18 06:30 PT 17.6 SECONDS (9.4-12.5) H 06/22/18 06:45 INR 1.56 06/22/18 06:45 APTT 36.9 Seconds (26.9-38.3) 06/22/18 06:45 <SanjuCrystal slater V - Last Filed: 06/23/18 22:49> Objective - Vital Signs/Intake and Output Vital Signs (last 24 hours): Temp Pulse Resp BP Pulse Ox 97.8 F 60 19 149/71 99 06/23/18 17:21 06/23/18 17:26 06/23/18 17:21 06/23/18 17:26 06/23/18 17:21 - Medications Medications: Current Medications Amiodarone HCl (Cordarone) 200 mg PO DAILY [facility] Last Admin: 06/23/18 09:47 Dose: 200 mg Aspirin (Aspirin Chewable) 81 mg PO DAILY [facility] Last Admin: 06/23/18 09:46 Dose: 81 mg Atorvastatin Calcium (Lipitor) 40 mg PO DAILY [facility] Last Admin: 06/23/18 09:49 Dose: 40 mg Dextrose (Dextrose 50% Inj) 0 ml IV STAT PRN; Protocol PRN Reason: Hypoglycemia Protocol Last Admin: 06/21/18 11:33 Dose: 50 ml Furosemide (Lasix) 40 mg PO 0800,1400 [facility] Last Admin: 06/23/18 13:53 Dose: 40 mg Lactated Ringer's (Lactated Ringer's) 1,000 mls @ 125 mls/hr IV .Q8H [facility] Last Admin: 06/21/18 01:16 Dose: 125 mls/hr Dextrose (Dextrose 5% In Water 1000 Ml) 1,000 mls @ 0 mls/hr IV .Q0M PRN; Protocol PRN Reason: Hypoglycemia Protocol Dextrose/Sodium Chloride (Dextrose 5%/0.45% Ns 1000 Ml) 1,000 mls @ 50 mls/hr IV .Q20H [facility] Last Admin: 06/22/18 23:46 Dose: 50 mls/hr Insulin Human Regular (Humulin R Low) 0 units SC ACHS [facility]; Protocol Last Admin: 06/23/18 21:25 Dose: Not Given Levothyroxine Sodium (Synthroid) 50 mcg PO 0600 [facility] Last Admin: 06/23/18 05:51 Dose: 50 mcg Losartan Potassium (Cozaar) 100 mg PO DAILY [facility] Last Admin: 06/23/18 09:47 Dose: 100 mg Magnesium Oxide (Mag-Ox) 400 mg PO DAILY [facility] Last Admin: 06/23/18 09:50 Dose: 400 mg Metoprolol Tartrate (Lopressor) 50 mg PO BID [facility] Last Admin: 06/23/18 17:26 Dose: 50 mg Morphine Sulfate (Morphine) 2 mg IVP Q6H PRN PRN Reason: Pain, severe (8-10) Non-Formulary Medication (Silodosin [Rapaflo]) 4 mg PO HS [facility] Last Admin: 06/22/18 21:38 Dose: Not Given Ondansetron HCl (Zofran Inj) 4 mg IVP Q6H PRN PRN Reason: Nausea/Vomiting Pantoprazole Sodium (Protonix Inj) 40 mg IVP DAILY [facility] Last Admin: 06/23/18 09:50 Dose: 40 mg Potassium Chloride (Klor-Con 10) 10 meq PO DAILY [facility] Last Admin: 06/23/18 09:48 Dose: 10 meq Rivaroxaban (Xarelto) 15 mg PO DAILY [facility]; Protocol - Labs Labs: 06/23/18 06:30 06/23/18 06:30 PT 12.9 SECONDS (9.4-12.5) H 06/23/18 11:00 INR 1.14 06/23/18 11:00 APTT 36.9 Seconds (26.9-38.3) 06/22/18 06:45 Attending/Attestation - Attestation I have personally seen and examined this patient.: Yes I have fully participated in the care of the patient.: Yes I have reviewed all pertinent clinical information, including history, physical exam and plan: Yes Notes (Text): This is an addendum to the GI progress note dictated by the resident. The patient was seen and evaluated along with resident earlier. LFT shows upward trend. Coagulation profile improved. Patient denies any abdominal pain. Scheduled for ERCP tomorrow 06/23/18 22:48
[2018-06-23] MEDS: Insulin Reg-LOW-Coverage SC SCH ×4 (09:48→21:25)
[2018-06-23] MEDS: Potassium Chloride 10 mEq ER Tab PO SCH (09:48)
[2018-06-23] MEDS: Magnesium Oxide 400 mg Tab UD PO SCH (09:50)
[2018-06-23 11:19] LABS: INR 1.14; PROTHROMBIN TIME 12.9 SECONDS (9.4-12.5)
--- NOTE | 2018-06-23 12:43 | CP.PCM.PCO ---
Physician Communication Note - Physician Communication Note Physician Communication Note: pt seen and examined at bedside, for ercp tomorrow afternoon, will follow
--- NOTE | 2018-06-23 13:28 | CP.PCM.PN ---
<Bharath Honeycutt - Last Filed: 06/23/18 13:25> Subjective - Date & Time of Evaluation Date of Evaluation: 06/23/18 Time of Evaluation: 13:25 - Subjective Subjective: Bharath Honeycutt, PGY-1, Internal Medicine Progress Note for Dr. Bravo Patient seen and evaluated at bedside. Patient had no acute overnight events except for [place]. He did not hit his head at that time and did not have any symptoms. Patient denies any abdominal pain, nausea, vomiting, constipation, diarrhea at this time. 12-point ROS was unremarkable except for what was mentioned above. Objective - Vital Signs/Intake and Output Vital Signs (last 24 hours): Temp Pulse Resp BP Pulse Ox 98.1 F 62 16 160/82 H 97 06/23/18 06:00 06/23/18 09:49 06/23/18 06:00 06/23/18 09:49 06/23/18 06:00 Intake and Output: 06/23/18 06/23/18 06:59 18:59 Intake Total 720 Output Total 800 Balance -80 - Medications Medications: Current Medications Amiodarone HCl (Cordarone) 200 mg PO DAILY [facility] Last Admin: 06/23/18 09:47 Dose: 200 mg Aspirin (Aspirin Chewable) 81 mg PO DAILY [facility] Last Admin: 06/23/18 09:46 Dose: 81 mg Atorvastatin Calcium (Lipitor) 40 mg PO DAILY [facility] Last Admin: 06/23/18 09:49 Dose: 40 mg Dextrose (Dextrose 50% Inj) 0 ml IV STAT PRN; Protocol PRN Reason: Hypoglycemia Protocol Last Admin: 06/21/18 11:33 Dose: 50 ml Furosemide (Lasix) 40 mg PO 0800,1400 [facility] Last Admin: 06/23/18 09:49 Dose: 40 mg Lactated Ringer's (Lactated Ringer's) 1,000 mls @ 125 mls/hr IV .Q8H [facility] Last Admin: 06/21/18 01:16 Dose: 125 mls/hr Dextrose (Dextrose 5% In Water 1000 Ml) 1,000 mls @ 0 mls/hr IV .Q0M PRN; Protocol PRN Reason: Hypoglycemia Protocol Dextrose/Sodium Chloride (Dextrose 5%/0.45% Ns 1000 Ml) 1,000 mls @ 50 mls/hr IV .Q20H [facility] Last Admin: 06/22/18 23:46 Dose: 50 mls/hr Insulin Human Regular (Humulin R Low) 0 units SC ACHS [facility]; Protocol Last Admin: 06/23/18 12:11 Dose: 3 units Levothyroxine Sodium (Synthroid) 50 mcg PO 0600 [facility] Last Admin: 06/23/18 05:51 Dose: 50 mcg Losartan Potassium (Cozaar) 100 mg PO DAILY [facility] Last Admin: 06/23/18 09:47 Dose: 100 mg Magnesium Oxide (Mag-Ox) 400 mg PO DAILY [facility] Last Admin: 06/23/18 09:50 Dose: 400 mg Metoprolol Tartrate (Lopressor) 50 mg PO BID [facility] Last Admin: 06/23/18 09:49 Dose: 50 mg Morphine Sulfate (Morphine) 2 mg IVP Q6H PRN PRN Reason: Pain, severe (8-10) Non-Formulary Medication (Silodosin [Rapaflo]) 4 mg PO HS [facility] Last Admin: 06/22/18 21:38 Dose: Not Given Ondansetron HCl (Zofran Inj) 4 mg IVP Q6H PRN PRN Reason: Nausea/Vomiting Pantoprazole Sodium (Protonix Inj) 40 mg IVP DAILY [facility] Last Admin: 06/23/18 09:50 Dose: 40 mg Potassium Chloride (Klor-Con 10) 10 meq PO DAILY [facility] Last Admin: 06/23/18 09:48 Dose: 10 meq Rivaroxaban (Xarelto) 15 mg PO DAILY [facility]; Protocol - Labs Labs: 06/23/18 06:30 06/23/18 06:30 PT 12.9 SECONDS (9.4-12.5) H 06/23/18 11:00 INR 1.14 06/23/18 11:00 APTT 36.9 Seconds (26.9-38.3) 06/22/18 06:45 - Constitutional Appears: Well, Non-toxic, No Acute Distress - Head Exam Head Exam: ATRAUMATIC, NORMAL INSPECTION, NORMOCEPHALIC - Eye Exam Eye Exam: EOMI, PERRL - ENT Exam ENT Exam: Mucous Membranes Moist - Neck Exam Neck Exam: Full ROM - Respiratory Exam Respiratory Exam: Clear to Ausculation Bilateral, NORMAL BREATHING PATTERN. absent: Decreased Breath Sounds, Rales, Rhonchi, Wheezes - Cardiovascular Exam Cardiovascular Exam: IRREGULAR RHYTHM, Regular rate, +S1, +S2. absent: Clicks, Gallop, Rubs, Murmur - GI/Abdominal Exam GI & Abdominal Exam: Soft, Normal Bowel Sounds. absent: Distended, Firm, Guarding, Tenderness - Extremities Exam Extremities Exam: Full ROM, Normal Capillary Refill, Normal Inspection - Neurological Exam Neurological Exam: Alert, Awake, CN II-XII Intact, Oriented x3 - Psychiatric Exam Psychiatric exam: Normal Affect, Normal Mood - Skin Skin Exam: Dry, Intact, Normal Color Assessment and Plan - Assessment and Plan (Free Text) Assessment: 72 year old male with past medical history of Atrial Fibrillation on Xarelto, amiodarone, and metoprolol, diabetes mellitus type II, hypertension, hyperlipidemia, hemorrhoids, and diverticulosis presented with abdominal pain and intractible nausea and vomiting. CT abdomen and pelvis on 06/20 showed distended gallbladder. Cholelithiasis without evidence of acute cholecystitis. Pancreas was shown to be unremarkable. Gallbladder ultrasound also showed cholithiasis with no evidence of cholecystitis. Patient was admitted for gallstone pancreatitis. Plan: Abdominal pain likely 2/2 to gallstone pancreatitis -CT abdomen and pelvis 06/20: distended gallbladder. Cholelithiasis without evidence of acute cholecystitis. Pancreas was shown to be unremarkable. -Gallbladder ultrasound 06/20: cholelithiasis with no evidence of cholecystitis. -MRCP 06/21: 6 mm stone is the distal common duct. No obstruction or dilation. Multiple stones in GB -[place] admission [place] [address]63, which has trended down to 113 -AST, ALT, ALP, and bilirubin were all elevated on admission. AST and ALT elevation have resolved. Bilirubin and ALP is trending up. -Leukocytosis resolved -Afebrile -Patient fulfills 2 out of 3 criteria for pancreatitis and was thus diagnosed with likely pancreatitis -D51/2 stopped as patient is now on CLD and due to CHF -Patient cleared for ERCP with moderate to high risk by Cardiology. -Patient for ERCP likely Wednesday. -Cholecystectomy likely to be done in outpatient setting -Xarelto held for ERCP -Continue with morphine PRN for pain -Continue with zofran PRN for nausea -General surgery, Dr. Colon, consulted for recommendations. Follow recs -GI, Dr. Bills, consulted for recommendations. Follow recs Diabetes Mellitus -HgbA1c: 8.4 -Stopped D51/2NS -Continue with low SSI Paroxysmal atrial fibrillation -EKG on admission showed atrial fibrillation but is rate controlled -Continue home amiodarone, metoprolol tartrate -Held xarelto due to ERCP likely Wednesday -Continue home aspirin Benign prostatic hyperplasia -Continue with home sildosin Coronary artery disease -Continue with home aspirin, lipitor, cozaar, and lopressor Systolic Congestive heart failure -Echo from 05/14/16: LVEF: 23.3%, four chamber dilation, RVSP 51, small pericardial effusion -Continue with home lasix, cozaar, lopressor -Continue with potassium chloride and magnesium oxide for side effects of lasix. Hypertension -Continue with home cozaar, lopressor Hyperlipidemia -Continue with home lipitor Hypothyroidism -Continue with home levothyroxine GI prophylaxis: protonix DVT prophylaxis: xarelto held, SCD Patient plan discussed with Dr. Bravo. <Rosalba Bravo - Last Filed: 06/23/18 13:43> Objective - Vital Signs/Intake and Output Vital Signs (last 24 hours): Temp Pulse Resp BP Pulse Ox 98.1 F 62 16 160/82 H 97 06/23/18 06:00 06/23/18 09:49 06/23/18 06:00 06/23/18 09:49 06/23/18 06:00 Intake and Output: 06/23/18 06/23/18 06:59 18:59 Intake Total 720 Output Total 800 Balance -80 - Medications Medications: Current Medications Amiodarone HCl (Cordarone) 200 mg PO DAILY [facility] Last Admin: 06/23/18 09:47 Dose: 200 mg Aspirin (Aspirin Chewable) 81 mg PO DAILY [facility] Last Admin: 06/23/18 09:46 Dose: 81 mg Atorvastatin Calcium (Lipitor) 40 mg PO DAILY [facility] Last Admin: 06/23/18 09:49 Dose: 40 mg Dextrose (Dextrose 50% Inj) 0 ml IV STAT PRN; Protocol PRN Reason: Hypoglycemia Protocol Last Admin: 06/21/18 11:33 Dose: 50 ml Furosemide (Lasix) 40 mg PO 0800,1400 [facility] Last Admin: 06/23/18 09:49 Dose: 40 mg Lactated Ringer's (Lactated Ringer's) 1,000 mls @ 125 mls/hr IV .Q8H [facility] Last Admin: 06/21/18 01:16 Dose: 125 mls/hr Dextrose (Dextrose 5% In Water 1000 Ml) 1,000 mls @ 0 mls/hr IV .Q0M PRN; Protocol PRN Reason: Hypoglycemia Protocol Dextrose/Sodium Chloride (Dextrose 5%/0.45% Ns 1000 Ml) 1,000 mls @ 50 mls/hr IV .Q20H [facility] Last Admin: 06/22/18 23:46 Dose: 50 mls/hr Insulin Human Regular (Humulin R Low) 0 units SC ACHS [facility]; Protocol Last Admin: 06/23/18 12:11 Dose: 3 units Levothyroxine Sodium (Synthroid) 50 mcg PO 0600 [facility] Last Admin: 06/23/18 05:51 Dose: 50 mcg Losartan Potassium (Cozaar) 100 mg PO DAILY [facility] Last Admin: 06/23/18 09:47 Dose: 100 mg Magnesium Oxide (Mag-Ox) 400 mg PO DAILY [facility] Last Admin: 06/23/18 09:50 Dose: 400 mg Metoprolol Tartrate (Lopressor) 50 mg PO BID [facility] Last Admin: 06/23/18 09:49 Dose: 50 mg Morphine Sulfate (Morphine) 2 mg IVP Q6H PRN PRN Reason: Pain, severe (8-10) Non-Formulary Medication (Silodosin [Rapaflo]) 4 mg PO HS [facility] Last Admin: 06/22/18 21:38 Dose: Not Given Ondansetron HCl (Zofran Inj) 4 mg IVP Q6H PRN PRN Reason: Nausea/Vomiting Pantoprazole Sodium (Protonix Inj) 40 mg IVP DAILY [facility] Last Admin: 06/23/18 09:50 Dose: 40 mg Potassium Chloride (Klor-Con 10) 10 meq PO DAILY [facility] Last Admin: 06/23/18 09:48 Dose: 10 meq Rivaroxaban (Xarelto) 15 mg PO DAILY [facility]; Protocol - Labs Labs: 06/23/18 06:30 06/23/18 06:30 PT 12.9 SECONDS (9.4-12.5) H 06/23/18 11:00 INR 1.14 06/23/18 11:00 APTT 36.9 Seconds (26.9-38.3) 06/22/18 06:45 Attending/Attestation - Attestation I have personally seen and examined this patient.: Yes I have fully participated in the care of the patient.: Yes I have reviewed all pertinent clinical information, including history, physical exam and plan: Yes Notes (Text): 06/23/18 13:41 72 year old male with past medical history of afib on xarelto, diabetes, hypertension, dyslipidemia and CAD who presented with complaint of abdominal pain with nausea/vomiting. He was found to have cholelithiasis on US/CT with elevated lipase; admitted for gallstone pancreatitis. Abdominal pain has improved and lipase has come down. MRCP showed CBD stone and multiple stones in gallbladder. GI and surgery are following. Xarelto is on hold for now; plan is for for ERCP tomorrow as per GI and outpatient laparoscopic cholecystectomy as per surgery. Patient was counselled on alcohol abstinence. Rosalba Bravo MD Hospitalist.
[2018-06-24] MEDS: Levothyroxine 50 MCG TAB PO SCH (05:53)
[2018-06-24 09:26] LABS: BASO # 0.01 K/mm3 (0.0-2.0); BASO % 0.2 % (0.0-3.0); EOS # 0.3 (0.0-0.7); EOS % 4.1 % (1.5-5.0); HEMOGLOBIN 11.4 g/dL (14.0-18.0); LYMPH # 0.9 (1.2-3.4); LYMPH % 14.6 % (22.0-35.0); MEAN CORPUSCULAR HGB CONC 31.9 g/dl (31.0-37.0); MEAN PLATELET VOLUME 11.7 fl (7.0-11.0); MONO # 0.5 (0.1-0.6); MONO % 8.5 % (1.0-6.0); RBC 3.68 10^6/uL (3.5-6.1); RED CELL DISTRIBUTION WIDTH 15.8 % (11.5-14.5); WHITE BLOOD COUNT 6.1 10^3/uL (4.5-11.0)
[2018-06-24] MEDS: Insulin Reg-LOW-Coverage SC SCH ×2 (09:32→17:20)
[2018-06-24 09:37] LABS: ALBUMIN 3.7 g/dL (3.0-4.8)
--- NOTE | 2018-06-24 13:32 | CP.PCM.PCO ---
Physician Communication Note - Physician Communication Note Physician Communication Note: pt for ercp today - will follow results
[2018-06-24] MEDS ORDERED: Iohexol 240 (50 ml) ONE (13:37)
[2018-06-24] MEDS ORDERED: Indomethacin 50 MG Suppository PR ONE (13:38)
--- NOTE | 2018-06-24 14:51 | CP.PCM.PN ---
<Bharath Honeycutt - Last Filed: 06/24/18 14:45> Subjective - Date & Time of Evaluation Date of Evaluation: 06/24/18 Time of Evaluation: 14:45 - Subjective Subjective: Bhartah Honeycutt, PGY-1, Internal Medicine Progress Note for Dr. Bravo Patient seen and evaluated at bedside. Patient had no acute overnight events. Patient denies abdominal pain, nausea, vomiting, constipation, or diarrhea. 12- point ROS was unremarkable except for what was mentioned above. 12-point ROS was unremarkable except for what was mentioned above. Objective - Vital Signs/Intake and Output Vital Signs (last 24 hours): Temp Pulse Resp BP Pulse Ox 98.2 F 67 24 165/79 H 98 06/24/18 13:55 06/24/18 13:55 06/24/18 13:55 06/24/18 13:55 06/24/18 13:55 Intake and Output: 06/24/18 06/24/18 06:59 18:59 Intake Total 120 Output Total 100 Balance 20 - Medications Medications: Current Medications Amiodarone HCl (Cordarone) 200 mg PO DAILY [facility] Last Admin: 06/24/18 09:36 Dose: 200 mg Aspirin (Aspirin Chewable) 81 mg PO DAILY [facility] Last Admin: 06/24/18 09:32 Dose: Not Given Atorvastatin Calcium (Lipitor) 40 mg PO DAILY [facility] Last Admin: 06/23/18 09:49 Dose: 40 mg Dextrose (Dextrose 50% Inj) 0 ml IV STAT PRN; Protocol PRN Reason: Hypoglycemia Protocol Last Admin: 06/21/18 11:33 Dose: 50 ml Furosemide (Lasix) 40 mg PO 0800,1400 [facility] Last Admin: 06/23/18 13:53 Dose: 40 mg Lactated Ringer's (Lactated Ringer's) 1,000 mls @ 125 mls/hr IV .Q8H [facility] Last Admin: 06/21/18 01:16 Dose: 125 mls/hr Dextrose (Dextrose 5% In Water 1000 Ml) 1,000 mls @ 0 mls/hr IV .Q0M PRN; Protocol PRN Reason: Hypoglycemia Protocol Dextrose/Sodium Chloride (Dextrose 5%/0.45% Ns 1000 Ml) 1,000 mls @ 50 mls/hr IV .Q20H [facility] Last Admin: 06/22/18 23:46 Dose: 50 mls/hr Insulin Human Regular (Humulin R Low) 0 units SC ACHS [facility]; Protocol Last Admin: 06/24/18 09:32 Dose: Not Given Levothyroxine Sodium (Synthroid) 50 mcg PO 0600 [facility] Last Admin: 06/24/18 05:53 Dose: Not Given Losartan Potassium (Cozaar) 100 mg PO DAILY [facility] Last Admin: 06/24/18 09:37 Dose: 100 mg Magnesium Oxide (Mag-Ox) 400 mg PO DAILY [facility] Last Admin: 06/23/18 09:50 Dose: 400 mg Metoprolol Tartrate (Lopressor) 50 mg PO BID [facility] Last Admin: 06/24/18 09:38 Dose: 50 mg Morphine Sulfate (Morphine) 2 mg IVP Q6H PRN PRN Reason: Pain, severe (8-10) Non-Formulary Medication (Silodosin [Rapaflo]) 4 mg PO HS [facility] Last Admin: 06/22/18 21:38 Dose: Not Given Ondansetron HCl (Zofran Inj) 4 mg IVP Q6H PRN PRN Reason: Nausea/Vomiting Pantoprazole Sodium (Protonix Inj) 40 mg IVP DAILY [facility] Last Admin: 06/24/18 09:39 Dose: 40 mg Potassium Chloride (Klor-Con 10) 10 meq PO DAILY [facility] Last Admin: 06/23/18 09:48 Dose: 10 meq Rivaroxaban (Xarelto) 15 mg PO DAILY [facility]; Protocol - Labs Labs: 06/24/18 09:10 06/24/18 09:10 PT 12.9 SECONDS (9.4-12.5) H 06/23/18 11:00 INR 1.14 06/23/18 11:00 APTT 36.9 Seconds (26.9-38.3) 06/22/18 06:45 - Constitutional Appears: Well, Non-toxic, No Acute Distress - Head Exam Head Exam: ATRAUMATIC, NORMAL INSPECTION, NORMOCEPHALIC - Eye Exam Eye Exam: EOMI, PERRL - ENT Exam ENT Exam: Mucous Membranes Moist - Neck Exam Neck Exam: Full ROM - Respiratory Exam Respiratory Exam: Clear to Ausculation Bilateral, NORMAL BREATHING PATTERN. absent: Decreased Breath Sounds, Rales, Rhonchi, Wheezes - Cardiovascular Exam Cardiovascular Exam: IRREGULAR RHYTHM, Regular rate, +S1, +S2. absent: Clicks, Gallop, Rubs, Murmur - GI/Abdominal Exam GI & Abdominal Exam: Soft, Normal Bowel Sounds. absent: Distended, Firm, Guarding, Tenderness - Extremities Exam Extremities Exam: Full ROM, Normal Capillary Refill, Normal Inspection - Neurological Exam Neurological Exam: Alert, Awake, CN II-XII Intact, Oriented x3 - Psychiatric Exam Psychiatric exam: Normal Affect, Normal Mood - Skin Skin Exam: Dry, Intact, Normal Color Assessment and Plan - Assessment and Plan (Free Text) Assessment: 72 year old male with past medical history of Atrial Fibrillation on Xarelto, amiodarone, and metoprolol, diabetes mellitus type II, hypertension, hyperlipidemia, hemorrhoids, and diverticulosis presented with abdominal pain and intractible nausea and vomiting. CT abdomen and pelvis on 06/20 showed distended gallbladder. Cholelithiasis without evidence of acute cholecystitis. Pancreas was shown to be unremarkable. Gallbladder ultrasound also showed cholithiasis with no evidence of cholecystitis. MRCP on 06/21 showed 6 mm stone is the distal common duct. No obstruction or dilation. Multiple stones in GB. Patient was admitted for gallstone pancreatitis. Plan: Abdominal pain likely 2/2 to gallstone pancreatitis -CT abdomen and pelvis 06/20: distended gallbladder. Cholelithiasis without evidence of acute cholecystitis. Pancreas was shown to be unremarkable. -Gallbladder ultrasound 06/20: cholelithiasis with no evidence of cholecystitis. -MRCP 06/21: 6 mm stone is the distal common duct. No obstruction or dilation. Multiple stones in GB -[place] admission [place] [address]13, which has trended down to 57 -AST, ALT, ALP, and bilirubin were all elevated on admission. AST and ALT liza vation have resolved. Bilirubin trending down and ALP is trending up. -Leukocytosis resolved -Afebrile -Patient fulfills 2 out of 3 criteria for pancreatitis and was thus diagnosed with likely pancreatitis -Patient cleared for ERCP with moderate to high risk by Cardiology. -Patient for ERCP today -Cholecystectomy likely to be done in outpatient setting -Xarelto held for ERCP -Continue with morphine PRN for pain -Continue with zofran PRN for nausea -General surgery, Dr. Colon, consulted for recommendations. Follow recs -GI, Dr. Bills, consulted for recommendations. Follow recs Diabetes Mellitus -HgbA1c: 8.4 -Continue with low SSI -Accuchecks ACHS Paroxysmal atrial fibrillation -EKG on admission showed atrial fibrillation but is rate controlled -Continue home amiodarone, metoprolol tartrate -Held xarelto due to ERCP likely Wednesday -Continue home aspirin Benign prostatic hyperplasia -Continue with home sildosin Coronary artery disease -Continue with home aspirin, lipitor, cozaar, and lopressor Systolic Congestive heart failure -Echo from 05/14/16: LVEF: 23.3%, four chamber dilation, RVSP 51, small pericardial effusion -Continue with home lasix, cozaar, lopressor -Continue with potassium chloride and magnesium oxide for side effects of lasix. Hypertension -Continue with home cozaar, lopressor Hyperlipidemia -Continue with home lipitor Hypothyroidism -Continue with home levothyroxine GI prophylaxis: protonix DVT prophylaxis: xarelto held, SCD Patient plan discussed with Dr. Bravo. <Rosalba Bravo - Last Filed: 06/24/18 14:54> Objective - Vital Signs/Intake and Output Vital Signs (last 24 hours): Temp Pulse Resp BP Pulse Ox 98.2 F 67 24 165/79 H 98 06/24/18 13:55 06/24/18 13:55 06/24/18 13:55 06/24/18 13:55 06/24/18 13:55 Intake and Output: 06/24/18 06/24/18 06:59 18:59 Intake Total 120 Output Total 100 Balance 20 - Medications Medications: Current Medications Amiodarone HCl (Cordarone) 200 mg PO DAILY [facility] Last Admin: 06/24/18 09:36 Dose: 200 mg Aspirin (Aspirin Chewable) 81 mg PO DAILY [facility] Last Admin: 06/24/18 09:32 Dose: Not Given Atorvastatin Calcium (Lipitor) 40 mg PO DAILY [facility] Last Admin: 06/23/18 09:49 Dose: 40 mg Dextrose (Dextrose 50% Inj) 0 ml IV STAT PRN; Protocol PRN Reason: Hypoglycemia Protocol Last Admin: 06/21/18 11:33 Dose: 50 ml Furosemide (Lasix) 40 mg PO 0800,1400 [facility] Last Admin: 06/23/18 13:53 Dose: 40 mg Lactated Ringer's (Lactated Ringer's) 1,000 mls @ 125 mls/hr IV .Q8H [facility] Last Admin: 06/21/18 01:16 Dose: 125 mls/hr Dextrose (Dextrose 5% In Water 1000 Ml) 1,000 mls @ 0 mls/hr IV .Q0M PRN; Protocol PRN Reason: Hypoglycemia Protocol Dextrose/Sodium Chloride (Dextrose 5%/0.45% Ns 1000 Ml) 1,000 mls @ 50 mls/hr IV .Q20H [facility] Last Admin: 06/22/18 23:46 Dose: 50 mls/hr Insulin Human Regular (Humulin R Low) 0 units SC ACHS [facility]; Protocol Last Admin: 06/24/18 09:32 Dose: Not Given Levothyroxine Sodium (Synthroid) 50 mcg PO 0600 [facility] Last Admin: 06/24/18 05:53 Dose: Not Given Losartan Potassium (Cozaar) 100 mg PO DAILY [facility] Last Admin: 06/24/18 09:37 Dose: 100 mg Magnesium Oxide (Mag-Ox) 400 mg PO DAILY [facility] Last Admin: 06/23/18 09:50 Dose: 400 mg Metoprolol Tartrate (Lopressor) 50 mg PO BID [facility] Last Admin: 06/24/18 09:38 Dose: 50 mg Morphine Sulfate (Morphine) 2 mg IVP Q6H PRN PRN Reason: Pain, severe (8-10) Non-Formulary Medication (Silodosin [Rapaflo]) 4 mg PO HS [facility] Last Admin: 06/22/18 21:38 Dose: Not Given Ondansetron HCl (Zofran Inj) 4 mg IVP Q6H PRN PRN Reason: Nausea/Vomiting Pantoprazole Sodium (Protonix Inj) 40 mg IVP DAILY [facility] Last Admin: 06/24/18 09:39 Dose: 40 mg Potassium Chloride (Klor-Con 10) 10 meq PO DAILY [facility] Last Admin: 06/23/18 09:48 Dose: 10 meq Rivaroxaban (Xarelto) 15 mg PO DAILY [facility]; Protocol - Labs Labs: 06/24/18 09:10 06/24/18 09:10 PT 12.9 SECONDS (9.4-12.5) H 06/23/18 11:00 INR 1.14 06/23/18 11:00 APTT 36.9 Seconds (26.9-38.3) 06/22/18 06:45 Attending/Attestation - Attestation I have personally seen and examined this patient.: Yes I have fully participated in the care of the patient.: Yes I have reviewed all pertinent clinical information, including history, physical exam and plan: Yes Notes (Text): 06/24/18 14:53 72 year old male with past medical history of afib on xarelto, diabetes, hypertension, dyslipidemia and CAD who presented with complaint of abdominal pain with nausea/vomiting. He was found to have cholelithiasis on US/CT with elevated lipase; admitted for gallstone pancreatitis. Abdominal pain has impro abel and lipase has come down. MRCP showed CBD stone and multiple stones in gallbladder. GI is following and patient is for ERCP today. Surgery is also following and recommended outpatient laparoscopic cholecystectomy. Xarelto is on hold for now. Patient was counselled on alcohol abstinence. Rosalba Bravo MD Hospitalist.
[2018-06-24] MEDS ORDERED: Propofol 10 mg/ml Inj (20 ML) ONE (14:52)
[2018-06-24] MEDS ORDERED: Lidocaine 1% Inj (20ml) ONE (14:53)
[2018-06-24] MEDS ORDERED: Etomidate 20 mg/10ml Inj IV ONE (14:53)
[2018-06-24] MEDS ORDERED: Succinylcholine 200 mg/10 ml Inj IV ONE (14:54)
[2018-06-24] MEDS ORDERED: Sevoflurane - Inhalation Anesthetic Liq (250 ml) ONE (15:28)
[2018-06-24] MEDS ORDERED: Rocuronium 10 mg/ml (5 ml) ONE (15:35)
[2018-06-24] MEDS ORDERED: Glycopyrrolate 0.2 mg/ml (2ml vial) ONE (16:22)
[2018-06-24] MEDS ORDERED: Metoprolol 1 mg/ml Inj IVP ONE ×3 (16:34→16:51)
[2018-06-24] MEDS ORDERED: Metoprolol 1 mg/ml Inj ONE (16:37)
[2018-06-24] MEDS ORDERED: Sodium Chloride 0.9% 1,000 ML IV SCH (16:45)
[2018-06-24] MEDS ORDERED: Morphine 4 mg/ml ISec ONE (16:50)
[2018-06-24] MEDS ORDERED: Morphine 2 mg/ml ISec IVP ONE (16:50)
[2018-06-24] MEDS ORDERED: Morphine 2 mg/ml ISec IVP STA (16:51)
[2018-06-24] MEDS: Potassium Chloride 10 mEq ER Tab PO SCH (17:21)
[2018-06-24] MEDS: Magnesium Oxide 400 mg Tab UD PO SCH (17:23)
--- NOTE | 2018-06-24 17:41 | RAD ---
Date of service: 06/24/2018 PROCEDURE: ERCP HISTORY: R/O OBSTRUCTION COMPARISON: None TECHNIQUE: Standard protocol for this study/examination. FINDINGS: Total fluoroscopic time (continuous mode) utilized during the procedure 91.2 seconds. Submitted images from the current procedure: 5.0 IMPRESSION: Less than 1 hr fluoroscopic assistance provided during performance of the procedure.
[2018-06-25] MEDS: Levothyroxine 50 MCG TAB PO SCH (05:25)
[2018-06-25 07:50] LABS: BASO # 0.02 K/mm3 (0.0-2.0); BASO % 0.3 % (0.0-3.0); EOS # 0.2 (0.0-0.7); EOS % 3.2 % (1.5-5.0); HEMOGLOBIN 11.6 g/dL (14.0-18.0); LYMPH # 0.7 (1.2-3.4); LYMPH % 11.2 % (22.0-35.0); MEAN CELL VOLUME 97.6 fl (80.0-105.0); MEAN CORPUSCULAR HEMOGLOBIN 30.4 pg (25.0-35.0); MEAN CORPUSCULAR HGB CONC 31.2 g/dl (31.0-37.0); MEAN PLATELET VOLUME 11.3 fl (7.0-11.0); MONO # 0.8 (0.1-0.6); MONO % 11.8 % (1.0-6.0); RBC 3.81 10^6/uL (3.5-6.1); WHITE BLOOD COUNT 6.5 10^3/uL (4.5-11.0)
[2018-06-25 07:57] LABS: ALBUMIN 3.7 g/dL (3.0-4.8); ALT/SGPT 46 U/L (7-56); AST/SGOT 59 U/L (17-59); BLOOD UREA NITROGEN 17 mg/dL (7-21); CALCIUM 8.8 mg/dL (8.4-10.5); GFR NON-AFRICAN AMERICAN 50
[2018-06-25] MEDS: Potassium Chloride 10 mEq ER Tab PO SCH (09:08)
[2018-06-25] MEDS: Magnesium Oxide 400 mg Tab UD PO SCH (09:08)
[2018-06-25] MEDS: Insulin Reg-LOW-Coverage SC SCH ×4 (09:09→21:20)
--- NOTE | 2018-06-25 11:25 | RAD ---
Date of service: 06/25/2018 HISTORY: follow up COMPARISON: 06/21/2018 FINDINGS: LUNGS: The lungs are well inflated and clear. PLEURA: No pleural effusions or pneumothorax. CARDIOVASCULAR: Persistent severe cardiomegaly. Status post CABG. There are aortic atherosclerotic calcifications present. OSSEOUS STRUCTURES: Within normal limits for the patient's age. VISUALIZED UPPER ABDOMEN: Normal. OTHER FINDINGS: There are multiple surgical clips in the right axilla. IMPRESSION: No active pulmonary disease. Persistent severe cardiomegaly.
--- NOTE | 2018-06-25 13:56 | CP.PCM.DIS ---
<RuthannmahnazBharath - Last Filed: 06/26/18 10:10> Provider - Provider Date of Admission: 06/20/18 19:06 Attending physician: Rosalba Bravo MD Primary care physician: NO PRIMARY CARE PROVIDER Consults: 06/20/18 19:08 Gastroenterology Consult Stat Comment: Consulting Provider: Crystal Bills V Consulting Physician: Crystal Bills V Reason for Consult: gallstone pancreatitis 06/20/18 22:15 Nursing Referral for Wound Care Routine Comment: Physician Instructions: Reason For Exam: SCABS TO RLE 06/21/18 08:00 Physician Consult Routine Comment: Consulting Provider: Brad Lehman Consulting Physician: Brad Lehman Reason for Consult: Gallstone pancreatitis 06/21/18 08:26 Cardiology Consult Routine Comment: Consulting Provider: Don Aponte Consulting Physician: Don Aponte Reason for Consult: cardio clearance for possible endo/surgery Time Spent in preparation of Discharge (in minutes): 60 Hospital Course - Lab Results Lab Results: Most Recent Lab Values WBC 6.5 10^3/uL (4.5-11.0) 06/25/18 06:00 RBC 3.81 10^6/uL (3.5-6.1) 06/25/18 06:00 Hgb 11.6 g/dL (14.0-18.0) L 06/25/18 06:00 Hct 37.2 % (42.0-52.0) L 06/25/18 06:00 MCV 97.6 fl (80.0-105.0) 06/25/18 06:00 MCH 30.4 pg (25.0-35.0) 06/25/18 06:00 MCHC 31.2 g/dl (31.0-37.0) 06/25/18 06:00 RDW 16.0 % (11.5-14.5) H 06/25/18 06:00 Plt Count 166 10^3/uL (120.0-450.0) 06/25/18 06:00 MPV 11.3 fl (7.0-11.0) H 06/25/18 06:00 Neut % (Auto) 73.5 % (50.0-68.0) H 06/25/18 06:00 Lymph % (Auto) 11.2 % (22.0-35.0) L 06/25/18 06:00 [place] % (Auto) 11.8 % (1.0-6.0) H 06/25/18 06:00 Eos % (Auto) 3.2 % (1.5-5.0) 06/25/18 06:00 Baso % (Auto) 0.3 % (0.0-3.0) 06/25/18 06:00 Lymph # (Auto) 0.7 (1.2-3.4) L 06/25/18 06:00 [place] # (Auto) 0.8 (0.1-0.6) H 06/25/18 06:00 Eos # (Auto) 0.2 (0.0-0.7) 06/25/18 06:00 Baso # (Auto) 0.02 K/mm3 (0.0-2.0) 06/25/18 06:00 Absolute Neuts (auto) 4.80 (1.4-6.5) 06/25/18 06:00 Retic Count 1.63 % (0.5-1.5) H 06/21/18 09:15 PT 12.9 SECONDS (9.4-12.5) H 06/23/18 11:00 INR 1.14 06/23/18 11:00 APTT 36.9 Seconds (26.9-38.3) 06/22/18 06:45 pO2 30 mm/Hg (30-55) 06/20/18 20:40 VBG pH 7.40 (7.32-7.43) 06/20/18 20:40 VBG pCO2 41.0 (40-60) 06/20/18 20:40 VBG HCO3 25.4 mmol/l (21-28) 06/20/18 20:40 VBG Total CO2 26.7 mmol.L (22-28) 06/20/18 20:40 VBG O2 Sat (Calc) 53.8 % (40-65) 06/20/18 20:40 VBG Base Excess 0.5 mmol/L (0.0-2.0) 06/20/18 20:40 VBG Potassium 4.2 mmol/L (3.6-5.2) 06/20/18 20:40 Sodium 136.0 mmol/L (132-148) 06/20/18 20:40 Chloride 107.0 mmol/L (98-107) 06/20/18 20:40 Glucose 69 mg/dl (75-110) L 06/20/18 20:40 Lactate 1.4 mmol/L (0.7-2.1) 06/20/18 20:40 FiO2 21.0 % 06/20/18 20:40 Crit Value Called To kathia Velázquez md 06/20/18 16:51 Crit Value Called By Thania magana md 06/20/18 16:51 Blood Gas Notified Time 1700 06/20/18 16:51 Sodium 136 mmol/L (132-148) 06/25/18 06:00 Potassium 3.7 mmol/L (3.6-5.0) 06/25/18 06:00 Chloride 103 mmol/L (98-107) 06/25/18 06:00 Carbon Dioxide 22 mmol/L (21-33) 06/25/18 06:00 Anion Gap 16 (10-20) 06/25/18 06:00 BUN 17 mg/dL (7-21) 06/25/18 06:00 Creatinine 1.4 mg/dl (0.8-1.5) 06/25/18 06:00 Est GFR ( Amer) > 60 06/25/18 06:00 Est GFR (Non-Af Amer) 50 06/25/18 06:00 POC Glucose (mg/dL) 317 mg/dL (65-110) H 06/25/18 11:07 Random Glucose 140 mg/dL (70-110) H 06/25/18 06:00 Hemoglobin A1c 8.4 % (4.2-6.5) H 06/21/18 06:30 Calcium 8.8 mg/dL (8.4-10.5) 06/25/18 06:00 Phosphorus 2.9 mg/dL (2.5-4.5) 06/23/18 06:30 Magnesium 1.8 mg/dL (1.7-2.2) 06/20/18 15:24 Total Bilirubin 6.5 mg/dL (0.2-1.3) H 06/25/18 06:00 Direct Bilirubin 3.8 mg/dL (0.0-0.4) H 06/21/18 09:15 AST 59 U/L (17-59) 06/25/18 06:00 ALT 46 U/L (7-56) 06/25/18 06:00 Alkaline Phosphatase 382 U/L (38-126) H 06/25/18 06:00 Lactate Dehydrogenase 493 U/L (333-699) 06/21/18 09:15 Total Protein 7.4 g/dL (5.8-8.3) 06/25/18 06:00 Albumin 3.7 g/dL (3.0-4.8) 06/25/18 06:00 Globulin 3.7 gm/dL 06/25/18 06:00 Albumin/Globulin Ratio 1.0 (1.1-1.8) L 06/25/18 06:00 Triglycerides 73 mg/dL (35-160) 06/21/18 06:30 Cholesterol 100 mg/dL (130-200) L 06/21/18 06:30 LDL Cholesterol Direct 49 mg/dL (0-129) 06/21/18 06:30 HDL Cholesterol 33 mg/dL (29-60) 06/21/18 06:30 Amylase 57 U/L (35-125) 06/24/18 07:10 Lipase 113 U/L (23-300) 06/23/18 06:30 Free T4 2.41 ng/dL (0.78-2.19) H 06/21/18 06:30 TSH 3rd Generation 2.58 mIU/mL (0.46-4.68) 06/21/18 06:30 Venous Blood Potassium 4.2 mmol/L (3.6-5.2) 06/20/18 20:40 Urine Color Yellow (YELLOW) 06/20/18 17:24 Urine Appearance Clear (CLEAR) 06/20/18 17:24 Urine pH 6.5 (4.7-8.0) 06/20/18 17:24 Ur Specific [place] 1.010 (1.005-1.035) 06/20/18 17:24 Urine Protein Negative mg/dL (<30 mg/dL) 06/20/18 17:24 Urine Glucose (UA) Negative mg/dL (NEGATIVE) 06/20/18 17:24 Urine Ketones Negative mg/dL (NEGATIVE) 06/20/18 17:24 Urine Blood Negative (NEGATIVE) 06/20/18 17:24 Urine Nitrate Negative (NEGATIVE) 06/20/18 17:24 Urine Bilirubin Negative (NEGATIVE) 06/20/18 17:24 Urine Urobilinogen 0.2 E.U./dL (<1 E.U./dL) 06/20/18 17:24 Ur Leukocyte Esterase Negative [place]/uL (NEGATIVE) 06/20/18 17:24 Alcohol, Quantitative < 10 mg/dL (0-10) 06/21/18 08:20 - Hospital Course Hospital Course: Bharath Honeycutt, PGY-1, Internal Medicine Discharge Summary for Dr. Bravo 72 year old male with past medical history of atrial fibrillation on xarelto, systolic congestive heart failure, diabetes mellitus type II, hypertension, hyperlipidemia, hypothyroidism, hemorrhoids, diverticulosis presented with diffuse abdominal pain that started about 1 day prior to admission after returning from outpatient echocardiogram with Dr. Aponte. Patient had diffuse, nonradiating pain associated with food. He had not eaten anything since the morning before the day of admission. He had bowel movements the day prior to admission. Upon admission, patient was given IV fluids and patient reported resolution of pain. In the emergency department, he received 2 L of IV fluid and was given 1 L of LR subsequently. He was started on morphine PRN for pain and zofran PRN for pain. CT abdomen and pelvis on 06/20 showed distended gallbladder. Cholelithiasis without evidence of acute cholecystitis. Pancreas was shown to be unremarkable. Gallbladder ultrasound on 06/20 showed cholelithiasis with no evidence of cholecystitis. [place] admission [place] [address] which trended down subsequently. As patient had elevated lipase and symptoms typical for pancreatitis, patient was diagnosed with gallstone pancreatitis. Lipid panel was within normal limits. AST, ALT, ALP, and bilirubin were all elevated on admission which improved as the admission progressed. Patient initially had leukocytosis which resolved. Blood alcohol level was unremarkable on admission. Xarelto was held in light of planned ERCP. MRCP on 06/21 showed 6 mm stone in the distal common duct. No obstruction or dilation. Multiple stones in GB. Patient was asymptomatic throughout admission. On 06/24, patient had ERCP which showed Z line regular, gastritis, duodenal polyp, duodenal diverticulum, choledocholithiasis with complete extraction of all gallstones and sphincterotomy performed. Patient had shortness of breath post procedure and given lasix with resolution of symptoms. Chest X ray on 06/25 showed no active pulmonary disease. LFTs worsened yesterday and patient was started on actigall. Today, LFTs improved and patient was found to be stable. Patient was found to be stable and ready for discharge. Patient was found to be stable and ready for discharge. Patient was told to follow up with PCP on Wednesday for repeat blood work. Patient was told to take all home medications as prescribed. Patient was told to follow up with Dr. Bills within [address] Lehman within 1 week. Patient will need cholecystectomy outpatient and thus needs close follow up with Dr. eLhman. Patient was told to restart xarelto and hold 5 days prior to cholecystectomy. In addition, patient was told to start actigall as per GI. Patient was told to return to the emergency department if he had any new or concerning symptoms. This is a brief summary of the events that occurred during this hospital admission. For more information, please refer to hospital documentation. Discharge Diagnoses Gallstone pancreatitis Diabetes Mellitus type II Paroxysmal Atrial Fibrillation Systolic Congestive Heart Failure Hypertension Benign Prostatic Hyperplasia Coronary Artery Disease - Date & Time of H&P Date of H&P: 06/20/18 Time of H&P: 23:25 Discharge Exam - Head Exam Head Exam: NORMAL INSPECTION, NORMOCEPHALIC - Eye Exam Eye Exam: EOMI Pupil Exam: NORMAL ACCOMODATION, PERRL - Respiratory Exam Respiratory Exam: Clear to PA & Lateral, NORMAL BREATHING PATTERN. absent: Rales, Rhonchi, Wheezes - Cardiovascular Exam Cardiovascular Exam: REGULAR RHYTHM, RRR, +S1, +S2. absent: Clicks, Gallop, Rubs - GI/Abdominal Exam GI & Abdominal Exam: Normal Bowel Sounds, Soft. absent: Distended, Firm, Guarding, Tenderness - Extremities Exam Extremities exam: full ROM, normal capillary refill, normal inspection - Neurological Exam Neurological exam: Alert, CN II-XII Intact, Oriented x3 - Skin Skin Exam: Dry, Intact, Normal Color Discharge Plan - Discharge Medications Prescriptions: Ursodiol [Actigall] 300 mg PO TID 14 Days #42 capsule - Follow Up Plan Condition: GOOD Disposition: HOME/ ROUTINE Instructions: Gallstones (DC), Endoscopic Retrograde Cholangiopancreatography (DC) Additional Instructions: Please follow up with primary care doctor on Wednesday, June 27 for repeat blood work. Please take all home medications as prescribed. Please follow up with GI, Dr. Bills, within 1 week. Please follow up with Surgery, Dr. Lehman, within 1 week. It is imperative for you to follow up for scheduling cholecystectomy. Continue to take your xarelto. Hold 5 days prior to cholecystectomy. Start actigall three times a day. Please return to the emergency department if you have any new or concerning symptoms. Referrals: Crystal Bills MD [Medical Doctor] - Brad Lehman MD [Medical Doctor] - Vance Cruz MD [Family Provider] - <Rosalba Bravo - Last Filed: 06/26/18 11:11> Provider - Provider Date of Admission: 06/20/18 19:06 Attending physician: Rosalba Bravo MD Primary care physician: NO PRIMARY CARE PROVIDER Consults: 06/20/18 19:08 Gastroenterology Consult Stat Comment: Consulting Provider: Crystal Bills V Consulting Physician: Crystal Bills V Reason for Consult: gallstone pancreatitis 06/20/18 22:15 Nursing Referral for Wound Care Routine Comment: Physician Instructions: Reason For Exam: SCABS TO RLE 06/21/18 08:00 Physician Consult Routine Comment: Consulting Provider: Brad Lehman Consulting Physician: Brad Lehman Reason for Consult: Gallstone pancreatitis 06/21/18 08:26 Cardiology Consult Routine Comment: Consulting Provider: Don Aponte Consulting Physician: Don Aponte Reason for Consult: cardio clearance for possible endo/surgery Hospital Course - Lab Results Lab Results: Most Recent Lab Values WBC 6.2 10^3/uL (4.5-11.0) 06/26/18 07:00 RBC 3.73 10^6/uL (3.5-6.1) 06/26/18 07:00 Hgb 11.5 g/dL (14.0-18.0) L 06/26/18 07:00 Hct 36.1 % (42.0-52.0) L 06/26/18 07:00 MCV 96.8 fl (80.0-105.0) 06/26/18 07:00 MCH 30.8 pg (25.0-35.0) 06/26/18 07:00 MCHC 31.9 g/dl (31.0-37.0) 06/26/18 07:00 RDW 15.9 % (11.5-14.5) H 06/26/18 07:00 Plt Count 170 10^3/uL (120.0-450.0) 06/26/18 07:00 MPV 11.5 fl (7.0-11.0) H 06/26/18 07:00 Neut % (Auto) 68.5 % (50.0-68.0) H 06/26/18 07:00 Lymph % (Auto) 17.0 % (22.0-35.0) L 06/26/18 07:00 [place] % (Auto) 9.5 % (1.0-6.0) H 06/26/18 07:00 Eos % (Auto) 4.7 % (1.5-5.0) 06/26/18 07:00 Baso % (Auto) 0.3 % (0.0-3.0) 06/26/18 07:00 Lymph # (Auto) 1.1 (1.2-3.4) L 06/26/18 07:00 [place] # (Auto) 0.6 (0.1-0.6) 06/26/18 07:00 Eos # (Auto) 0.3 (0.0-0.7) 06/26/18 07:00 Baso # (Auto) 0.02 K/mm3 (0.0-2.0) 06/26/18 07:00 Absolute Neuts (auto) 4.27 (1.4-6.5) 06/26/18 07:00 Retic Count 1.63 % (0.5-1.5) H 06/21/18 09:15 PT 12.9 SECONDS (9.4-12.5) H 06/23/18 11:00 INR 1.14 06/23/18 11:00 APTT 36.9 Seconds (26.9-38.3) 06/22/18 06:45 pO2 30 mm/Hg (30-55) 06/20/18 20:40 VBG pH 7.40 (7.32-7.43) 06/20/18 20:40 VBG pCO2 41.0 (40-60) 06/20/18 20:40 VBG HCO3 25.4 mmol/l (21-28) 06/20/18 20:40 VBG Total CO2 26.7 mmol.L (22-28) 06/20/18 20:40 VBG O2 Sat (Calc) 53.8 % (40-65) 06/20/18 20:40 VBG Base Excess 0.5 mmol/L (0.0-2.0) 06/20/18 20:40 VBG Potassium 4.2 mmol/L (3.6-5.2) 06/20/18 20:40 Sodium 136.0 mmol/L (132-148) 06/20/18 20:40 Chloride 107.0 mmol/L (98-107) 06/20/18 20:40 Glucose 69 mg/dl (75-110) L 06/20/18 20:40 Lactate 1.4 mmol/L (0.7-2.1) 06/20/18 20:40 FiO2 21.0 % 06/20/18 20:40 Crit Value Called To kathia Velázquez md 06/20/18 16:51 Crit Value Called By Thania magana md 06/20/18 16:51 Blood Gas Notified Time 1700 06/20/18 16:51 Sodium 137 mmol/L (132-148) 06/26/18 07:00 Potassium 3.7 mmol/L (3.6-5.0) 06/26/18 07:00 Chloride 103 mmol/L (98-107) 06/26/18 07:00 Carbon Dioxide 22 mmol/L (21-33) 06/26/18 07:00 Anion Gap 15 (10-20) 06/26/18 07:00 BUN 21 mg/dL (7-21) 06/26/18 07:00 Creatinine 1.7 mg/dl (0.8-1.5) H 06/26/18 07:00 Est GFR ( Amer) 48 06/26/18 07:00 Est GFR (Non-Af Amer) 40 06/26/18 07:00 POC Glucose (mg/dL) 165 mg/dL (65-110) H 06/26/18 07:29 Random Glucose 140 mg/dL (70-110) H 06/26/18 07:00 Hemoglobin A1c 8.4 % (4.2-6.5) H 06/21/18 06:30 Calcium 8.8 mg/dL (8.4-10.5) 06/26/18 07:00 Phosphorus 2.9 mg/dL (2.5-4.5) 06/23/18 06:30 Magnesium 1.8 mg/dL (1.7-2.2) 06/20/18 15:24 Total Bilirubin 4.1 mg/dL (0.2-1.3) H 06/26/18 07:00 Direct Bilirubin 3.8 mg/dL (0.0-0.4) H 06/21/18 09:15 AST 45 U/L (17-59) 06/26/18 07:00 ALT 41 U/L (7-56) 06/26/18 07:00 Alkaline Phosphatase 377 U/L (38-126) H 06/26/18 07:00 Lactate Dehydrogenase 493 U/L (333-699) 06/21/18 09:15 Total Protein 7.2 g/dL (5.8-8.3) 06/26/18 07:00 Albumin 3.6 g/dL (3.0-4.8) 06/26/18 07:00 Globulin 3.6 gm/dL 06/26/18 07:00 Albumin/Globulin Ratio 1.0 (1.1-1.8) L 06/26/18 07:00 Triglycerides 73 mg/dL (35-160) 06/21/18 06:30 Cholesterol 100 mg/dL (130-200) L 06/21/18 06:30 LDL Cholesterol Direct 49 mg/dL (0-129) 06/21/18 06:30 HDL Cholesterol 33 mg/dL (29-60) 06/21/18 06:30 Amylase 57 U/L (35-125) 06/24/18 07:10 Lipase 113 U/L (23-300) 06/23/18 06:30 Free T4 2.41 ng/dL (0.78-2.19) H 06/21/18 06:30 TSH 3rd Generation 2.58 mIU/mL (0.46-4.68) 06/21/18 06:30 Venous Blood Potassium 4.2 mmol/L (3.6-5.2) 06/20/18 20:40 Urine Color Yellow (YELLOW) 06/20/18 17:24 Urine Appearance Clear (CLEAR) 06/20/18 17:24 Urine pH 6.5 (4.7-8.0) 06/20/18 17:24 Ur Specific [place] 1.010 (1.005-1.035) 06/20/18 17:24 Urine Protein Negative mg/dL (<30 mg/dL) 06/20/18 17:24 Urine Glucose (UA) Negative mg/dL (NEGATIVE) 06/20/18 17:24 Urine Ketones Negative mg/dL (NEGATIVE) 06/20/18 17:24 Urine Blood Negative (NEGATIVE) 06/20/18 17:24 Urine Nitrate Negative (NEGATIVE) 06/20/18 17:24 Urine Bilirubin Negative (NEGATIVE) 06/20/18 17:24 Urine Urobilinogen 0.2 E.U./dL (<1 E.U./dL) 06/20/18 17:24 Ur Leukocyte Esterase Negative [place]/uL (NEGATIVE) 06/20/18 17:24 Alcohol, Quantitative < 10 mg/dL (0-10) 06/21/18 08:20 Attending/Attestation - Attestation I have personally seen and examined this patient.: Yes I have fully participated in the care of the patient.: Yes I have reviewed all pertinent clinical information, including history, physical exam and plan: Yes Notes (Text): 06/26/18 11:04 72 year old male with past medical history of afib on xarelto, diabetes, hypertension, dyslipidemia and CAD who presented with complaint of abdominal pain with nausea/vomiting. He was found to have cholelithiasis on US/CT with elevated lipase and admitted for gallstone pancreatitis. His abdominal pain improved and lipase came down. MRCP showed CBD stone and multiple stones in gallbladder. Patient is s/p ERCP on Wednesday. LFTs are improving today. Patient is cleared for discharge by GI on ursodial. Patient is discharged home. Follow up with Dr. Cruz; repeat CMP on Wednesday. Follow up with surgery for elective cholecystectomy. Follow up with GI and cardiology. Counselled on smoking abstinence. Rosalba Bravo MD Hospitalist.
--- NOTE | 2018-06-25 15:06 | CP.PCM.PN ---
<Bharath Honeycutt - Last Filed: 06/25/18 14:55> Subjective - Date & Time of Evaluation Date of Evaluation: 06/25/18 Time of Evaluation: 14:55 - Subjective Subjective: Bharath Honeycutt, PGY-1, Internal Medicine Progress Note for Dr. Bravo Patient seen and evaluated at bedside. Patient had no acute overnight events. Patient denies abdominal pain, nausea, vomiting, constipation, or diarrhea. Patient had shortness of breath yesterday after ERCP and was given lasix with resolution of symptoms. 12-point ROS was unremarkable except for what was mentioned above. Objective - Vital Signs/Intake and Output Vital Signs (last 24 hours): Temp Pulse Resp BP Pulse Ox 97.8 F 67 18 142/55 L 92 L 06/25/18 08:37 06/25/18 10:00 06/25/18 08:37 06/25/18 13:08 06/25/18 08:37 Intake and Output: 06/25/18 06/25/18 06:59 18:59 Intake Total 360 Output Total 400 Balance -40 - Medications Medications: Current Medications Aspirin (Aspirin Chewable) 81 mg PO DAILY [facility] Last Admin: 06/25/18 09:08 Dose: 81 mg Atorvastatin Calcium (Lipitor) 40 mg PO DAILY [facility] Last Admin: 06/25/18 09:08 Dose: 40 mg Dextrose (Dextrose 50% Inj) 0 ml IV STAT PRN; Protocol PRN Reason: Hypoglycemia Protocol Last Admin: 06/21/18 11:33 Dose: 50 ml Furosemide (Lasix) 40 mg PO 0800,1400 [facility] Last Admin: 06/25/18 13:08 Dose: 40 mg Glipizide (Glucotrol) 10 mg PO ACB [facility] Lactated Ringer's (Lactated Ringer's) 1,000 mls @ 125 mls/hr IV .Q8H [facility] Last Admin: 06/21/18 01:16 Dose: 125 mls/hr Dextrose (Dextrose 5% In Water 1000 Ml) 1,000 mls @ 0 mls/hr IV .Q0M PRN; Protocol PRN Reason: Hypoglycemia Protocol Insulin Detemir (Levemir) 30 unit SC HS [facility] Insulin Human Regular (Humulin R Low) 0 units SC ACHS [facility]; Protocol Last Admin: 06/25/18 13:08 Dose: 4 units Levothyroxine Sodium (Synthroid) 50 mcg PO 0600 [facility] Last Admin: 06/25/18 05:25 Dose: 50 mcg Losartan Potassium (Cozaar) 100 mg PO DAILY [facility] Last Admin: 06/25/18 09:08 Dose: 100 mg Magnesium Oxide (Mag-Ox) 400 mg PO DAILY [facility] Last Admin: 06/25/18 09:08 Dose: 400 mg Metformin HCl (Glucophage) 1,000 mg PO BIDWM [facility] Last Admin: 06/25/18 13:07 Dose: 1,000 mg Metoprolol Tartrate (Lopressor) 50 mg PO BID [facility] Last Admin: 06/25/18 09:08 Dose: 50 mg Morphine Sulfate (Morphine) 2 mg IVP Q6H PRN PRN Reason: Pain, severe (8-10) Non-Formulary Medication (Silodosin [Rapaflo]) 4 mg PO HS [facility] Last Admin: 06/22/18 21:38 Dose: Not Given Ondansetron HCl (Zofran Inj) 4 mg IVP Q6H PRN PRN Reason: Nausea/Vomiting Pantoprazole Sodium (Protonix Inj) 40 mg IVP DAILY [facility] Last Admin: 06/25/18 09:07 Dose: 40 mg Potassium Chloride (Klor-Con 10) 10 meq PO DAILY [facility] Last Admin: 06/25/18 09:08 Dose: 10 meq Rivaroxaban (Xarelto) 15 mg PO DAILY [facility]; Protocol - Labs Labs: 06/25/18 06:00 06/25/18 06:00 PT 12.9 SECONDS (9.4-12.5) H 06/23/18 11:00 INR 1.14 06/23/18 11:00 APTT 36.9 Seconds (26.9-38.3) 06/22/18 06:45 - Constitutional Appears: Well, Non-toxic, No Acute Distress - Head Exam Head Exam: ATRAUMATIC, NORMAL INSPECTION, NORMOCEPHALIC - Eye Exam Eye Exam: EOMI, PERRL - ENT Exam ENT Exam: Mucous Membranes Moist - Neck Exam Neck Exam: Full ROM - Respiratory Exam Respiratory Exam: Clear to Ausculation Bilateral, NORMAL BREATHING PATTERN. absent: Decreased Breath Sounds, Rales, Rhonchi, Wheezes - Cardiovascular Exam Cardiovascular Exam: IRREGULAR RHYTHM, Regular rate, +S1, +S2. absent: Clicks, Gallop, Rubs, Murmur - GI/Abdominal Exam GI & Abdominal Exam: Soft, Normal Bowel Sounds. absent: Distended, Firm, Guarding, Tenderness - Extremities Exam Extremities Exam: Full ROM, Normal Capillary Refill, Normal Inspection - Neurological Exam Neurological Exam: Alert, Awake, CN II-XII Intact, Oriented x3 - Psychiatric Exam Psychiatric exam: Normal Affect, Normal Mood - Skin Skin Exam: Dry, Intact, Normal Color Assessment and Plan - Assessment and Plan (Free Text) Assessment: 72 year old male with past medical history of Atrial Fibrillation on Xarelto, amiodarone, and metoprolol, diabetes mellitus type II, hypertension, hyperlipidemia, hemorrhoids, and diverticulosis presented with abdominal pain and intractible nausea and vomiting. CT abdomen and pelvis on 06/20 showed distended gallbladder. Cholelithiasis without evidence of acute cholecystitis. Pancreas was shown to be unremarkable. Gallbladder ultrasound also showed cholithiasis with no evidence of cholecystitis. MRCP on 06/21 showed 6 mm stone is the distal common duct. No obstruction or dilation. Multiple stones in GB. Patient was admitted for gallstone pancreatitis. Patient is status post ERCP. Plan: Abdominal pain likely 2/2 to gallstone pancreatitis -CT abdomen and pelvis 06/20: distended gallbladder. Cholelithiasis without evidence of acute cholecystitis. Pancreas was shown to be unremarkable. -Gallbladder ultrasound 06/20: cholelithiasis with no evidence of cholecystitis. -MRCP 06/21: 6 mm stone is the distal common duct. No obstruction or dilation. Multiple stones in GB -[place] admission [place] [address], which has trended down to 113 -AST, ALT, ALP, and bilirubin were all elevated on admission. AST and ALT elevation have resolved. Bilirubin and ALP is trending up. -Leukocytosis resolved -Afebrile -Patient fulfills 2 out of 3 criteria for pancreatitis and was thus diagnosed with likely pancreatitis -ERCP showed Z line regular, gastritis, duodenal polyp, duodenal diverticulum, choledocholithiasis with complete extraction of gallstones and sphincterotomy performed -Cholecystectomy likely to be done in outpatient setting -Will restart xarelto pending GI and Surgery recommendations for cholecystectomy -Continue with morphine PRN for pain -Continue with zofran PRN for nausea -General surgery, Dr. Colon, consulted for recommendations. Follow recs -GI, Dr. Bills, consulted for recommendations. Follow recs Diabetes Mellitus -HgbA1c: 8.4 -Continue with low SSI -Restarted home diabetes medications as patient is now on altered GI/hepatic diet. -Accuchecks ACHS Paroxysmal atrial fibrillation -EKG on admission showed atrial fibrillation but is rate controlled -Continue home amiodarone, metoprolol tartrate -Will restart xarelto pending GI and Surgery recommendations for cholecystectomy -Continue home aspirin Benign prostatic hyperplasia -Continue with home sildosin Coronary artery disease -Continue with home aspirin, lipitor, cozaar, and lopressor Systolic Congestive heart failure -Echo from 05/14/16: LVEF: 23.3%, four chamber dilation, RVSP 51, small pericardial effusion -Continue with home lasix, cozaar, lopressor -Continue with potassium chloride and magnesium oxide for side effects of lasix. Hypertension -Continue with home cozaar, lopressor Hyperlipidemia -Continue with home lipitor Hypothyroidism -Continue with home levothyroxine GI prophylaxis: protonix DVT prophylaxis: xarelto held, SCD Patient plan discussed with Dr. Bravo. <Rosalba Bravo - Last Filed: 06/25/18 15:17> Objective - Vital Signs/Intake and Output Vital Signs (last 24 hours): Temp Pulse Resp BP Pulse Ox 97.8 F 67 18 142/55 L 92 L 06/25/18 08:37 06/25/18 10:00 06/25/18 08:37 06/25/18 13:08 06/25/18 08:37 Intake and Output: 06/25/18 06/25/18 06:59 18:59 Intake Total 360 Output Total 400 Balance -40 - Medications Medications: Current Medications Aspirin (Aspirin Chewable) 81 mg PO DAILY [facility] Last Admin: 06/25/18 09:08 Dose: 81 mg Atorvastatin Calcium (Lipitor) 40 mg PO DAILY [facility] Last Admin: 06/25/18 09:08 Dose: 40 mg Dextrose (Dextrose 50% Inj) 0 ml IV STAT PRN; Protocol PRN Reason: Hypoglycemia Protocol Last Admin: 06/21/18 11:33 Dose: 50 ml Furosemide (Lasix) 40 mg PO 0800,1400 [facility] Last Admin: 06/25/18 13:08 Dose: 40 mg Glipizide (Glucotrol) 10 mg PO ACB [facility] Lactated Ringer's (Lactated Ringer's) 1,000 mls @ 125 mls/hr IV .Q8H [facility] Last Admin: 06/21/18 01:16 Dose: 125 mls/hr Dextrose (Dextrose 5% In Water 1000 Ml) 1,000 mls @ 0 mls/hr IV .Q0M PRN; Protocol PRN Reason: Hypoglycemia Protocol Insulin Detemir (Levemir) 30 unit SC HS [facility] Insulin Human Regular (Humulin R Low) 0 units SC ACHS [facility]; Protocol Last Admin: 06/25/18 13:08 Dose: 4 units Levothyroxine Sodium (Synthroid) 50 mcg PO 0600 [facility] Last Admin: 06/25/18 05:25 Dose: 50 mcg Losartan Potassium (Cozaar) 100 mg PO DAILY [facility] Last Admin: 06/25/18 09:08 Dose: 100 mg Magnesium Oxide (Mag-Ox) 400 mg PO DAILY [facility] Last Admin: 06/25/18 09:08 Dose: 400 mg Metformin HCl (Glucophage) 1,000 mg PO BIDWM [facility] Last Admin: 06/25/18 13:07 Dose: 1,000 mg Metoprolol Tartrate (Lopressor) 50 mg PO BID [facility] Last Admin: 06/25/18 09:08 Dose: 50 mg Morphine Sulfate (Morphine) 2 mg IVP Q6H PRN PRN Reason: Pain, severe (8-10) Non-Formulary Medication (Silodosin [Rapaflo]) 4 mg PO HS [facility] Last Admin: 06/22/18 21:38 Dose: Not Given Ondansetron HCl (Zofran Inj) 4 mg IVP Q6H PRN PRN Reason: Nausea/Vomiting Pantoprazole Sodium (Protonix Inj) 40 mg IVP DAILY [facility] Last Admin: 06/25/18 09:07 Dose: 40 mg Potassium Chloride (Klor-Con 10) 10 meq PO DAILY [facility] Last Admin: 06/25/18 09:08 Dose: 10 meq Rivaroxaban (Xarelto) 15 mg PO DAILY [facility]; Protocol Ursodiol (Actigall) 300 mg PO BID [facility] - Labs Labs: 06/25/18 06:00 06/25/18 06:00 PT 12.9 SECONDS (9.4-12.5) H 06/23/18 11:00 INR 1.14 06/23/18 11:00 APTT 36.9 Seconds (26.9-38.3) 06/22/18 06:45 Attending/Attestation - Attestation I have personally seen and examined this patient.: Yes I have fully participated in the care of the patient.: Yes I have reviewed all pertinent clinical information, including history, physical exam and plan: Yes Notes (Text): 06/25/18 15:12 72 year old male with past medical history of afib on xarelto, diabetes, hypertension, dyslipidemia and CAD who presented with complaint of abdominal pain with nausea/vomiting. He was found to have cholelithiasis on US/CT with elevated lipase; admitted for gallstone pancreatitis. Abdominal pain has improved and lipase has come down. MRCP showed CBD stone and multiple stones in gallbladder. Patient is s/p ERCP yesterday. Monitor one more day as per GI as his total bilirubin and alk phosph is increased today. Yesterday after procedure he has episode of shortness of breath which improved with dose of iv lasix. Repeat CXR today was negative for congestion. Surgery is also following and recommended outpatient laparoscopic cholecystectomy. Can resume xarelto when ok with GI/surgery. Patient was counselled on alcohol abstinence. Roslaba Bravo MD Hospitalist.
[2018-06-25 16:57] VITALS: RESP 20
[2018-06-25] MEDS: SILODOSIN 4 MG PO SCH (21:54)
[2018-06-25] MEDS ORDERED: Enoxaparin 30 mg Syringe SC ONE (22:00)
[2018-06-25] MEDS ORDERED: Insulin Detemir 100 units/ml Vial (Levemir) SC SCH (22:00)
--- NOTE | 2018-06-25 22:27 | PN ---
DATE: 06/25/2018 Covering for Don Cullen MD SUBJECTIVE: The patient underwent ERCP yesterday with removal of calculi/ from the biliary/pancreatic duct. It was reported to me that in the recovery room, the patient developed atrial fibrillation with 2-second pauses. Upon his arrival back to the telemetry unit, he was in sinus rhythm. The patient was 18 at the time of my evaluation. He denies any abdominal pain, nausea or vomiting, dizziness or palpitation, and no chest pain. He is in sinus rhythm on the monitor. PHYSICAL EXAMINATION: VITAL SIGNS: Blood pressure 151/49, heart rate 65, temperature 97.8 and respirations 18. HEENT: Normocephalic. CHEST: Clear. HEART: S1 and S2 regular. ABDOMEN: Soft. EXTREMITIES: 1+ pitting edema. LABORATORY DATA: Today's hemoglobin and hematocrit are 11.6 and 37.2. White count and platelet count are within normal limits. Today's SMA-7 is within normal limits except for glucose of 140. Admitting EKG revealed atrial fibrillation at 66, cannot rule out anteroseptal infarct. ASSESSMENT: 1. Paroxysmal atrial fibrillation. 2. Coronary artery disease, status post coronary artery bypass surgery. 3. Congestive heart failure. The most recent echo in Dr. Aponte's office revealed ejection fraction of 25%. 4. Mild anemia. RECOMMENDATIONS: Continue aspirin 81 mg once a day, Cozaar 100 mg once a day, Glucophage 1 g twice a day, Klor-Con 10 mEq once a day, Lasix 40 mg p.o. twice a day, Lipitor mg once a day, Lopressor 50 mg twice a day, Synthroid 50 mcg once a day, Xarelto 15 mg once a day. Obtain 12-lead EKG. Vipul Deluca MD
--- NOTE | 2018-06-25 22:33 | CP.PCM.PN ---
Subjective - Date & Time of Evaluation Date of Evaluation: 06/25/18 Time of Evaluation: 15:45 - Subjective Subjective: This patient was seen and evaluated earlier. No complaints of abdominal pain tolerating diet wants to go home Objective - Vital Signs/Intake and Output Vital Signs (last 24 hours): Temp Pulse Resp BP Pulse Ox 97.8 F 55 L 20 120/70 92 L 06/25/18 16:57 06/25/18 18:00 06/25/18 16:57 06/25/18 16:57 06/25/18 08:37 Intake and Output: 06/25/18 06/26/18 18:59 06:59 Intake Total 1140 Balance 1140 - Medications Medications: Current Medications Aspirin (Aspirin Chewable) 81 mg PO DAILY [facility] Last Admin: 06/25/18 09:08 Dose: 81 mg Atorvastatin Calcium (Lipitor) 40 mg PO DAILY [facility] Last Admin: 06/25/18 09:08 Dose: 40 mg Dextrose (Dextrose 50% Inj) 0 ml IV STAT PRN; Protocol PRN Reason: Hypoglycemia Protocol Last Admin: 06/21/18 11:33 Dose: 50 ml Furosemide (Lasix) 40 mg PO 0800,1400 [facility] Last Admin: 06/25/18 13:08 Dose: 40 mg Glipizide (Glucotrol) 10 mg PO ACB [facility] Lactated Ringer's (Lactated Ringer's) 1,000 mls @ 125 mls/hr IV .Q8H [facility] Last Admin: 06/21/18 01:16 Dose: 125 mls/hr Dextrose (Dextrose 5% In Water 1000 Ml) 1,000 mls @ 0 mls/hr IV .Q0M PRN; Protocol PRN Reason: Hypoglycemia Protocol Insulin Detemir (Levemir) 30 unit SC HS [facility] Last Admin: 06/25/18 21:53 Dose: Not Given Insulin Human Regular (Humulin R Low) 0 units SC ACHS [facility]; Protocol Last Admin: 06/25/18 21:20 Dose: Not Given Levothyroxine Sodium (Synthroid) 50 mcg PO 0600 [facility] Last Admin: 06/25/18 05:25 Dose: 50 mcg Losartan Potassium (Cozaar) 100 mg PO DAILY [facility] Last Admin: 06/25/18 09:08 Dose: 100 mg Magnesium Oxide (Mag-Ox) 400 mg PO DAILY [facility] Last Admin: 06/25/18 09:08 Dose: 400 mg Metformin HCl (Glucophage) 1,000 mg PO BIDWM [facility] Last Admin: 06/25/18 17:34 Dose: 1,000 mg Metoprolol Tartrate (Lopressor) 50 mg PO BID [facility] Last Admin: 06/25/18 17:34 Dose: 50 mg Morphine Sulfate (Morphine) 2 mg IVP Q6H PRN PRN Reason: Pain, severe (8-10) Non-Formulary Medication (Silodosin [Rapaflo]) 4 mg PO HS [facility] Last Admin: 06/25/18 21:54 Dose: Not Given Ondansetron HCl (Zofran Inj) 4 mg IVP Q6H PRN PRN Reason: Nausea/Vomiting Pantoprazole Sodium (Protonix Inj) 40 mg IVP DAILY [facility] Last Admin: 06/25/18 09:07 Dose: 40 mg Potassium Chloride (Klor-Con 10) 10 meq PO DAILY [facility] Last Admin: 06/25/18 09:08 Dose: 10 meq Rivaroxaban (Xarelto) 15 mg PO DAILY [facility]; Protocol Ursodiol (Actigall) 300 mg PO BID [facility] Last Admin: 06/25/18 17:34 Dose: 300 mg - Labs Labs: 06/25/18 06:00 06/25/18 06:00 PT 12.9 SECONDS (9.4-12.5) H 06/23/18 11:00 INR 1.14 06/23/18 11:00 APTT 36.9 Seconds (26.9-38.3) 06/22/18 06:45 - Constitutional Appears: Well, No Acute Distress - Head Exam Head Exam: ATRAUMATIC, NORMOCEPHALIC - Eye Exam Eye Exam: Scleral icterus Pupil Exam: PERRL - ENT Exam ENT Exam: Mucous Membranes Moist (And) - Neck Exam Neck Exam: Full ROM. absent: Lymphadenopathy - Respiratory Exam Respiratory Exam: Clear to Ausculation Bilateral, NORMAL BREATHING PATTERN. absent: Accessory Muscle Use (Solid I am very lengthy order to do) - GI/Abdominal Exam GI & Abdominal Exam: Soft, Normal Bowel Sounds. absent: Tenderness, Mass - Neurological Exam Neurological Exam: Alert, Awake, Oriented x3 Assessment and Plan - Assessment and Plan (Free Text) Assessment: Patient is a 72 year old male with a PMHx significant for atrial fibrillation on Xarelto, DM2, HTN, HLD and hypothyroidism who was admitted with abdominal pain. Patient was found to have CBD stone and cholelithiasis. Patient had an obstructive jaundice have. Patient underwent a ERCP sphincterotomy and balloon sweep and removal of the CBD stones and sludge. Post cholangiogram CBD appears unremarkable. Patient has no symptoms now tolerating the diet But the concern is the review of the labs showed her LFTs is increased. Total bilirubin has gone up to 6.5. The etiology for increased bilirubin could be due to edema at the distal CBD pylorus. The other possibility is slipping of a a stone into the common bile duct from the gallbladder.
[2018-06-26 00:15] VITALS: TEMP 98.2; O2SAT 96
[2018-06-26] MEDS: Levothyroxine 50 MCG TAB PO SCH (05:14)
--- NOTE | 2018-06-26 05:41 | CARD ---
APPROVED REPORT Date of service: 06/25/2018 EKG Measurement Heart [id number] <Conclusion> Junctional rhythm Low voltage QRS Cannot rule out Anteroseptal infarct, age undetermined Abnormal ECG
[2018-06-26 07:36] LABS: BASO # 0.02 K/mm3 (0.0-2.0); BASO % 0.3 % (0.0-3.0); EOS # 0.3 (0.0-0.7); EOS % 4.7 % (1.5-5.0); HEMOGLOBIN 11.5 g/dL (14.0-18.0); LYMPH # 1.1 (1.2-3.4); MEAN CELL VOLUME 96.8 fl (80.0-105.0); MEAN CORPUSCULAR HEMOGLOBIN 30.8 pg (25.0-35.0); MEAN CORPUSCULAR HGB CONC 31.9 g/dl (31.0-37.0); MEAN PLATELET VOLUME 11.5 fl (7.0-11.0); MONO # 0.6 (0.1-0.6); MONO % 9.5 % (1.0-6.0); RBC 3.73 10^6/uL (3.5-6.1); RED CELL DISTRIBUTION WIDTH 15.9 % (11.5-14.5); WHITE BLOOD COUNT 6.2 10^3/uL (4.5-11.0)
[2018-06-26 08:06] LABS: ALBUMIN 3.6 g/dL (3.0-4.8); CALCIUM 8.8 mg/dL (8.4-10.5)
[2018-06-26] MEDS: Potassium Chloride 10 mEq ER Tab PO SCH (10:11)
[2018-06-26] MEDS: Magnesium Oxide 400 mg Tab UD PO SCH (10:11)
[2018-06-26 10:12] VITALS: BP 116/66
[2018-06-26] MEDS: Insulin Reg-LOW-Coverage SC SCH (10:12)
[2018-06-26 11:17] VITALS: PULSE 72
--- NOTE | 2018-06-27 09:40 | PN ---
DATE: 06/24/2018 LOCATION: The patient is in room 378, bed 1. REASON FOR CONSULTATION AND FOLLOW UP: Coronary artery disease, atrial fibrillation, cardiomyopathy, abdominal pain, found to have gallstones and also common bile duct stones. HISTORY OF PRESENT ILLNESS: The patient with known case of coronary artery disease, atrial fibrillation, diabetes, hypertension, hyperlipidemia, hypothyroidism, coronary artery disease, status post bypass surgery twice one was 22 years ago and one was 15 years ago. Recent echo done at my office showed LV ejection fraction of 25%, mild mitral regurgitation, mild to moderate tricuspid regurgitation, mild to moderate aortic stenosis. The patient is sitting in chair without any chest pain, shortness of breath, or palpitation. PHYSICAL EXAMINATION: VITAL SIGNS: Blood pressure 156/69, respirations 20, and pulse 60, temperature 97.8. HEENT: Head is normocephalic. Eyes, pupils normal. Conjunctivae normal. NECK: JVP low. Carotids equal. THORAX: AP diameter normal. LUNGS: Clear. CARDIOVASCULAR: S1 and S2. ABDOMEN: Soft. Bowel sounds normal. EXTREMITIES: No clubbing. No cyanosis. LABORATORY DATA: WBC 6.1, hemoglobin 11.4, hematocrit 35.7 and platelets 166. Sodium 137, potassium 4, BUN 17, creatinine 1.5, sugar 130, and total bilirubin 5.7. AST 59, ALT 50. Alkaline phosphatase 374, total protein 7.5 and albumin 3.7. MRCP showed 6 mm gallstone in the common bile duct and also gallbladder shows gallstones. Liver function test had showed improvement and they were elevated on admission. DIAGNOSES: Abdominal pain, gallstones, common bile duct stone, cardiomyopathy, coronary artery disease, coronary artery bypass graft x2, atrial fibrillation, hypertension, diabetes, hyperlipidemia, hypothyroidism. PLAN: The patient is scheduled for endoscopic retrograde cholangio-pancreatography, The patient Xarelto has been on hold. Clinically, cardiac status stay stable, The patient is on amiodarone 200 mg daily, aspirin 81 mg daily, Lipitor 40 mg daily, Lasix 40 mg twice daily, Synthroid 50 mcg daily, Cozaar 100 mg daily, Lopressor 50 mg twice daily,, potassium 10 mEq daily, Xarelto which has been old was on 15 mg daily. Continue intravenous therapy. The patient is scheduled for endoscopic retrograde cholangio-pancreatography today. From cardiac point of view the patient can go from moderate to high risk for an endoscopic retrograde cholangio-pancreatography there is no absolute contraindication. We will continue current therapy. We will follow you. Don Aponte MD
== END 2018-06-26 11:52 | disposition home or self-care (01) | DRG 439 ==
LOC: ED 14:25 → ERH 19:06 → 3RSO 21:40
PROVIDERS: ADMIT Hospitalist; ATTEND Internal Medicine
PROC: 0DB98ZX Excision of Duodenum, Via Natural or Artificial Opening Endoscopic, Diagnostic (ICD-10-PCS; principal; 2018-06-24 13:30)
PROC: 0DB68ZX Excision of Stomach, Via Natural or Artificial Opening Endoscopic, Diagnostic (ICD-10-PCS; 2018-06-24 13:30)
PROC: 0FC98ZZ Extirpation of Matter from Common Bile Duct, Via Natural or Artificial Opening Endoscopic (ICD-10-PCS; 2018-06-24 13:30)
DX: K85.10 Biliary acute pancreatitis without necrosis or infection (principal); I50.22 Chronic systolic (congestive) heart failure; I48.1 Persistent atrial fibrillation; N17.9 Acute kidney failure, unspecified; K80.70 Calculus of gallbladder and bile duct without cholecystitis without obstruction; E11.9 Type 2 diabetes mellitus without complications; Z79.84 Long term (current) use of oral hypoglycemic drugs; Z79.899 Other long term (current) drug therapy; Z79.01 Long term (current) use of anticoagulants; Z79.890 Hormone replacement therapy; I11.0 Hypertensive heart disease with heart failure; I48.0 Paroxysmal atrial fibrillation; E78.5 Hyperlipidemia, unspecified; E03.9 Hypothyroidism, unspecified; E66.9 Obesity, unspecified; I25.5 Ischemic cardiomyopathy; I25.10 Atherosclerotic heart disease of native coronary artery without angina pectoris; I08.2 Rheumatic disorders of both aortic and tricuspid valves; E78.00 Pure hypercholesterolemia, unspecified; K31.7 Polyp of stomach and duodenum; K57.10 Diverticulosis of small intestine without perforation or abscess without bleeding; K29.70 Gastritis, unspecified, without bleeding; D64.9 Anemia, unspecified; I48.2 Chronic atrial fibrillation; N40.0 Benign prostatic hyperplasia without lower urinary tract symptoms; Z80.0 Family history of malignant neoplasm of digestive organs; Z80.8 Family history of malignant neoplasm of other organs or systems; Z82.49 Family history of ischemic heart disease and other diseases of the circulatory system; Z85.820 Personal history of malignant melanoma of skin; Z86.010 Personal history of colon polyps; Z87.01 Personal history of pneumonia (recurrent); Z87.891 Personal history of nicotine dependence; Z95.1 Presence of aortocoronary bypass graft; Z95.5 Presence of coronary angioplasty implant and graft; Z96.653 Presence of artificial knee joint, bilateral; Z68.36 Body mass index [BMI] 36.0-36.9, adult

== ENCOUNTER 2018-07-07 09:11 | Outpatient (CLI) | payer MEDICARE, BC | END 2018-07-07 09:12 | disposition home or self-care (01) | LOC: CARDIO 09:11 ==